=== PATIENT | female | born 1935 | race Caucasian/White ===

== ENCOUNTER → 2018-08-01 09:31 | Outpatient (CLI) | payer OTHER, SELFPAY ==
[2018-08-01 09:57] LABS: Hemoglobin 13.6 g/dL (12.0-16.0); Mean Corpuscular Hemoglobin 29.1 PG (26-34); Mean Corpuscular Volume 85.4 fL (80-100); Platelet Count 274 X10^3/uL (150-400); Red Blood Cell Count 4.68 X10^6/uL (4.0-5.2); Red Cell Distribution Width 14.4 % (11.6-14.8); White Blood Cell Count 7.5 X10^3/uL (4.5-11.0)
[2018-08-01 10:10] LABS: Hemoglobin A1C% w Est Avg Glu 5.9 % (4.0-6.0)
[2018-08-01 10:15] LABS: Alanine Aminotransferase 33 IU/L (9-52); Albumin 4.6 g/dL (3.5-5.0); Albumin Globulin Ratio 1.5 (1.0-2.8); Alkaline Phosphatase 71 U/L (38-126); Aspartate Aminotransferase 28 IU/L (14-36); BUN Creatinine Ratio 12.9 (6-22); Bilirubin Total 0.3 mg/dL (0.2-1.3); Blood Urea Nitrogen 9 mg/dL (7-17); Calcium 9.4 mg/dL (8.4-10.2); Carbon Dioxide 27 mmol/L (22-32); Chloride 101 mmol/L (98-107); Cholesterol 171 mg/dL (140-199); Estimated Glomerular Filt Rate > 60.0 mL/min (>60); Globulin 3.1 g/dL (1.7-4.1); Glucose 97 mg/dL (80-110); HDL Cholesterol 56 mg/dL (40-60); HEMOLYSIS < 15 (0-50); LDL Cholesterol Calculated 80 mg/dL (<100); Potassium 3.8 mmol/L (3.4-5.1); Sodium 140 mmol/L (137-145); Total Protein 7.7 g/dL (6.3-8.2); Triglycerides 173 mg/dL (35-150)
[2018-08-01 10:33] LABS: Neutrophils Absolute Manual 3975 /uL (3000-5900); Total Cells Counted 100
[2018-08-01 10:43] LABS: Thyroid Stimulating Hormone 1.62 uIU/mL (0.47-4.68)
== END ==
PROVIDERS: Family Provider Family Medicine; PCP Family Medicine; Visit Provider Family Medicine
DX: E78.5 Hyperlipidemia, unspecified (principal); I10 Essential (primary) hypertension; Z13.0 Encounter for screening for diseases of the blood and blood-forming organs and certain disorders involving the immune mechanism; Z13.29 Encounter for screening for other suspected endocrine disorder
CPT/HCPCS: 36415; 80053; 80061; 83036; 84443; 85025

== ENCOUNTER → 2018-08-14 12:39 | Outpatient (CLI) | payer OTHER, SELFPAY ==
[2018-08-17 16:01] LABS: Fecal Immunochemical Test NOT DETECTED
== END ==
PROVIDERS: PCP Family Medicine; Visit Provider Family Medicine
DX: Z12.11 Encounter for screening for malignant neoplasm of colon (principal)
CPT/HCPCS: 82274

== ENCOUNTER → 2018-08-25 12:17 | Outpatient (CLI) | payer OTHER, SELFPAY ==
--- NOTE | 2018-08-25 | DI.MG.S_ITS ---
BILATERAL DIGITAL SCREENING MAMMOGRAM 3D/2D WITH CAD: 08/25/2018 CLINICAL: Routine screening. Family history of breast cancer. Comparison is made to exams dated: 04/29/2017 mammogram, 04/14/2016 mammogram, and 04/03/2015 mammogram - [facility]. The tissue of both breasts is heterogeneously dense. This may lower the sensitivity of mammography. Current study was also evaluated with a Computer Aided Detection (CAD) system. No significant masses, calcifications, or other findings are seen in either breast. There has been no significant interval change. IMPRESSION: NEGATIVE There is no mammographic evidence of malignancy. A 1 year screening mammogram is recommended. This exam was interpreted at Station ID: [id number]. NOTE: For mammograms, a report in lay terms will be sent to the patient. Approximately 15% of breast malignancies will not be visualized mammographically. In the management of a palpable breast mass, a negative mammogram must not discourage biopsy of a clinically suspicious lesion. Electronically Signed By: Jon mathias/chas:08/25/2018 14:22:28 letter sent: Normal Exam ACR BI-RADS Category 1: Negative [id number]
== END ==
PROVIDERS: Family Provider Family Medicine; PCP Family Medicine; Visit Provider Family Medicine
DX: Z12.31 Encounter for screening mammogram for malignant neoplasm of breast (principal); M81.0 Age-related osteoporosis without current pathological fracture; Z78.0 Asymptomatic menopausal state; E07.9 Disorder of thyroid, unspecified; Z80.3 Family history of malignant neoplasm of breast; Z82.62 Family history of osteoporosis; Z87.891 Personal history of nicotine dependence
CPT/HCPCS: 77063; 77067; 77080

== ENCOUNTER → 2018-08-29 14:02 | Outpatient (CLI) | payer OTHER, SELFPAY ==
--- NOTE | 2018-08-29 | DI.CT.S_ITS ---
PROCEDURE: CT ANGIO CHEST PE PROTOCOL INDICATIONS: PULMONARY NODULES TECHNIQUE: After the administration of intravenous contrast, 2 mm thick sections acquired from the pulmonary apices to the posterior costophrenic angles. 3-dimensional maximum intensity projection (MIP) coronal and sagittal reformats were then acquired through the thorax. For radiation dose reduction, the following was used: automated exposure control, adjustment of mA and/or kV according to patient size. COMPARISON: [facility], CT, THORAX WITHOUT CONTRAST, 07/18/2017, 16:13. FINDINGS: Image quality: Excellent. Pulmonary arteries: Pulmonary arteries are normal in size, and demonstrate no intraluminal filling defects to suggest central pulmonary embolism. Lungs and pleura: Bibasilar scarring. Previously seen small bilateral pulmonary nodules are unchanged. No new pulmonary nodules are present. There is moderate apical predominant emphysema. No pleural effusions or pneumothorax. Central and peripheral airways are patent. Mediastinum: Heart size is normal, without pericardial effusion. No mediastinal or hilar adenopathy. Thoracic aorta is normal in caliber and enhancement. Esophagus is normal in caliber. Small hiatal hernia. Bones and chest wall: No suspicious bony lesions. Left chest wall pacer. Ribs and thoracic spine appear intact throughout. Thyroid gland is within normal limits. No axillary or supraclavicular adenopathy. Abdomen: Visualized upper abdominal solid organs appear normal in the early arterial phase of enhancement. IMPRESSION: 1. No pulmonary embolus. 2. No change in small bilateral pulmonary nodules. No new pulmonary nodules. 3. Emphysema. 4. Small hiatal hernia. Dictated by: David Marrufo M.D. on 08/29/2018 at 15:36 Approved by: David Marrufo M.D. on 08/29/2018 at 15:41
[2018-08-29 14:31] LABS: BUN Creatinine Ratio 18.6 (6-22); Blood Urea Nitrogen 13 mg/dL (7-17); Estimated Glomerular Filt Rate > 60.0 mL/min (>60)
== END ==
PROVIDERS: Family Provider Family Medicine; PCP Family Medicine; Visit Provider Internal Medicine Critical Care Medicine
DX: J43.9 Emphysema, unspecified (principal); R91.8 Other nonspecific abnormal finding of lung field; K44.9 Diaphragmatic hernia without obstruction or gangrene
CPT/HCPCS: 36415; 71275; 82565; 84520; Q9967

== ENCOUNTER 2018-12-06 14:30 | Outpatient (RCR) | payer OTHER, SELFPAY ==
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
== END 2019-02-06 11:58 | disposition home or self-care (01) ==
LOC: PHYS 14:30
PROVIDERS: PCP Family Medicine; Visit Provider Family Medicine
DX: M54.5 Low back pain (principal)
CPT/HCPCS: 97010; 97014; 97110; 97112; 97140; 97162; G0283

== ENCOUNTER 2018-12-14 20:49 | Emergency (ER) | payer OTHER, SELFPAY ==
[2018-12-14 20:57] VITALS: BP 195/89; PULSE 89; RESP 15; TEMP 37; O2SAT 93
--- NOTE | 2018-12-14 21:45 | DI.CT.S_ITS ---
PROCEDURE: CT HEAD/BRAIN WO CON INDICATIONS: blurry vision now resolved TECHNIQUE: Noncontrast 4.5 mm thick angled axial sections acquired from the foramen magnum to the vertex, with coronal and sagittal reformats. For radiation dose reduction, the following was used: automated exposure control, adjustment of mA and/or kV according to patient size. COMPARISON: None. FINDINGS: Image quality: Excellent. CSF spaces: Basal cisterns are patent. No extra-axial fluid collections. The ventricles are symmetric in size and shape. Brain: No intracranial bleeds or masses. There is cerebral volume loss for age, with resultant ventricular and sulcal prominence. There are periventricular and deep white matter chronic small vessel ischemic changes. There is intracranial internal carotid artery atherosclerosis. Skull and face: Calvarium and visualized facial bones appear intact, without suspicious lesions. Sinuses: Visualized sinuses and mastoids are clear. IMPRESSION: No CT evidence of acute intracranial pathology. 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 Dictated by: Colin Brambila M.D. on 12/14/2018 at 21:59 Approved by: Colin Brambila M.D. on 12/14/2018 at 22:00
[2018-12-14 22:34] LABS: Add Manual Diff / Slide Review NO; Basophils Absolute Auto 100 /uL (0-100); Basophils Percent Auto 0.7 % (0-2); Eosinophils Absolute Auto 200 /uL (0-450); Eosinophils Percent Auto 2.2 % (2-4); Hemoglobin 13.3 g/dL (12.0-16.0); Lymphocytes Absolute Auto 3100 /uL (1100-4500); Lymphocytes Percent Auto 27.3 % (25-40); Mean Corpuscular HGB Conc 33.3 % (30-36); Mean Corpuscular Hemoglobin 28.9 PG (26-34); Mean Corpuscular Volume 86.8 fL (80-100); Monocytes Absolute Auto 1200 /uL (0-900); Monocytes Percent Auto 10.4 % (3-14); Neutrophils Absolute Auto 6600 /uL (1500-7000); Neutrophils Percent Auto 59.4 % (50-75); Platelet Count 273 X10^3/uL (150-400); Red Cell Distribution Width 13.9 % (11.6-14.8); White Blood Cell Count 11.2 X10^3/uL (4.5-11.0)
[2018-12-14 22:39] VITALS: BP 188/89; PULSE 75; RESP 18; O2SAT 95
[2018-12-14 22:39] LABS: Alanine Aminotransferase 27 IU/L (9-52); Albumin Globulin Ratio 1.5 (1.0-2.8); Alkaline Phosphatase 86 U/L (38-126); Aspartate Aminotransferase 30 IU/L (14-36); BUN Creatinine Ratio 21.4 (6-22); Bilirubin Total 0.3 mg/dL (0.2-1.3); Blood Urea Nitrogen 15 mg/dL (7-17); Calcium 9.7 mg/dL (8.4-10.2); Carbon Dioxide 27 mmol/L (22-32); Chloride 97 mmol/L (98-107); Creatine Kinase 118 U/L (30-135); Estimated Glomerular Filt Rate > 60.0 mL/min (>60); Globulin 3.4 g/dL (1.7-4.1); Glucose 111 mg/dL (80-110); Potassium 3.7 mmol/L (3.4-5.1); Sodium 135 mmol/L (137-145); Total Protein 8.4 g/dL (6.3-8.2)
[2018-12-14 22:49] LABS: Bacteria Urine Occasional (0-1); Culture Indicated Urine Specimen Cultured; RBC Urine 0-1/HPF (0-5/HPF); Squamous Epithelial Cell Urine 1-5 /HPF; WBC Urine 1-5/HPF (0-5/HPF)
[2018-12-14 22:50] LABS: Troponin I < 0.012 ng/mL (0.01-0.034)
[2018-12-14 22:55] LABS: CKMB % Relative Index 1.7 % (1.5-5.0); Creatine Kinase MB 1.97 ng/mL (<2.37); HEMOLYSIS 29 (0-50)
[2018-12-14 23:10] VITALS: O2SAT 91
[2018-12-14 23:25] VITALS: BP 166/76; PULSE 82; RESP 18; O2SAT 95
--- NOTE | 2018-12-14 23:39 | ED_ITS ---
HPI - Neuro Symptoms/Deficit General Chief Complaint: Eye Problems Stated Complaint: STATES BP IS TOO HIGH Time Seen by Provider: 12/14/18 21:45 Source: patient Mode of arrival: ambulatory Limitations: no limitations History of Present Illness HPI Narrative: Patient is an 83-year-old female who presents with eye vision changes. She states that her PCP has been changing in managing her blood pressure medication. She states her losartan was increased to 150 mg once a day. Tonight she was reading when she says her right eye got yellow vision it lasted for a few seconds and went away. She has noticed that her blood pressure has remained elevated. She had no slurring of speech no facial drooping no arm weakness or leg weakness and her symptoms have completely resolved. She states that she was taking her blood pressure every day once a day and noticed it was getting elevated at which point she talked her PCP but has not yet been seen to evaluate her. On Anticoagulants: No Related Data Home Medications Medication Instructions Recorded Confirmed [SUPER B COMPLEX] #0 06/24/17 12/15/18 [TURMERIC CURCUMIN] #0 06/24/17 12/15/18 [VISION FORMULA] #0 06/24/17 12/15/18 folic acid #0 06/24/17 12/15/18 multivitamin [Multiple Vitamins] 1 tab PO QDAY #0 06/24/17 12/15/18 potassium gluconate 99 mg PO #0 06/24/17 12/15/18 omega 7-ily-hhy-fish oil [Fish Oil] 1,000 mg PO #0 06/28/17 12/15/18 vitamin E 400 iu PO QDAY #0 06/28/17 12/15/18 tiotropium bromide 2.5 2 puff INHALATION DAILY 08/11/18 12/15/18 mcg/actuation mist for inhalation cholecalciferol (vitamin D3) 2,000 2,000 unit PO DAILY 12/15/18 12/15/18 unit capsule magnesium 250 mg tablet 250 mg PO DAILY 12/15/18 12/15/18 rosuvastatin 10 mg tablet 10 mg PO DAILY 12/15/18 12/15/18 Previous Rx's Medication Instructions Recorded Spacer: Inhaler Spacer Device ea PO BID #1 06/06/17 levalbuterol HFA 45 mcg/actuation 1 puff INHALATION Q6HP PRN #15 gm 02/16/18 aerosol inhaler levothyroxine 125 mcg tablet 125 mcg PO QDAY #90 tab 05/09/18 salmeterol 50 mcg/dose blister 1 inhalation INHALATION BID #60 08/18/18 powder for inhalation each phenobarbital 64.8 mg tablet 64.8 mg PO HS #90 tab 10/10/18 clonazepam 0.5 mg tablet 1.5 mg PO HS #270 tab 12/11/18 amlodipine 10 mg tablet 10 mg PO DAILY #30 tab 12/15/18 losartan 100 1 tab PO DAILY #30 tab 12/15/18 mg-hydrochlorothiazide 25 mg tablet Allergies Allergy/AdvReac Type Severity Reaction Status Date / Time atenolol [ATENOLOL] Allergy Mild COUGH Verified 12/15/18 09:47 phenindamine [PHENINDAMINE] Allergy Unknown Verified 12/15/18 09:47 pseudoephedrine Allergy Unknown Verified 12/15/18 09:47 [PSEUDOEPHEDRINE] caffeine AdvReac Intermediate panic Verified 12/15/18 09:47 attacks Review of Systems Review of Systems ROS Unobtainable: All systems reviewed & are unremarkable except as noted in HPI and below Constitutional Denies chills, Denies fever(s), Denies lethargy and Denies weakness Eyes Reports as per HPI, Reports blurry vision (right eye) and Denies diplopia ENT Ears, Nose, Mouth, and Throat: Denies change in voice, Denies neck pain and Denies sore throat Cardiovascular Denies chest pain, Denies irregular heart rhythm, Denies lightheadedness, Denies palpitations, Denies dyspnea, Denies dyspnea on exertion and Denies orthopnea Respiratory Denies cough, Denies dyspnea, Denies dyspnea on exertion and Denies wheezing Gastrointestinal Gastrointestinal: Denies abdominal pain, Denies change in bowel habits, Denies diarrhea, Denies nausea and Denies vomiting Genitourinary Denies hematuria, Denies flank pain, Denies urinary incontinence and Denies urinary urgency Musculoskeletal Denies neck pain Integumentary/Breasts Denies pruritus, Denies erythema, Denies rash and Denies wounds Neurologic Denies weakness Endocrine Denies palpitations Allergic/Immunologic Denies wheezing [facility] Medical History AAA (abdominal aortic aneurysm) (Chronic) Actinic keratosis (Chronic) COPD (chronic obstructive pulmonary disease) (Chronic) Chronic back pain (Chronic 1955) Hypertension (Chronic) Hypothyroidism (Chronic) Osteoarthritis (Chronic 2009) Osteoporosis (Chronic) RLS (restless legs syndrome) (Chronic 1959) Seizures (Chronic 1953) Tinnitus (Chronic) Chicken pox (Resolved 1945) DVT (deep venous thrombosis) (Resolved) Fracture of left patella (Resolved 2009) Fracture of right wrist (Resolved 2009) Retinal detachment (Resolved 2011) SCCA (squamous cell carcinoma) of skin (Resolved 2000) Skin cancer (Resolved 2000) Surgical History Anesthesia (Resolved) History of cataract removal with insertion of prosthetic lens (Resolved 2013) History of left knee surgery (Resolved 2009) History of squamous cell carcinoma excision (Resolved 2000) Status post cholecystectomy (Resolved 2004) Status post wrist surgery (Resolved 2009) Family History Brother Age: 76 Stroke Father Stroke Grandfather Heart disease Grandmother Stroke Mother Mental health problem Grandmother Stroke Grandfather No problems noted. Social History marital status: number of children: 2 household members: spouse lives independently: Yes caregiver/support person: No housing: house Smoking Status: Former smoker second hand exposure: No alcohol intake: current substance use type: does not use Family History Brother Age: 76 Stroke Father Stroke Grandfather Heart disease Grandmother Stroke Mother Mental health problem Grandmother Stroke Grandfather No problems noted. Social History marital status: number of children: 2 household members: spouse lives independently: Yes caregiver/support person: No housing: house Smoking Status: Former smoker second hand exposure: No alcohol intake: current substance use type: does not use Exam Initial Vital Signs Initial Vital Signs: Vital Signs Temperature 98.6 F 12/14/18 20:57 Pulse Rate 89 12/14/18 20:57 Respiratory Rate 15 12/14/18 20:57 Blood Pressure 195/89 H 12/14/18 20:57 Pulse Oximetry 93 04/04/19 20:57 GENERAL: Alert pleasant well-appearing elderly female and in no acute distress. HEENT: Head atraumatic,EOMI, pupils reactive, face symmetric, moist mucous membranes, neck is supple no JVD CARDIOVASCULAR: Regular rate and rhythm without murmurs, rubs or gallops. RESPIRATORY: Breath sounds equal bilaterally, no wheezes rales or rhonchi. ABDOMEN: Soft, nontender. Normoactive bowel sounds all 4 quadrants. No guarding or rebound. EXTREMITIES: Normal range of motion, no clubbing or edema. Neurovascularly intact NEUROLOGICAL: Alert and oriented x4.Normal gait and speech. Cranial nerves II through XII grossly intact. Good [id number], good [id number], strength equal bilaterally, no dysarthria or aphasia, sensation in tact to soft touch bilaterally, no visual changes, no facial droop SKIN: Warm, dry, no laceration, no petechiae, no rashes or lesions. Scores NIH Stroke Scale Level of Conciousness: Alert, keenly responsive Ask month/age: Answers both questions correctly. Open/close eyes, close hand: Performs both tasks correctly Best gaze horizontal: Normal Visual smith: No visual loss Facial palsy: Normal symetrical movement Left arm drift: No drift for full 10 sec Right arm drift: No drift for full 10 sec Left leg drift: No drift for full 10 sec Right leg drift: No drift for full 10 sec Limb ataxia: Absent Sensory on face/arms/legs: Normal, no sensory loss Best language: No aphasia, normal Dysarthria: Normal Extinction or inattention: No abnormality Total NIH Stroke scale score: 0 Course Orders Ordered: Discontinued Medications Aspirin (Aspirin Chew) 324 mg PO NOW ONE Stop: 12/14/18 23:54 Last Admin: 12/15/18 00:01 Dose: 324 mg Vital Signs - 8 hr 12/14/18 22:39 12/14/18 23:10 12/14/18 23:25 Pulse Rate 75 82 Respiratory Rate 18 18 Blood Pressure [Right Arm] 188/89 H 166/76 H Pulse Oximetry 95 91 95 MDM - Neuro Symptoms/Deficit Lab Data Attestation: I reviewed the patient's lab results. Result diagrams: 12/14/18 22:17 12/14/18 22:17 Lab Results 12/14/18 12/14/1812/14/19 Range/Units 22:07 22:17 22:17 WBC 11.2 H (4.5-11.0) X10^3/uL RBC 4.60 (4.0-5.2) X10^6/uL Hgb 13.3 (12.0-16.0) g/dL Hct 40.0 (36-46) % MCV 86.8 (80-100) fL MCH 28.9 (26-34) PG MCHC 33.3 (30-36) % RDW 13.9 (11.6-14.8) % Plt Count 273 (150-400) X10^3/uL Neut % (Auto) 59.4 (50-75) % Lymph % (Auto) 27.3 (25-40) % [place] % (Auto) 10.4 (3-14) % Eos % (Auto) 2.2 (2-4) % Baso % (Auto) 0.7 (0-2) % Neut # (Auto) 6600 (6172-7050) /uL Lymph # (Auto) 3100 (8949-8474) /uL [place] # (Auto) 1200 H (0-900) /uL Eos # (Auto) 200 (0-450) /uL Baso # (Auto) 100 (0-100) /uL Sodium 135 L (137-145) mmol/L Potassium 3.7 (3.4-5.1) mmol/L Chloride 97 L (98-107) mmol/L Carbon Dioxide 27 (22-32) mmol/L BUN 15 (7-17) mg/dL Creatinine 0.70 (0.52-1.04) mg/dL Estimated GFR > 60.0 (>60) mL/min BUN/Creatinine Ratio 21.4 (6-22) Glucose 111 H (80-110) mg/dL Calcium 9.7 (8.4-10.2) mg/dL Total Bilirubin 0.3 (0.2-1.3) mg/dL AST 30 (14-36) IU/L ALT 27 (9-52) IU/L Alkaline Phosphatase 86 (38-126) U/L Total Creatine Kinase 118 (30-135) U/L CK-MB (CK-2) 1.97 (<2.37) ng/mL CK-MB (CK-2) Rel Index 1.7 (1.5-5.0) % Troponin I < 0.012 (0.01-0.034) ng/mL Total Protein 8.4 H (6.3-8.2) g/dL Albumin 5.0 (3.5-5.0) g/dL Globulin 3.4 (1.7-4.1) g/dL Albumin/Globulin Ratio 1.5 (1.0-2.8) Urine RBC 0-1/hpf (0-5/HPF) Urine WBC 1-5/hpf (0-5/HPF) Ur Squamous Epith Cells 1-5 /hpf Urine Bacteria Occasional (0-1) (None) Ur Culture Indicated? Specimen cultured Urine Dip Bedside Urine Glucose Negative Bedside Urine Bilirubin - Negative Bedside Urine Ketone - Negative Urine Specific Kimberly 1.015 Bedside Urine Occult Blood +/- Bedside Urine pH 6.5 Bedside Urine Protein - Negative Bedside Urine Urobilinogen - Negative Bedside Urine Nitrite - Negative Bedside Urine Leukocytes +/- [address] scan - head: Radiologist's impression: PROCEDURE: CT HEAD/BRAIN WO CON INDICATIONS: blurry vision now resolved TECHNIQUE: Noncontrast 4.5 mm thick angled axial sections acquired from the foramen magnum to the vertex, with coronal and sagittal reformats. For radiation dose reduction, the following was used: automated exposure control, adjustment of mA and/or kV according to patient size. COMPARISON: None. FINDINGS: Image quality: Excellent. CSF spaces: Basal cisterns are patent. No extra-axial fluid collections. The ventricles are symmetric in size and shape. Brain: No intracranial bleeds or masses. There is cerebral volume loss for age, with resultant ventricular and sulcal prominence. There are periventricular and deep white matter chronic small vessel ischemic changes. There is intracranial internal carotid artery atherosclerosis. Skull and face: Calvarium and visualized facial bones appear intact, without suspicious lesions. Sinuses: Visualized sinuses and mastoids are clear. IMPRESSION: No CT evidence of acute intracranial pathology. 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 Dictated by: Colin Brambila M.D. on 12/14/2018 at 21:59 MDM Narrative Medical decision making narrative: The patient has been no true focal neurologic deficits. She says her vision was yellow and blurry lasting only few seconds in her right eye. Symptoms completely resolved now. Blood pressure has come down without any intervention. His I strongly recommended she see her PCP in regards to blood pressure control. We talked about documenting and monitoring home blood pressure. This time she asked if she should take losartan 150 twice daily I discussed with her it is important not to change medication especially because that is already the highest dose and she will likely need other medication. However this is to be decided with her PCP. At this time she feels ready and able to go home. Unfortunately EKG was ordered but not done for discharge. patient not having any chest pain. Discharge Plan Departure Patient Disposition: Home Clinical Impression: Hypertension Qualifiers: Hypertension type: essential hypertension Qualified Code(s): I10 - Essential (primary) hypertension Discharge Date/Time: 12/15/18 00:10 Interventions: ED Discharge Assessment Last Done: 12/15/18 00:32 Instructions: Essential Hypertension, DI for Transient Ischemic Attack Activity Restrictions/Additional Instructions: *You have been diagnosed with hypertension *What to do: At this time no sign of stroke or mini stroke. However persistently elevated blood pressure can lead to increased risk for stroke and heart attack. It is imperative that you talk to her PCP about her blood pressure medication and will likely need additional medications. Recommend taking her blood pressure once a day every day at the same time and recording it. Typically 1st thing in the morning or before bedtime are recommended. *Continue to take medications as directed Aspirin 81 mg once a day-help provide and stroke *Follow up with your primary care provider in 2-3 days *Return to ER if you should have facial drooping difficulty speaking arm wea kness leg weakness chest pain or heart palpitations shortness of breath please call 911 or any new, worsening or concerning symptoms Prescriptions: No Action Spacer: Inhaler Spacer Device PO BID Qty: 1 RF: 1 [VISION FORMULA] Qty: 0 RF: 0 potassium gluconate 99 MG tablet 99 mg PO Qty: 0 RF: 0 [SUPER B COMPLEX] Qty: 0 RF: 0 [TURMERIC CURCUMIN] Qty: 0 RF: 0 multivitamin [Multiple Vitamins] 1 EACH tablet 1 tab PO QDAY Qty: 0 RF: 0 folic acid 400 mcg Tablet Qty: 0 RF: 0 omega 4-edk-tfv-fish oil [Fish Oil] 1,000 MG capsule 1,000 mg PO Qty: 0 RF: 0 vitamin E 400 UNIT capsule 400 iu PO QDAY Qty: 0 RF: 0 levalbuterol tartrate [Xopenex HFA] 45 mcg/actuation HFA aerosol inhaler 1 puff INHALATION Q6HP PRN (Reason: shortness of breath) Qty: 15 RF: 11 levothyroxine [Synthroid] 125 mcg tablet 125 mcg PO QDAY Qty: 90 RF: 3 salmeterol [Serevent Diskus] 50 mcg/dose blister with device 1 inhalation INHALATION BID Qty: 60 RF: 11 phenobarbital 64.8 mg tablet 64.8 mg PO HS Qty: 90 RF: 0 clonazepam 0.5 mg tablet 1.5 mg PO HS Qty: 270 RF: 0 tiotropium bromide [Spiriva Respimat] 2.5 mcg/actuation mist 2 puff INHALATION DAILY RF: 0 rosuvastatin 10 mg tablet 10 mg PO DAILY RF: 0 losartan-hydrochlorothiazide 100-25 mg tablet 1 tab PO DAILY Qty: 30 RF: 0 amlodipine [Norvasc] 10 mg tablet 10 mg PO DAILY Qty: 30 RF: 0 cholecalciferol (vitamin D3) 2,000 unit capsule 2,000 unit PO DAILY RF: 0 magnesium 250 mg tablet 250 mg PO DAILY RF: 0 Referrals: Yris Zaman MD [Primary Care Provider] -
--- NOTE | 2018-12-14 23:46 | PC.NURSE ---
pt asking for oxygen. states she uses cpap when she lays down. pt's oxygen sats ranging between 90-93 on ra. oxygen placed on pt. sats now 95%
[2018-12-15] MEDS: ASPIRIN 81 MG TAB 324 MG PO (00:01)
== END 2018-12-15 00:10 | disposition home or self-care (01) ==
PROVIDERS: Emergency Provider Emergency Medicine; Family Provider Family Medicine; PCP Family Medicine
DX: I10 Essential (primary) hypertension (principal); H53.8 Other visual disturbances
CPT/HCPCS: 36591; 70450; 80053; 81003; 81015; 82550; 82553; 84484; 85025; 87086; 99283; 99284; 99291

== ENCOUNTER → 2019-01-11 11:55 | Outpatient (CLI) | payer OTHER, SELFPAY ==
[2019-01-11 12:25] LABS: Add Manual Diff / Slide Review NO; Basophils Absolute Auto 0 /uL (0-100); Basophils Percent Auto 0.3 % (0-2); Eosinophils Absolute Auto 100 /uL (0-450); Eosinophils Percent Auto 1.5 % (2-4); Hematocrit 38.5 % (36-46); Hemoglobin 13.2 g/dL (12.0-16.0); Lymphocytes Absolute Auto 2300 /uL (1100-4500); Mean Corpuscular HGB Conc 34.2 % (30-36); Mean Corpuscular Hemoglobin 29.2 PG (26-34); Mean Corpuscular Volume 85.3 fL (80-100); Monocytes Absolute Auto 900 /uL (0-900); Monocytes Percent Auto 10.5 % (3-14); Neutrophils Absolute Auto 5600 /uL (1500-7000); Neutrophils Percent Auto 61.7 % (50-75); Platelet Count 289 X10^3/uL (150-400); Red Blood Cell Count 4.52 X10^6/uL (4.0-5.2); Red Cell Distribution Width 13.7 % (11.6-14.8)
== END ==
PROVIDERS: Family Provider Family Medicine; PCP Family Medicine; Visit Provider Internal Medicine Cardiovascular Disease
DX: I10 Essential (primary) hypertension (principal)
CPT/HCPCS: 36415; 85025

== ENCOUNTER → 2019-01-26 09:04 | Outpatient (CLI) | payer OTHER, SELFPAY ==
[2019-01-26 10:06] LABS: Add Manual Diff / Slide Review NO; Basophils Absolute Auto 100 /uL (0-100); Basophils Percent Auto 0.7 % (0-2); Eosinophils Absolute Auto 200 /uL (0-450); Eosinophils Percent Auto 2.8 % (2-4); Hematocrit 38.8 % (36-46); Hemoglobin 13.4 g/dL (12.0-16.0); Lymphocytes Absolute Auto 2300 /uL (1100-4500); Lymphocytes Percent Auto 27.8 % (25-40); Mean Corpuscular HGB Conc 34.4 % (30-36); Mean Corpuscular Hemoglobin 29.3 PG (26-34); Mean Corpuscular Volume 85.1 fL (80-100); Monocytes Absolute Auto 700 /uL (0-900); Monocytes Percent Auto 8.9 % (3-14); Neutrophils Absolute Auto 4900 /uL (1500-7000); Neutrophils Percent Auto 59.8 % (50-75); Platelet Count 283 X10^3/uL (150-400); Red Blood Cell Count 4.56 X10^6/uL (4.0-5.2); Red Cell Distribution Width 13.8 % (11.6-14.8); White Blood Cell Count 8.2 X10^3/uL (4.5-11.0)
[2019-01-26 11:00] LABS: BUN Creatinine Ratio 15.7 (6-22); Blood Urea Nitrogen 11 mg/dL (7-17); Calcium 9.8 mg/dL (8.4-10.2); Carbon Dioxide 27 mmol/L (22-32); Chloride 98 mmol/L (98-107); Cholesterol 157 mg/dL (140-199); Estimated Glomerular Filt Rate > 60.0 mL/min (>60); Glucose 97 mg/dL (80-110); HDL Cholesterol 62 mg/dL (40-60); HEMOLYSIS < 15 (0-50); LDL Cholesterol Calculated 69 mg/dL (<100); Potassium 4.8 mmol/L (3.4-5.1); Sodium 137 mmol/L (137-145); Triglycerides 129 mg/dL (35-150)
== END ==
PROVIDERS: Family Provider Family Medicine; PCP Family Medicine; Visit Provider Internal Medicine Cardiovascular Disease
DX: I10 Essential (primary) hypertension (principal); E78.5 Hyperlipidemia, unspecified
CPT/HCPCS: 36415; 80048; 80061; 85025

== ENCOUNTER → 2019-01-30 12:13 | Outpatient (CLI) | payer OTHER, SELFPAY ==
--- NOTE | 2019-01-30 | DI.US.S_ITS ---
PROCEDURE: US CAROTID DOPPLER BI INDICATIONS: AMAUROSIS FUGAX TECHNIQUE: Color and pulse Doppler interrogation was performed of both carotid systems, with image documentation and velocity measurements. COMPARISON: None. FINDINGS: Stenosis calculations are based on SRU (Society of Radiologists in Ultrasound) criteria. Right side: Brachial blood pressure: 141/72 mm Hg. Common carotid artery peak systolic velocity: 95 cm/sec. Internal carotid artery peak systolic velocity: 99 cm/sec. Internal carotid artery end diastolic velocity: 21 cm/sec. External carotid artery peak systolic velocity: 85 cm/sec. ICA/CCA peak systolic ratio: 1.1. Rolon scale imaging description: Mild calcific and soft plaque Percent internal carotid artery stenosis: Less than 50% stenosis. Vertebral artery: Flow direction is antegrade. Left side: Brachial blood pressure: 132/67 mm Hg. Common carotid artery peak systolic velocity: 82 cm/sec. Internal carotid artery peak systolic velocity: 83 cm/sec. Internal carotid artery end diastolic velocity: 21 cm/sec. External carotid artery peak systolic velocity: 66 cm/sec. ICA/CCA peak systolic ratio: 1.0. Rolon scale imaging description: Mild soft plaque Percent internal carotid artery stenosis: Less than 50% stenosis. Vertebral artery: Flow direction is antegrade. IMPRESSION: Less than 50% stenosis at the proximal internal carotid arteries bilaterally there is slightly greater on the right than the left, and without significant worsening over time. Dictated by: Blake Wick M.D. on 01/30/2019 at 15:46 Approved by: Blake Wick M.D. on 01/30/2019 at 16:25
== END ==
PROVIDERS: Family Provider Family Medicine; PCP Family Medicine; Visit Provider Ophthalmology
DX: I65.23 Occlusion and stenosis of bilateral carotid arteries (principal)
CPT/HCPCS: 93880

== ENCOUNTER → 2019-03-21 13:05 | Outpatient (CLI) | payer OTHER, SELFPAY | PROVIDERS: Family Provider Family Medicine; PCP Family Medicine; Visit Provider Hospitalist | DX: Z13.820 Encounter for screening for osteoporosis (principal); Z78.0 Asymptomatic menopausal state; M81.0 Age-related osteoporosis without current pathological fracture; E07.9 Disorder of thyroid, unspecified; Z87.891 Personal history of nicotine dependence | CPT/HCPCS: 77080 ==

== ENCOUNTER → 2019-04-13 14:06 | Outpatient (CLI) | payer OTHER, SELFPAY ==
--- NOTE | 2019-04-13 | DI.ECHO.S_ITS ---
[place] [facility]---------+ [facility] +---------+ : : [address] : : : : [id number] : : : : Phone: [phone]+ Echocardiogram Report + + :Name: JUAN MANUEL RIZO Study Date: 04/13/2019 Height: 64 in : :[facility] Exam Location: [facility] Weight: 187 lb : : Gender: Female BSA: 1.9 m2 : :: 1935 Age: 83 yrs BP: 155/78 mmHg: :Reason For Study: AFIB : : Performed By: Madhu Patel : :Referring: CESAR FERRER : + + Interpretation Summary 1) Normal left ventricular thickness, size, and systolic function (EF 60-65%). 2) Apical wall motion abnormality may reflect pacemaker activation. 3) Diastolic parameters suggest a pseudonormalization pattern, consistent with probable elevated filling pressures. 4) Normal right ventricular size and function. Pacemaker lead visualized in the right ventricle. 5) The right ventricular systolic pressure is estimated to be at least 35 mmHg based on an estimated right atrial pressure of 3 mm Hg. 6) Hypertension present during the study (BP 155/78mmHg). 7) Compared to the Echo done 06/24/2017, grade 2 diastolic dysfunction is present on this study. Procedure: A two-dimensional transthoracic echocardiogram with color flow and Doppler was performed. The study quality was technically good. The study quality was technically adequate. Images from the parasternal window were difficult to obtain and are suboptimal in quality. Comparison is made with the echocardiogram of 06/24/17. The patient has a paced rhythm. Left Ventricle: The left ventricle is normal in size. There is normal left ventricular wall thickness. The ejection fraction is estimated to be 60-65%. There are no focal wall motion abnormalities. Apical wall motion abnormality may reflect pacemaker activation. Diastolic parameters suggest a pseudonormalization pattern, consistent with probable elevated filling pressures. Right Ventricle: The right ventricle is normal in size and function. There is a pacemaker lead in the right ventricle. Atria: The left atrium is moderately dilated. Right atrial size is normal. The interatrial septum is intact with no evidence for an atrial septal defect. Mitral Valve: There is mild mitral annular calcification. There is trace mitral regurgitation. Aortic Valve: The aortic valve is trileaflet. The aortic valve opens well. There is no aortic valve stenosis. No aortic regurgitation is present. Tricuspid Valve: The tricuspid valve is normal in structure and function. There is mild tricuspid regurgitation. The right ventricular systolic pressure is estimated to be at least 35 mmHg based on an estimated right atrial pressure of 3 mm Hg. Pulmonic Valve: The pulmonic valve is normal in structure and function. There is trace pulmonic regurgitation. Great Vessels: The aortic root is normal size. The dimensions of the ascending aorta are normal. The pulmonary artery is normal size. The IVC is of normal diameter and collapses greater than 50% with a sniff. This suggests a low right atrial pressure of 3 mm Hg. Pericardium/ Pleura There is no pericardial effusion. There is no pleural effusion. MMode/2D Measurements & Calculations LVIDd: 4.6 cm LVOT diam: 2.0 cm LVIDs: 3.2 cm Ao root diam: 3.3 cm FS: 30.2 % Aortic Jxn: 2.7 cm EPSS: 0.74 cm asc Aorta Diam: 3.3 cm IVSd: 0.86 cm LVPWd: 0.88 cm LV pascual. diameter/BSA (cm/m^2): 2.4 LV sys. diameter/BSA (cm/m^2): 1.7 LA A2 area: 23.0 cm2 RA long axis: 5.3 cm LA A4 area: 20.9 cm2 RA area: 19.1 cm2 LA length (vol): 5.6 cm RA vol: 58.1 ml LA vol: 72.5 ml RA : 30.6 ml/m2 LA vol index: 38.1 ml/m2 IVC diam: 1.5 cm Doppler Measurements & Calculations Ao V2 max: 123.0 cm/sec LVOT Max Nam: 108.5 cm/sec Ao V2 mean: 93.7 cm/sec LV V1 max P.7 mmHg Ao max P.1 mmHg LV V1 VTI: 24.7 cm Ao mean P.7 mmHg BETTE(I,D): 2.7 cm2 Ao V2 VTI: 29.1 cm BETTE(V,D): 2.8 cm2 sev ratio: 0.85 BETTE indexed to BSA (cm^2/m^2): 1.4 MV E max nam: 74.9 cm/sec TR max nam: 282.3 cm/sec MV A max nam: 104.9 cm/sec TR max P.9 mmHg MV E/A: 0.71 PA V2 max: 96.2 cm/sec Med Peak E' Nam: 4.9 cm/sec PA V2 mean: 73.3 cm/sec E/E' med: 15.4 PA mean P.3 mmHg Lat Peak E' Nam: 5.3 cm/sec PA pr(Accel): 49.1 mmHg E/E' lat: 14.2 PA Accel Time: 0.07 sec E/e' average: 14.8 MV dec time: 0.14 sec SV(LVOT): 77.6 ml Reading Physician:04:30 PM
[2019-04-13 14:37] LABS: Add Manual Diff / Slide Review NO; Basophils Absolute Auto 100 /uL (0-100); Basophils Percent Auto 0.7 % (0-2); Eosinophils Absolute Auto 200 /uL (0-450); Eosinophils Percent Auto 2.5 % (2-4); Hematocrit 37.7 % (36-46); Hemoglobin 12.6 g/dL (12.0-16.0); Lymphocytes Absolute Auto 1900 /uL (1100-4500); Lymphocytes Percent Auto 21.4 % (25-40); Mean Corpuscular HGB Conc 33.4 % (30-36); Mean Corpuscular Hemoglobin 28.3 PG (26-34); Mean Corpuscular Volume 84.8 fL (80-100); Monocytes Absolute Auto 900 /uL (0-900); Monocytes Percent Auto 10.1 % (3-14); Neutrophils Absolute Auto 5800 /uL (1500-7000); Neutrophils Percent Auto 65.3 % (50-75); Platelet Count 321 X10^3/uL (150-400); Red Blood Cell Count 4.45 X10^6/uL (4.0-5.2); Red Cell Distribution Width 14.7 % (11.6-14.8); White Blood Cell Count 8.9 X10^3/uL (4.5-11.0)
[2019-04-13 14:55] LABS: Blood Urea Nitrogen 15 mg/dL (7-17); Calcium 9.4 mg/dL (8.4-10.2); Carbon Dioxide 26 mmol/L (22-32); Chloride 97 mmol/L (98-107); Estimated Glomerular Filt Rate > 60.0 mL/min (>60); Glucose 108 mg/dL (80-110); HEMOLYSIS < 15 (0-50); Sodium 135 mmol/L (137-145)
== END ==
PROVIDERS: Family Provider Family Medicine; PCP Family Medicine; Visit Provider Internal Medicine Cardiovascular Disease
DX: I07.1 Rheumatic tricuspid insufficiency (principal); I48.91 Unspecified atrial fibrillation; I10 Essential (primary) hypertension; Z95.0 Presence of cardiac pacemaker
CPT/HCPCS: 36415; 80048; 85025; 93306

== ENCOUNTER → 2019-06-14 12:00 | Outpatient (CLI) | payer OTHER, SELFPAY ==
[2019-06-14 13:12] LABS: Add Manual Diff / Slide Review NO; Basophils Absolute Auto 100 /uL (0-100); Basophils Percent Auto 0.6 % (0-2); Eosinophils Absolute Auto 300 /uL (0-450); Eosinophils Percent Auto 2.7 % (2-4); Hematocrit 39.1 % (36-46); Hemoglobin 13.3 g/dL (12.0-16.0); Lymphocytes Absolute Auto 1900 /uL (1100-4500); Lymphocytes Percent Auto 20.1 % (25-40); Mean Corpuscular Volume 85.2 fL (80-100); Monocytes Absolute Auto 900 /uL (0-900); Monocytes Percent Auto 9.5 % (3-14); Neutrophils Absolute Auto 6400 /uL (1500-7000); Neutrophils Percent Auto 67.1 % (50-75); Platelet Count 258 X10^3/uL (150-400); Red Blood Cell Count 4.59 X10^6/uL (4.0-5.2); Red Cell Distribution Width 15.1 % (11.6-14.8); White Blood Cell Count 9.5 X10^3/uL (4.5-11.0)
[2019-06-14 13:40] LABS: Alanine Aminotransferase 25 IU/L (9-52); Albumin 4.3 g/dL (3.5-5.0); Albumin Globulin Ratio 1.5 (1.0-2.8); Alkaline Phosphatase 67 U/L (38-126); Aspartate Aminotransferase 26 IU/L (14-36); BUN Creatinine Ratio 21.4 (6-22); Bilirubin Total 0.4 mg/dL (0.2-1.3); Blood Urea Nitrogen 15 mg/dL (7-17); Calcium 9.6 mg/dL (8.4-10.2); Carbon Dioxide 24 mmol/L (22-32); Chloride 104 mmol/L (98-107); Estimated Glomerular Filt Rate > 60.0 mL/min (>60); Globulin 2.8 g/dL (1.7-4.1); Glucose 107 mg/dL (80-110); HEMOLYSIS < 15 (0-50); Potassium 4.2 mmol/L (3.4-5.1); Sodium 140 mmol/L (137-145); Total Protein 7.1 g/dL (6.3-8.2)
[2019-06-14 14:10] LABS: Thyroid Stimulating Hormone 1.08 uIU/mL (0.47-4.68)
[2019-06-16 22:05] LABS: Alpha 1 Globulin 0.3 g/dL (0.2-0.3); Alpha 2 Globulin 0.7 g/dL (0.5-0.9); Beta 1 Globulin 0.4 g/dL (0.4-0.6); Protein, Total 6.8 g/dL (6.1-8.1)
[2019-06-18 15:54] LABS: Albumin 100 %; Protein/ Creatinine Ratio 185 mg/g creat (21-161); Total Urine Protein 4 mg/dL (5-24); Urine Creatinine, Random 22 mg/dL (20-275)
== END ==
PROVIDERS: PCP Family Medicine; Visit Provider Dermatology
DX: L50.8 Other urticaria (principal)
CPT/HCPCS: 36415; 80053; 84155; 84156; 84165; 84166; 84443; 85025

== ENCOUNTER → 2019-06-19 13:42 | Outpatient (CLI) | payer OTHER, SELFPAY ==
--- NOTE | 2019-06-19 | DI.RAD.S_ITS ---
PROCEDURE: XR CHEST 2V INDICATIONS: Idiopathic urticaria TECHNIQUE: 2 views of the chest were acquired. COMPARISON: [facility], CR, XR CHEST 2 VIEWS, 09/08/2017, 6:36. FINDINGS: Surgical changes and devices: None. Lungs and pleura: There are bibasilar scars/atelectasis. No pleural effusions or pneumothorax. Mediastinum: Mediastinal contours are normal. Heart size is normal. Bones and chest wall: No suspicious bony abnormalities. Soft tissues appear unremarkable. IMPRESSION: No acute cardiopulmonary disease. Dictated by: Eros Eaton M.D. on 06/19/2019 at 16:49 Approved by: Eros Eaton M.D. on 06/19/2019 at 16:51
== END ==
PROVIDERS: PCP Family Medicine; Visit Provider Dermatology
DX: L50.1 Idiopathic urticaria (principal)
CPT/HCPCS: 71046

== ENCOUNTER → 2019-09-08 12:24 | Outpatient (CLI) | payer OTHER, SELFPAY ==
--- NOTE | 2019-09-08 | DI.MG.S_ITS ---
BILATERAL DIGITAL SCREENING MAMMOGRAM 3D/2D WITH CAD: 09/08/2019 CLINICAL: Routine screening. Family history of breast cancer. Comparison is made to exams dated: 08/25/2018 mammogram, 04/29/2017 mammogram, and 04/14/2016 mammogram - [facility]. The tissue of both breasts is heterogeneously dense. This may lower the sensitivity of mammography. Current study was also evaluated with a Computer Aided Detection (CAD) system. No significant masses, calcifications, or other findings are seen in either breast. There has been no significant interval change. IMPRESSION: NEGATIVE There is no mammographic evidence of malignancy. A 1 year screening mammogram is recommended. This exam was interpreted at Station ID: [id number]. NOTE: For mammograms, a report in lay terms will be sent to the patient. Approximately 15% of breast malignancies will not be visualized mammographically. In the management of a palpable breast mass, a negative mammogram must not discourage biopsy of a clinically suspicious lesion. Electronically Signed By: Jon santillan/chas:09/10/2019 08:31:15 letter sent: Normal Exam ACR BI-RADS Category 1: Negative [id number]
== END ==
PROVIDERS: PCP Family Medicine; Visit Provider Family Medicine
DX: Z12.31 Encounter for screening mammogram for malignant neoplasm of breast (principal); Z80.3 Family history of malignant neoplasm of breast
CPT/HCPCS: 77063; 77067

== ENCOUNTER → 2020-02-18 07:16 | Outpatient (CLI) | payer OTHER, SELFPAY ==
[2020-02-18 08:04] LABS: BUN Creatinine Ratio 23.3 (6-22); Blood Urea Nitrogen 17 mg/dL (7-17); Calcium 9.5 mg/dL (8.4-10.2); Carbon Dioxide 29 mmol/L (22-32); Chloride 95 mmol/L (98-107); Estimated Glomerular Filt Rate > 60.0 mL/min (>60); Glucose 104 mg/dL (80-110); HEMOLYSIS < 15 (0-50); Potassium 3.3 mmol/L (3.4-5.1); Sodium 132 mmol/L (137-145)
== END ==
PROVIDERS: PCP Family Medicine; Referring Provider Family Medicine; Visit Provider Family Medicine
DX: I10 Essential (primary) hypertension (principal); R60.0 Localized edema
CPT/HCPCS: 36415; 80048

== ENCOUNTER → 2020-03-18 08:02 | Outpatient (CLI) | payer OTHER, SELFPAY ==
[2020-03-18 08:34] LABS: BUN Creatinine Ratio 18.1 (6-22); Blood Urea Nitrogen 13 mg/dL (7-17); Calcium 9.7 mg/dL (8.4-10.2); Carbon Dioxide 28 mmol/L (22-32); Chloride 97 mmol/L (98-107); Estimated Glomerular Filt Rate > 60.0 mL/min (>60); Glucose 105 mg/dL (80-110); HEMOLYSIS 20 (0-50); Potassium 3.5 mmol/L (3.4-5.1); Sodium 134 mmol/L (137-145)
== END ==
PROVIDERS: PCP Family Medicine; Referring Provider Family Medicine; Visit Provider Family Medicine
DX: E87.1 Hypo-osmolality and hyponatremia (principal); E87.6 Hypokalemia
CPT/HCPCS: 36415; 80048

== ENCOUNTER → 2020-03-27 13:25 | Outpatient (CLI) | payer OTHER, SELFPAY ==
--- NOTE | 2020-03-27 13:26 | DI.CT.S_ITS ---
PROCEDURE: CT LUMBAR SPINE WO CON INDICATIONS: Chronic progressive low back pain TECHNIQUE: Noncontrast 3 mm thick sections acquired from the T12 level to the sacrum. Sagittal and coronal reformats were constructed. For radiation dose reduction, the following was used: automated exposure control. COMPARISON: [facility], CR, XR LUMBAR SPINE MIN 4V, 03/27/2020, 13:25. [facility], CR, XR CHEST 2V, 06/19/2019, 15:06. FINDINGS: Image quality: Excellent. Bones: There is normal bony alignment. No acute vertebral body compression fractures. No suspicious lytic or blastic bony lesions. Central spinal caliber is of normal overall caliber. No pars defects. T12-L1: Mild degenerative disc disease, no spinal or foraminal stenosis. L1-L2: Mild degenerative disc height reduction, no significant spinal or foraminal stenosis L2-L3: Mild degenerative disc height reduction, no significant spinal or foraminal stenosis. L3-L4: Mild to moderate degenerative disc height reduction, slight posterior disc bulge. Mild to moderate facet osteoarthritis. Mild symmetric foraminal stenosis. L4-L5: Moderately severe degenerative disc height reduction, with near ibrg-[id number] articulation at L4-L5 between the adjacent endplates. Moderate facet osteoarthritis, mild spinal and moderate foraminal stenosis bilaterally.. L5-S1: Mild foraminal stenosis, no significant degenerative disc disease. No significant spinal stenosis. Soft tissues: No retroperitoneal masses or hematomas. Visualized aorta is normal in caliber. IMPRESSION: Relatively mild degenerative changes along the LS spine except at L3-4 and L4-5. There is mild to moderate spinal and foraminal stenosis as discussed best seen at L4-L5. No trauma found. No significant subluxation identified. Dictated by: Blake Wick M.D. on 03/27/2020 at 16:38 Approved by: Blake Wick M.D. on 03/27/2020 at 17:00
--- NOTE | 2020-03-27 13:27 | DI.RAD.S_ITS ---
PROCEDURE: XR LUMBAR SPINE MIN 4V INDICATIONS: Chronic progressive low back pain TECHNIQUE: 5 views of the lumbar spine were acquired. COMPARISON: [facility], , L-SPINE 2-3 VIEWS, 05/10/2017, 10:43. FINDINGS: Bones: 5 nonrib-bearing vertebrae are present. There is normal bony alignment. No vertebral body compression fractures. No suspicious bony lesions. There is a odyt-ky-zwkkrgqz degree of degenerative disc height reduction from L3 through L5, with facet osteoarthritis most pronounced at L4-L5 and only mild in severity more superiorly. Soft tissues: Overlying bowel gas pattern is normal. No suspicious soft tissue calcifications. Oblique images: No pars defects. IMPRESSION: The degenerative disc disease and facet osteoarthritis is moderately severe at L4-L5 and kcjz-[id number] at above and below this level. No trauma found, no subluxation present.. Dictated by: Blake Wick M.D. on 03/27/2020 at 14:30 Approved by: Blake Wick M.D. on 03/27/2020 at 14:33
== END ==
PROVIDERS: PCP Family Medicine; Referring Provider Family Medicine; Visit Provider Physical Medicine & Rehabilitation
DX: M54.5 Low back pain (principal); M47.816 Spondylosis without myelopathy or radiculopathy, lumbar region; M48.061 Spinal stenosis, lumbar region without neurogenic claudication; G89.29 Other chronic pain
CPT/HCPCS: 72110; 72131

== ENCOUNTER → 2020-04-29 07:07 | Outpatient (CLI) | payer OTHER, SELFPAY ==
[2020-04-29 08:42] LABS: Add Manual Diff / Slide Review NO; Basophils Absolute Auto 0 /uL (0-100); Basophils Percent Auto 0.5 % (0-2); Eosinophils Absolute Auto 400 /uL (0-450); Eosinophils Percent Auto 4.5 % (2-4); Hemoglobin 12.3 g/dL (12.0-16.0); Lymphocytes Absolute Auto 2300 /uL (1100-4500); Lymphocytes Percent Auto 25.8 % (25-40); Mean Corpuscular HGB Conc 34.2 % (30-36); Mean Corpuscular Hemoglobin 28.6 PG (26-34); Mean Corpuscular Volume 83.7 fL (80-100); Monocytes Absolute Auto 900 /uL (0-900); Monocytes Percent Auto 10.4 % (3-14); Neutrophils Absolute Auto 5200 /uL (1500-7000); Neutrophils Percent Auto 58.8 % (50-75); Platelet Count 293 X10^3/uL (150-400); Red Cell Distribution Width 14.7 % (11.6-14.8); White Blood Cell Count 8.9 X10^3/uL (4.5-11.0)
[2020-04-29 08:57] LABS: BUN Creatinine Ratio 15.1 (6-22); Blood Urea Nitrogen 11 mg/dL (7-17); Calcium 9.1 mg/dL (8.4-10.2); Carbon Dioxide 31 mmol/L (22-32); Chloride 97 mmol/L (98-107); Cholesterol 159 mg/dL (140-199); Estimated Glomerular Filt Rate > 60.0 mL/min (>60); Glucose 103 mg/dL (80-110); HDL Cholesterol 56 mg/dL (40-60); HEMOLYSIS < 15 (0-50); LDL Cholesterol Calculated 75 mg/dL (<100); Potassium 2.9 mmol/L (3.4-5.1); Sodium 136 mmol/L (137-145); Triglycerides 138 mg/dL (35-150)
--- NOTE | 2020-04-29 15:09 | DI.ECHO.S_ITS ---
Echocardiogram Report + + :Name: JUAN MANUEL RIZO Study Date: 04/29/2020 Height: 64 in : :[facility] Weight: 193 lb : : Gender: Female BSA: 1.9 m2 : :: 1935 Age: 84 yrs BP: 161/85 mmHg: :Reason For Study: DYSPNEA : :Ordering Physician: Brandy Reed : :Nabil Performed By: Arina Burks : :Referring: Brandy Ferrer : + + Interpretation Summary 1) Normal left ventricular thickness, size, and systolic function (EF 60-65%). 2) Apical wall motion abnormality may reflect pacemaker activation. 3) Normal right ventricular size and function. Pacemaker lead visualized in the right ventricle. 4) The right ventricular systolic pressure is estimated to be at least 30 mmHg based on an estimated right atrial pressure of 3 mm Hg. 5) Hypertension present during the study (BP 161/85mmHg). 7) Compared to the Echo done 04/13/2019, no significant change. Procedure: A two-dimensional transthoracic echocardiogram with color flow and Doppler was performed. The study quality was technically adequate. Comparison is made with the echocardiogram of 04/13/2019. Images from the parasternal window were difficult to obtain and are suboptimal in quality. The patient has a paced rhythm. Left Ventricle: The left ventricle is normal in size and wall thickness. The ejection fraction is estimated to be 60-65%. Left ventricular systolic function is normal. Apical wall motion abnormality may reflect pacemaker activation. Diastolic function could not be accurately assessed due to paced rhythm. Right Ventricle: The right ventricle is normal in size and function. There is a pacemaker lead in the right ventricle. Atria: Both atria are normal in size. There is no Doppler evidence for an interatrial shunt. Mitral Valve: There is mild to moderate mitral annular calcification. There is trace mitral regurgitation. Aortic Valve: The aortic valve is trileaflet. The aortic valve opens well. There is no aortic valve stenosis. No aortic regurgitation is present. Tricuspid Valve: The tricuspid valve is normal in structure and function. There is mild tricuspid regurgitation. The right ventricular systolic pressure is estimated to be at least 30 mmHg based on an estimated right atrial pressure of 3 mm Hg. Pulmonic Valve: The pulmonic valve is not well visualized. There is no pulmonic valvular regurgitation. Great Vessels: The aortic root is normal size. The ascending aorta could not be visualized. The IVC is of normal diameter and collapses greater than 50% with a sniff. This suggests a low right atrial pressure of 3 mm Hg. Pericardium/ Pleura There is no pericardial effusion. There is no pleural effusion. MMode/2D Measurements & Calculations LVIDd: 3.7 cm LVOT diam: 2.1 cm LVIDs: 2.5 cm Ao root diam: 3.4 cm FS: 33.1 % IVSd: 1.1 cm LVPWd: 0.73 cm LV pascual. diameter/BSA (cm/m^2): 1.9 LV sys. diameter/BSA (cm/m^2): 1.3 LA A2 area: 21.9 cm2 RA long axis: 4.5 cm LA A4 area: 16.2 cm2 RA area: 17.1 cm2 LA length (vol): 5.2 cm RA vol: 55.0 ml LA vol: 58.0 ml RA : 28.6 ml/m2 LA vol index: 30.1 ml/m2 IVC diam: 1.5 cm RVD1 (basal): 4.0 cm TAPSE: 2.9 cm Doppler Measurements & Calculations Ao V2 max: 147.8 cm/sec LVOT Max Nam: 124.6 cm/sec Ao V2 mean: 89.2 cm/sec LV V1 max P.2 mmHg Ao max P.7 mmHg LV V1 VTI: 24.2 cm Ao mean P.0 mmHg BETTE(I,D): 2.9 cm2 Ao V2 VTI: 28.8 cm BETTE(V,D): 2.9 cm2 sev ratio: 0.84 BETTE indexed to BSA (cm^2/m^2): 1.5 MV E max nam: 77.2 cm/sec TR max nam: 261.3 cm/sec MV A max nam: 101.4 cm/sec TR max P.3 mmHg MV E/A: 0.76 PA V2 max: 103.9 cm/sec Med Peak E' Nam: 5.6 cm/sec PA V2 mean: 64.2 cm/sec E/E' med: 13.8 PA mean P.0 mmHg Lat Peak E' Nam: 6.6 cm/sec PA pr(Accel): 55.0 mmHg E/E' lat: 11.7 E/e' average: 12.8 MV dec time: 0.24 sec SV(LVOT): 83.0 ml Reading Physician:06:07 PM
== END ==
PROVIDERS: PCP Family Medicine; Referring Provider Internal Medicine Cardiovascular Disease; Visit Provider Internal Medicine Cardiovascular Disease
DX: I07.1 Rheumatic tricuspid insufficiency (principal); R06.09 Other forms of dyspnea
CPT/HCPCS: 36415; 80048; 80061; 85025; 93306

== ENCOUNTER → 2020-05-10 08:09 | Outpatient (CLI) | payer OTHER, SELFPAY ==
[2020-05-10 09:44] LABS: BUN Creatinine Ratio 16.2 (6-22); Blood Urea Nitrogen 12 mg/dL (7-17); Calcium 9.4 mg/dL (8.4-10.2); Carbon Dioxide 25 mmol/L (22-32); Chloride 103 mmol/L (98-107); Estimated Glomerular Filt Rate > 60.0 mL/min (>60); Glucose 96 mg/dL (80-110); HEMOLYSIS < 15 (0-50); Potassium 4.5 mmol/L (3.4-5.1); Sodium 135 mmol/L (137-145)
== END ==
PROVIDERS: PCP Family Medicine; Referring Provider Internal Medicine Cardiovascular Disease; Visit Provider Internal Medicine Cardiovascular Disease
DX: I10 Essential (primary) hypertension (principal)
CPT/HCPCS: 36415; 80048; 82088; 84244

== ENCOUNTER 2020-06-02 20:57 | Inpatient (IN) | payer OTHER, SELFPAY ==
[2020-06-02] VITALS (11 sets, daily range): BP systolic 93–127; BP diastolic 45–58; PULSE 80–111; RESP 24; TEMP 37.1; O2SAT 91–95
--- NOTE | 2020-06-02 21:03 | DI.RAD.S_ITS ---
PROCEDURE: XR CHEST 1V INDICATIONS: SOB TECHNIQUE: One view of the chest was acquired. COMPARISON: [facility], CR, XR CHEST 2V, 06/19/2019, 15:06. FINDINGS: Surgical changes and devices: Left chest wall dual lead cardiac pacer is stable. Lungs and pleura: Lungs are clear. No pleural effusions or pneumothorax. Mediastinum: Mediastinal contours appear normal. Heart size is normal. Bones and chest wall: No suspicious bony lesions. Overlying soft tissues appear unremarkable. IMPRESSION: No acute cardiopulmonary disease process. Dictated by: Sepideh Vega MD, PhD on 06/03/2020 at 8:12 Approved by: Sepideh Vega MD, PhD on 06/03/2020 at 8:12
[2020-06-02 21:27] LABS: Add Manual Diff / Slide Review NO; Basophils Absolute Auto 100 /uL (0-100); Basophils Percent Auto 0.6 % (0-2); Eosinophils Absolute Auto 300 /uL (0-450); Eosinophils Percent Auto 2.1 % (2-4); Hematocrit 35.4 % (36-46); Hemoglobin 12.2 g/dL (12.0-16.0); Lymphocytes Absolute Auto 700 /uL (1100-4500); Lymphocytes Percent Auto 5.4 % (25-40); Mean Corpuscular HGB Conc 34.4 % (30-36); Mean Corpuscular Hemoglobin 28.6 PG (26-34); Mean Corpuscular Volume 83.2 fL (80-100); Monocytes Absolute Auto 1200 /uL (0-900); Monocytes Percent Auto 9.2 % (3-14); Neutrophils Absolute Auto 11200 /uL (1500-7000); Neutrophils Percent Auto 82.7 % (50-75); Platelet Count 224 X10^3/uL (150-400); Red Blood Cell Count 4.25 X10^6/uL (4.0-5.2); Red Cell Distribution Width 14.4 % (11.6-14.8); White Blood Cell Count 13.6 X10^3/uL (4.5-11.0)
[2020-06-02 21:40] LABS: Alanine Aminotransferase 182 IU/L (<35); Albumin Globulin Ratio 1.1 (1.0-2.8); Alkaline Phosphatase 280 U/L (38-126); Aspartate Aminotransferase 93 IU/L (14-36); BUN Creatinine Ratio 14.6 (6-22); Bilirubin Total 1.3 mg/dL (0.2-1.3); Blood Urea Nitrogen 14 mg/dL (7-17); Calcium 8.4 mg/dL (8.4-10.2); Carbon Dioxide 24 mmol/L (22-32); Chloride 87 mmol/L (98-107); Creatine Kinase 235 U/L (30-135); Estimated Glomerular Filt Rate 55.6 mL/min (>60); Globulin 3.5 g/dL (1.7-4.1); Glucose 130 mg/dL (80-110); HEMOLYSIS < 15 (0-50); Potassium 3.3 mmol/L (3.4-5.1); Sodium 120 mmol/L (137-145); Total Protein 7.5 g/dL (6.3-8.2)
[2020-06-02 21:51] LABS: NT-proBNP (BNP-Adult 18+) 2620 pg/mL (<450); Troponin I 0.119 ng/mL (0.01-0.034)
[2020-06-02 21:55] LABS: CKMB % Relative Index 1.3 % (1.5-5.0); Creatine Kinase MB 2.94 ng/mL (<2.37)
--- NOTE | 2020-06-02 21:57 | ED_ITS ---
HPI - SOB/Dyspnea General Chief Complaint: Shortness of Breath/Dyspnea Stated Complaint: WEAKNESS SOB Time Seen by Provider: 06/02/20 21:00 Source: patient and family Mode of arrival: Ambulatory Limitations: no limitations History of Present Illness HPI Narrative: 84-year-old female former smoker with history of COPD on home oxygen(2-4L), hypertension, hyperlipidemia and CHF presents with her and a chief complaint of 3 days of increasing shortness of breath and weakness. She denies any change in medication or diet. She states she has not left her house since November and has not been exposed any persons with known COVID. She becomes more short of breath with exertion and with laying flat. She denies any cough productive of sputum. She denies any runny nose, sneezing or sore throat. She has no headache or neck pain. She denies any nausea, vomiting or diarrhea. She denies any weight gain or swelling of her legs. She has bumped her oxygen up to 3L at home. MD Complaint: shortness of breath Onset (ago): day(s) Context: occurred during exertion Severity: moderate Consistency/Duration: constant Relieving factors: rest Exacerbating factors: lying flat and exertion Known history of: COPD and congestive heart failure Associated symptoms: denies other symptoms Treatment prior to arrival: oxygen Related Data Home oxygen amount: 2 liters Home Medications Medication Instructions Recorded Confirmed [SUPER B COMPLEX] #0 06/24/17 04/23/20 [VISION FORMULA] #0 06/24/17 04/23/20 folic acid 400 mcg #0 06/24/17 04/23/20 multivitamin [Multiple Vitamins] 1 tab PO QDAY #0 06/24/17 06/03/20 cholecalciferol (vitamin D3) 50 2,000 unit PO DAILY 12/15/18 06/03/20 mcg (2,000 unit) capsule magnesium 250 mg tablet 250 mg PO DAILY 12/15/18 06/03/20 rosuvastatin 10 mg tablet 10 mg PO DAILY 12/15/18 06/03/20 Resmed Airsense 10 CPAP #1 ea 02/13/19 06/03/20 loratadine 10 mg disintegrating 10 mg PO DAILY 06/01/19 06/03/20 tablet dabigatran etexilate 150 mg capsule 150 mg PO BID 09/20/19 06/03/20 felodipine 10 mg tablet,extended 10 mg PO DAILY 04/04/20 06/03/20 release 24 hr furosemide 20 mg tablet 20 mg PO DAILY 04/04/20 06/03/20 hydrochlorothiazide 50 mg tablet 50 mg PO DAILY 04/04/20 06/03/20 Previous Rx's Medication Instructions Recorded Spacer: Inhaler Spacer Device ea PO BID #1 06/06/17 inhalational spacing device #1 each 01/05/19 levothyroxine 125 mcg tablet 125 mcg PO QDAY #90 tab 06/27/19 losartan 100 mg tablet 100 mg PO DAILY #90 tab 09/19/19 levalbuterol tartrate 45 1 puff INHALATION Q6HP PRN #15 gm 12/10/19 mcg/actuation aerosol inhaler salmeterol 50 mcg/dose blister See Rx Instructions .ROUTE 02/11/20 powder for inhalation .COMPLEX #60 unspecified phenobarbital 64.8 mg tablet 64.8 mg PO HS #90 tab 03/31/20 clonazepam 2 mg tablet 2 mg PO BEDTIME #90 tab 04/21/20 tiotropium bromide 2.5 See Rx Instructions .ROUTE 05/01/20 mcg/actuation mist for inhalation .COMPLEX #4 gram Allergies Allergy/AdvReac Type Severity Reaction Status Date / Time atenolol [ATENOLOL] Allergy Mild COUGH Verified 04/23/20 15:25 phenindamine [PHENINDAMINE] Allergy Unknown Verified 04/23/20 15:25 pseudoephedrine Allergy Unknown Verified 04/23/20 15:25 [PSEUDOEPHEDRINE] caffeine AdvReac Intermediate panic Verified 04/23/20 15:25 attacks amlodipine AdvReac Mild dizzy Verified 04/23/20 15:25 lisinopril AdvReac Mild cough Verified 04/23/20 15:25 terazosin AdvReac Mild dizzy Verified 04/23/20 15:25 verapamil AdvReac Mild dizzy Verified 04/23/20 15:25 alendronate sodium AdvReac Verified 04/23/20 15:25 [From Fosamax] fexofenadine AdvReac Verified 04/23/20 15:25 cetirizine AdvReac Uncoded 02/25/20 16:05 terazosin AdvReac Uncoded 02/25/20 16:05 Review of Systems Constitutional Constitutional: Denies chills, Denies fatigue, Denies fever(s), Denies frequent falls, Denies lethargy and Denies weakness Eyes Eyes: Denies change in vision, Denies eye discharge, Denies irritation and Denies loss of vision ENT Ears, Nose, Mouth, and Throat: Denies change in voice, Denies dizziness, Denies neck pain, Denies sore throat and Denies throat swelling Cardiovascular Cardiovascular: Denies chest pain, Denies irregular heart rhythm, Denies lightheadedness, Denies palpitations, Reports dyspnea, Denies dyspnea on exertion and Denies orthopnea Respiratory Respiratory: Reports cough, Reports dyspnea, Denies dyspnea on exertion and Denies wheezing Gastrointestinal Gastrointestinal: Denies abdominal pain, Denies change in bowel habits, Denies diarrhea, Denies nausea and Denies vomiting Musculoskeletal Musculoskeletal: Denies neck pain and Denies numbness Integumentary/Breasts Skin/Breast: Denies pruritus, Denies erythema, Denies rash and Denies wounds Neurologic Neurologic: Denies behavioral changes, Denies confusion, Denies dizziness, Denies frequent falls, Denies loss of vision, Denies numbness and Denies weakness Psychiatric Psychiatric: Denies anxiety, Denies behavioral changes, Denies confusion, Denies depression, Denies homicidal ideation and Denies suicidal ideation Endocrine Endocrine: Denies fatigue, Denies flushing and Denies palpitations Hematologic/Lymphatic Hematologic/Lymphatic: Denies easy bruising Allergic/Immunologic Allergic/Immunologic: Denies urticaria, Denies throat swelling and Denies wheezing Patient History Medical History (Updated 06/02/20 @ 23:38 by Jaguar Glaser DO) AAA (abdominal aortic aneurysm) (Chronic) Actinic keratosis (Chronic) Chicken pox (Resolved 1946) Chronic back pain (Chronic 1955) COPD (chronic obstructive pulmonary disease) (Chronic) DVT (deep venous thrombosis) (Resolved) Facet arthropathy, lumbar (Acute) Fracture of left patella (Resolved 2009) Fracture of right wrist (Resolved 2009) Hypertension (Chronic) Hypothyroidism (Chronic) Lumbar stenosis (Acute) Osteoarthritis (Chronic 2009) Osteoporosis (Chronic) Retinal detachment (Resolved 2011) RLS (restless legs syndrome) (Chronic 1959) SCCA (squamous cell carcinoma) of skin (Resolved 2000) Seizures (Chronic 1953) Skin cancer (Resolved 2000) Tinnitus (Chronic) Surgical History Anesthesia (Resolved) History of cataract removal with insertion of prosthetic lens (Resolved 2013) History of left knee surgery (Resolved 2009) History of squamous cell carcinoma excision (Resolved 2000) Status post cholecystectomy (Resolved 2004) Status post wrist surgery (Resolved 2009) Family History Brother Age: 78 Stroke Father Stroke Grandfather Heart disease Grandmother Stroke Mother Mental health problem Grandmother Stroke Grandfather No problems noted. Social History marital status: number of children: 2 household members: spouse lives independently: Yes caregiver/support person: No housing: house Smoking Status: Former smoker second hand exposure: No alcohol intake: never substance use type: does not use Smoking Status: Former smoker alcohol intake frequency: holidays/special occasions only Substance Use Type: does not use Exam Narrative Exam Narrative: GENERAL: [84] year old patient appears stated age. Well- nourished, well-developed patient, in mild distress. HEAD: Atraumatic. Normocephalic. EYES: Pupils equal round and reactive. Extraocular motions intact. No scleral icterus. No injection or drainage. ENT: Nose without bleeding, purulent drainage. Throat without erythema, tonsillar hypertrophy or exudate. Airway patent. NECK: Trachea midline. Non tender CARDIOVASCULAR: Regular rate and rhythm without murmurs, gallops, or rubs. RESPIRATORY: Decreased breath sounds B/L with prolonged expiratory phase, mild bibasilar expiratory wheeze. GASTROINTESTINAL: Abdomen soft, non-tender, nondistended. EXTREMITIES: 1+ pitting edema in B/L LE BACK: Nontender without deformity or crepitance. No flank tenderness. NEURO: AOx3. SKIN: No rash or erythema of visible areas Initial Vital Signs Initial Vital Signs: Vital Signs Temperature 98.7 F 06/02/20 21:03 Pulse Rate 111 H 06/02/20 21:03 Respiratory Rate 24 06/02/20 21:03 Blood Pressure 127/58 L 06/02/20 21:03 Pulse Oximetry 91 06/02/20 21:03 Course Course Course Narrative: 2217 - fluids limited and not given in accordance with Sepsis guidelines given her presentation of fluid overload and CHF. Orders Ordered: ED Orders 06/02/20 21:03 XR chest 1V Stat EKG-12 Lead Stat 06/02/20 21:09 Complete Blood Count AUTO DIFF Stat Comprehensive Metabolic Panel Stat D Dimer Stat NT-proBNP (BNP-Adult 18+) Stat Procalcitonin Stat Prothrombin Time INR Stat Troponin & CK Cardiac Panel Stat 06/02/20 22:15 Troponin I Stat 06/02/20 22:28 CT angio chest PE protocol Stat 06/02/20 22:44 COVID19 -ED/INPAT/OR/L&D Stat Levalbuterol HCl (Xopenex Hfa) 1 puff INH Q6H PRN PRN Reason: shortness of breath Levothyroxine Sodium (Synthroid) 125 mcg PO QACBREAK [facility] Last Admin: 06/03/20 02:00 Dose: Not Given Documented by: YRN Methylprednisolone (Solu-Medrol) 80 mg IV Q8H [facility] Last Admin: 06/03/20 02:12 Dose: 80 mg Documented by: YRN Phenobarbital (Luminal) 64.8 mg PO BEDTIME [facility] Rosuvastatin Calcium (Crestor) 10 mg PO DAILY [facility] Sodium Chloride (Normal Saline 0.9% Flush) 10 ml IV BID [facility] Sodium Chloride (Normal Saline 0.9% Flush) 10 ml IV PRN PRN PRN Reason: Flush Last Admin: 06/03/20 02:13 Dose: 10 ml Documented by: YRN Discontinued Medications Furosemide (Lasix) 40 mg IV NOW ONE Stop: 06/02/20 22:11 Last Admin: 06/02/20 22:19 Dose: 40 mg Documented by: BREEZY Ceftriaxone Sodium/Dextrose (Rocephin) 1 gm in 50 mls @ 100 mls/hr IV NOW ONE Stop: 06/02/20 22:39 Last Infusion: 06/02/20 23:05 Dose: 0 mls/hr Documented by: Admin: 06/02/20 22:19 Dose: 100 mls/hr Documented by: BREEZY Methylprednisolone (Solu-Medrol 125 Mg Vial) 80 mg IV Q8H [facility] Last Admin: 06/03/20 02:20 Dose: Not Given Documented by: YRN Phenobarbital (Luminal) 64.8 mg PO BEDTIME [facility] Phenobarbital (Luminal) 64.8 mg PO BEDTIME [facility] Stop: 06/03/20 01:58 Last Admin: 06/03/20 02:09 Dose: 64.8 mg Documented by: YRN Potassium Chloride (Klor-Con M20) 40 meq PO NOW ONE Stop: 06/03/20 01:30 Last Admin: 06/03/20 02:10 Dose: 40 meq Documented by: YRN Vital Signs Vital signs: Vital Signs - 8 hr 06/02/20 21:03 06/02/20 21:20 06/02/20 21:30 Temperature 98.7 F Pulse Rate 111 H 96 H 95 H Respiratory Rate 24 Blood Pressure 127/58 L Pulse Oximetry 91 94 94 06/02/20 21:31 06/02/20 21:37 06/02/20 22:00 Temperature Pulse Rate 95 H 91 H 92 H Respiratory Rate Blood Pressure 95/45 L 100/50 L 98/52 L Pulse Oximetry 94 94 95 06/02/20 22:25 06/02/20 22:30 06/02/20 22:46 Temperature Pulse Rate 83 83 80 Respiratory Rate Blood Pressure 100/51 L 93/46 L 114/54 L Pulse Oximetry 94 94 95 06/02/20 23:01 06/02/20 23:06 Temperature Pulse Rate 84 85 Respiratory Rate Blood Pressure 112/54 L Pulse Oximetry 95 95 MDM - SOB/Dyspnea Lab Data Result diagrams: 06/02/20 21:09 06/02/20 21:09 Labs: Lab Results 06/02/20 06/02/20 06/02/20 Range/Units 21:09 21:09 21:09 WBC 13.6 H (4.5-11.0) X10^3/uL RBC 4.25 (4.0-5.2) X10^6/uL Hgb 12.2 (12.0-16.0) g/dL Hct 35.4 L (36-46) % MCV 83.2 (80-100) fL MCH 28.6 (26-34) PG MCHC 34.4 (30-36) % RDW 14.4 (11.6-14.8) % Plt Count 224 (150-400) X10^3/uL Neut % (Auto) 82.7 H (50-75) % Lymph % (Auto) 5.4 L (25-40) % [place] % (Auto) 9.2 (3-14) % Eos % (Auto) 2.1 (2-4) % Baso % (Auto) 0.6 (0-2) % Neut # (Auto) 93191 H (9778-4238) /uL Lymph # (Auto) 700 L (7874-6540) /uL [place] # (Auto) 1200 H (0-900) /uL Eos # (Auto) 300 (0-450) /uL Baso # (Auto) 100 (0-100) /uL PT (10.1-12.7) SECONDS INR (0.9-1.3) D-Dimer (<230) ng/mL Sodium 120 L (137-145) mmol/L Potassium 3.3 L (3.4-5.1) mmol/L Chloride 87 L (98-107) mmol/L Carbon Dioxide 24 (22-32) mmol/L BUN 14 (7-17) mg/dL Creatinine 0.96 (0.52-1.04) mg/dL Estimated GFR 55.6 L (>60) mL/min BUN/Creatinine Ratio 14.6 (6-22) Glucose 130 H (80-110) mg/dL Calcium 8.4 (8.4-10.2) mg/dL Total Bilirubin 1.3 (0.2-1.3) mg/dL AST 93 H (14-36) IU/L ALT 182 H (<35) IU/L Alkaline Phosphatase 280 H (38-126) U/L Total Creatine Kinase 235 H (30-135) U/L CK-MB (CK-2) 2.94 H (<2.37) ng/mL CK-MB (CK-2) Rel Index 1.3 L (1.5-5.0) % Troponin I 0.119 H (0.01-0.034) ng/mL NT-Pro-B Natriuret Pep 2620 H (<450) pg/mL Total Protein 7.5 (6.3-8.2) g/dL Albumin 4.0 (3.5-5.0) g/dL Globulin 3.5 (1.7-4.1) g/dL Albumin/Globulin Ratio 1.1 (1.0-2.8) Procalcitonin 0.73 H (<0.5) ng/mL COVID-19 PCR (Negative) 09/21/20 09/21/20 09/21/20 Range/Units 21:09 22:15 22:44 WBC (4.5-11.0) X10^3/uL RBC (4.0-5.2) X10^6/uL Hgb (12.0-16.0) g/dL Hct (36-46) % MCV (80-100) fL MCH (26-34) PG MCHC (30-36) % RDW (11.6-14.8) % Plt Count (150-400) X10^3/uL Neut % (Auto) (50-75) % Lymph % (Auto) (25-40) % [place] % (Auto) (3-14) % Eos % (Auto) (2-4) % Baso % (Auto) (0-2) % Neut # (Auto) (5446-7261) /uL Lymph # (Auto) (7412-8038) /uL [place] # (Auto) (0-900) /uL Eos # (Auto) (0-450) /uL Baso # (Auto) (0-100) /uL PT 18.3 H (10.1-12.7) SECONDS INR 1.6 H (0.9-1.3) D-Dimer 831 H (<230) ng/mL Sodium (137-145) mmol/L Potassium (3.4-5.1) mmol/L Chloride (98-107) mmol/L Carbon Dioxide (22-32) mmol/L BUN (7-17) mg/dL Creatinine (0.52-1.04) mg/dL Estimated GFR (>60) mL/min BUN/Creatinine Ratio (6-22) Glucose (80-110) mg/dL Calcium (8.4-10.2) mg/dL Total Bilirubin (0.2-1.3) mg/dL AST (14-36) IU/L ALT (<35) IU/L Alkaline Phosphatase (38-126) U/L Total Creatine Kinase (30-135) U/L CK-MB (CK-2) (<2.37) ng/mL CK-MB (CK-2) Rel Index (1.5-5.0) % Troponin I 0.124 H* (0.01-0.034) ng/mL NT-Pro-B Natriuret Pep (<450) pg/mL Total Protein (6.3-8.2) g/dL Albumin (3.5-5.0) g/dL Globulin (1.7-4.1) g/dL Albumin/Globulin Ratio (1.0-2.8) Procalcitonin (<0.5) ng/mL COVID-19 PCR Negative (Negative) Imaging Data Chest x-ray: Attestation: I personally reviewed and interpreted this imaging study as follows: My Impression: NAP CT scan - chest: Radiologist's Impression: 1. No PE 2. COPD 3. No pneumonia MDM Narrative Medical decision making narrative: Patient presents with a few days of worsening shortness of breath with minimal exertion. She denies any fever, chills or productive cough but does have elevated white blood cells and procalcitonin raising the suspicion of possible pneumonia. She does have exertional dyspnea, faint crackles in her bases and some pitting edema as well as an elevated BNP raising the suspicion of acute heart failure, recent echo in April suggests an EF of up to 65%. Additionally, she has no ischemic findings on her EKG but does have a slight bump in her troponin, awaiting secondary troponin to trend Discharge Plan Departure Patient Disposition: Admitted As Inpatient Clinical Impression: Acute hyponatremia, Acute hypokalemia, Elevated troponin Discharge Date/Time: 06/03/20 00:47 Referrals: Yris Zaman MD [Primary Care Provider] - Admit Date/Time: 06/03/20 00:24 Admit Provider: Matt Sawyer
[2020-06-02 22:06] LABS: Procalcitonin 0.73 ng/mL (<0.5)
[2020-06-02] MEDS: CEFTRIAXONE 1 GM/50 ML FROZ.PIGGY IV (22:19)
[2020-06-02] MEDS: FUROSEMIDE 40 MG/4 ML VIAL IV (22:19)
[2020-06-02 22:21] LABS: INR 1.6 (0.9-1.3); Prothrombin Time 18.3 SECONDS (10.1-12.7)
[2020-06-02 22:24] LABS: D Dimer 831 ng/mL (<230)
--- NOTE | 2020-06-02 22:28 | DI.CT.S_ITS ---
PROCEDURE: CT ANGIO CHEST PE PROTOCOL INDICATIONS: Shortness of breath, elevated troponin, BNP, DDImer, tachycardia, hypoxia TECHNIQUE: After the administration of intravenous contrast, 2 mm thick sections acquired from the pulmonary apices to the posterior costophrenic angles. 3-dimensional maximum intensity projection (MIP) coronal and sagittal reformats were then acquired through the thorax. For radiation dose reduction, the following was used: automated exposure control, adjustment of mA and/or kV according to patient size. COMPARISON: [facility], CT, PE STUDY (CTA CHEST), 11/25/2015, 11:31. [facility], CR, XR CHEST 1V, 06/02/2020, 21:21. [facility], CT, CT ANGIO CHEST PE PROTOCOL, 08/29/2018, 14:45. FINDINGS: Image quality: Excellent. Pulmonary arteries: Pulmonary arteries are normal in size, and demonstrate no intraluminal filling defects to suggest central pulmonary embolism. Lungs and pleura: There is severe centrilobular emphysema. Bilateral lung nodules are present in lower lobes. [employer] nodules are listed as follows: Nodule 1: 6 mm; RLL; series 5, image 209; new. Nodule 2: 4 mm; RLL series 5, image 178; stable. Nodule 3: 5 mm; RML; series 5, image 202; 6 mm nodule in the right lower lobe 3 mm on 08/29/2018. Nodule 4: 5 mm; LLL; series 5, image 199; stable. For example, there is a A. Both or present on the last exam dated 08/29/2018, and appear unchanged. There is a 5 mm nodule in the right middle lobe (). This nodule demonstrate mild spiculated appearance. No pleural effusions or pneumothorax. Central and peripheral airways are patent. Mediastinum: Heart size is normal. Trace pericardial effusion. There is a 1.4 cm paratracheal lymph and a 1.0 cm AP window lymph node. A 1.2 cm right hilar lymph node is identified. Mildly enlarged subcarinal lymph node measures 1.2 x 2.0 cm. Thoracic aorta is normal in caliber and enhancement. Esophagus is normal in caliber. There is a small hiatal hernia. Bones and chest wall: There is a cardiac pacemaker in the left anterior chest. No suspicious bony lesions. Ribs and thoracic spine appear intact throughout. Thyroid gland is normal . No axillary or supraclavicular adenopathy. Abdomen: Visualized upper abdominal solid organs appear normal in the early arterial phase of enhancement. Liver demonstrates subtle nodular contour. Please correlate with liver enzymes. Mild bilateral adrenal thickening. IMPRESSION: 1. No findings to suggest pulmonary embolism. 2. Moderate centrilobular emphysema. 3. Multiple pulmonary nodules bilaterally. Majority of the nodules are stable. There is a new nodule in the right lower lobe, which demonstrates subtle spiculated appearance. A short-term follow-up CT is recommended in 3 months. 4. Mild mediastinal and right hilar lymphadenopathy, most likely reactive. 5. Small hiatal hernia. Dictated by: Eros Eaton M.D. on 06/03/2020 at 8:05 Approved by: Eros Eaton M.D. on 06/03/2020 at 8:24
[2020-06-02 23:03] LABS: COVID19 -Nasal RAPID Negative (Negative)
[2020-06-03] VITALS (11 sets, daily range): BP systolic 102–142; BP diastolic 43–74; PULSE 47–90; RESP 16–20; TEMP 36.2–36.9; O2SAT 92–96; BMI 31.6
[2020-06-03 00:12] LABS: Troponin I 0.124 ng/mL (0.01-0.034)
[2020-06-03] MEDS: PHENobarbitaL 32.4 MG TABLET 64.8 MG PO ×2 (02:09→20:17)
[2020-06-03] MEDS: POTASSIUM CHLORIDE 20 MEQ TAB 40 MEQ PO (02:10)
[2020-06-03] MEDS: SODIUM CHLORIDE 0.9% FLUSH 10 ML IV ×3 (02:13→19:10)
--- NOTE | 2020-06-03 02:35 | PC.NURSE ---
Pt. admitted to room 217, for exacerbation of CHF & COPD. Oriented to her room & showed how to use her call lgiht & bed, TV controls. Denies any CP & dyspnea at rest upon admit. 2 liters 02 via her own CPAP & SPO2 95%. Lung sounds no wheezing or crackles noted @ this time. But diminish lung sounds throughout all smith. Instructed to call nursing staff if she needed to get OOB to the [facility] or BR. Call light within reach, will cont. POC & monitor.
[2020-06-03 05:59] LABS: BUN Creatinine Ratio 15.6 (6-22); Blood Urea Nitrogen 15 mg/dL (7-17); Calcium 8.1 mg/dL (8.4-10.2); Carbon Dioxide 29 mmol/L (22-32); Chloride 87 mmol/L (98-107); Estimated Glomerular Filt Rate 55.6 mL/min (>60); Glucose 132 mg/dL (80-110); HEMOLYSIS < 15 (0-50); Potassium 3.8 mmol/L (3.4-5.1); Sodium 122 mmol/L (137-145)
[2020-06-03 06:08] LABS: NT-proBNP (BNP-Adult 18+) 2980 pg/mL (<450)
--- NOTE | 2020-06-03 08:10 | P.HP_ITS ---
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 The pt reports that pro gressively throughout the entire summer she has been feeling more SOB. She has been using oxygen at home when sleeping with her CPAP machine for the past 3-4 months, previously never needing it. She is now up to 3L of oxygen at night. She has been unable to sleep due to feeling significant SOB when trying to lay down. She denies any significant cough, and states that she does wheeze occasionally but not all that often. She denies any recent chest pain or abdominal pain. She does feel that for the past several months the swelling in her legs has been worsening. The pts brought her to the ED yesterday due to her being significantly more weak than usual at home, and unable to walk well. The pt denies any sudden acute worsening of her SOB. Patient History Medical History (Updated 06/02/20 @ 23:38 by Jaguar Glaser DO) AAA (abdominal aortic aneurysm) (Chronic) Actinic keratosis (Chronic) Chicken pox (Resolved 194) Chronic back pain (Chronic 1955) COPD (chronic obstructive pulmonary disease) (Chronic) DVT (deep venous thrombosis) (Resolved) Facet arthropathy, lumbar (Acute) Fracture of left patella (Resolved 2009) Fracture of right wrist (Resolved 2009) Hypertension (Chronic) Hypothyroidism (Chronic) Lumbar stenosis (Acute) Osteoarthritis (Chronic 2009) Osteoporosis (Chronic) Retinal detachment (Resolved 2011) RLS (restless legs syndrome) (Chronic 1959) SCCA (squamous cell carcinoma) of skin (Resolved 2000) Seizures (Chronic 1953) Skin cancer (Resolved 2000) Tinnitus (Chronic) Surgical History Anesthesia (Resolved) History of cataract removal with insertion of prosthetic lens (Resolved 2013) History of left knee surgery (Resolved 2009) History of squamous cell carcinoma excision (Resolved 2000) Status post cholecystectomy (Resolved 2004) Status post wrist surgery (Resolved 2009) Family & Social History Family History Brother Age: 78 Stroke Father Stroke Grandfather Heart disease Grandmother Stroke Mother Mental health problem Grandmother Stroke Grandfather No problems noted. Social History: household members spouse Prior Living Arrangements House lives independently Yes caregiver/support person No Safety & Behavioral: Feels Safe in Current Yes Environment Been Physically Hurt or No Threatened By a Person Suicidal Ideation Description None Suicide Plan Description No Plan Tobacco & Substance use: Smoking Status Former smoker alcohol intake never alcohol intake frequency holiday/special occasion Substance Use Type does not use Meds Home Medications and Allergies Home Medications Medication Instructions Recorded Confirmed Type Spacer: Inhaler Spacer Device ea PO BID #1 06/06/17 04/23/20 Rx [SUPER B COMPLEX] #0 06/24/17 04/23/20 History [VISION FORMULA] #0 06/24/17 04/23/20 History folic acid 400 mcg #0 06/24/17 04/23/20 History multivitamin [Multiple Vitamins] 1 tab PO QDAY #0 06/24/17 06/03/20 History cholecalciferol (vitamin D3) 50 2,000 unit PO DAILY 12/15/18 06/03/20 History mcg (2,000 unit) capsule magnesium 250 mg tablet 250 mg PO DAILY 12/15/18 06/03/20 History rosuvastatin 10 mg tablet 10 mg PO DAILY 12/15/18 06/03/20 History inhalational spacing device #1 each 01/05/19 06/03/20 Rx Resmed Airsense 10 CPAP #1 ea 02/13/19 06/03/20 History loratadine 10 mg disintegrating 10 mg PO DAILY 06/01/19 06/03/20 History tablet dabigatran etexilate 150 mg capsule 150 mg PO BID 09/20/19 06/03/20 History levalbuterol tartrate 45 1 puff INHALATION Q6HP PRN #15 gm 12/10/19 06/03/20 Rx mcg/actuation aerosol inhaler salmeterol 50 mcg/dose blister See Rx Instructions .ROUTE 02/11/20 06/03/20 Rx powder for inhalation .COMPLEX #60 unspecified phenobarbital 64.8 mg tablet 64.8 mg PO HS #90 tab 03/31/20 06/03/20 Rx felodipine 10 mg tablet,extended 10 mg PO DAILY 04/04/20 06/03/20 History release 24 hr furosemide 20 mg tablet 20 mg PO DAILY 04/04/20 06/03/20 History hydrochlorothiazide 50 mg tablet 50 mg PO DAILY 04/04/20 06/03/20 History clonazepam 2 mg tablet 2 mg PO BEDTIME #90 tab 04/21/20 06/03/20 Rx tiotropium bromide 2.5 See Rx Instructions .ROUTE 05/01/20 06/03/20 Rx mcg/actuation mist for inhalation .COMPLEX #4 gram levothyroxine 125 mcg tablet 125 mcg PO QDAY #90 tab 06/03/20 Rx losartan 100 mg tablet 100 mg PO DAILY #90 tab 06/03/20 Rx Allergies Allergy/AdvReac Type Severity Reaction Status Date / Time atenolol [ATENOLOL] Allergy Mild COUGH Verified 04/23/20 15:25 phenindamine [PHENINDAMINE] Allergy Unknown Verified 04/23/20 15:25 pseudoephedrine Allergy Unknown Verified 04/23/20 15:25 [PSEUDOEPHEDRINE] caffeine AdvReac Intermediate panic Verified 04/23/20 15:25 attacks amlodipine AdvReac Mild dizzy Verified 04/23/20 15:25 lisinopril AdvReac Mild cough Verified 04/23/20 15:25 terazosin AdvReac Mild dizzy Verified 04/23/20 15:25 verapamil AdvReac Mild dizzy Verified 04/23/20 15:25 alendronate sodium AdvReac Verified 04/23/20 15:25 [From Fosamax] fexofenadine AdvReac Verified 04/23/20 15:25 cetirizine AdvReac Uncoded 02/25/20 16:05 terazosin AdvReac Uncoded 02/25/20 16:05 Exam Vital Signs (past 8 hours): - 06/03/20 01:16 06/03/20 06:37 Temperature 97.9 F Pulse Rate 76 47 L Respiratory Rate 20 20 Blood Pressure 102/60 Pulse Oximetry 95 95 Oxygen Delivery Method CPAP Oxygen Flow Rate 3 Narrative Exam Narrative: GEN - alert, cooperative and no distress HEENT - normocephalic and atraumatic, sclera white, moist mucus membranes NECK - no adenopathy, no JVD HEART - distant heart sounds, RRR, S1, S2 normal, no S3 or S4, no murmurs LUNGS - symmetric chest rise, no accessory muscles, mild crackles bilateral bases, faint expiratory wheezing all lung smith ABD - nondistended, normal bowel sounds, soft, nontender and no hepatomegaly, splenomegaly or masses EXT - no cyanosis, clubbing or edema SKIN - no rashes or suspicious lesions NEURO - no gross deficits Objective Labs Result Diagrams: 06/02/20 21:09 06/03/20 05:33 Labs: Laboratory Results - last 24 hr 06/02/20 06/02/20 06/02/20 21:09 21:09 21:09 WBC 13.6 H RBC 4.25 Hgb 12.2 Hct 35.4 L MCV 83.2 MCH 28.6 MCHC 34.4 RDW 14.4 Plt Count 224 Neut % (Auto) 82.7 H Lymph % (Auto) 5.4 L [place] % (Auto) 9.2 Eos % (Auto) 2.1 Baso % (Auto) 0.6 Neut # (Auto) 65606 H Lymph # (Auto) 700 L [place] # (Auto) 1200 H Eos # (Auto) 300 Baso # (Auto) 100 PT INR D-Dimer Sodium 120 L Potassium 3.3 L Chloride 87 L Carbon Dioxide 24 BUN 14 Creatinine 0.96 Estimated GFR 55.6 L BUN/Creatinine Ratio 14.6 Glucose 130 H Calcium 8.4 Total Bilirubin 1.3 AST 93 H ALT 182 H Alkaline Phosphatase 280 H Total Creatine Kinase 235 H CK-MB (CK-2) 2.94 H CK-MB (CK-2) Rel Index 1.3 L Troponin I 0.119 H NT-Pro-B Natriuret Pep 2620 H Total Protein 7.5 Albumin 4.0 Globulin 3.5 Albumin/Globulin Ratio 1.1 Procalcitonin 0.73 H COVID-19 PCR 06/02/20 06/02/20 06/02/20 21:09 22:15 22:44 WBC RBC Hgb Hct MCV MCH MCHC RDW Plt Count Neut % (Auto) Lymph % (Auto) [place] % (Auto) Eos % (Auto) Baso % (Auto) Neut # (Auto) Lymph # (Auto) [place] # (Auto) Eos # (Auto) Baso # (Auto) PT 18.3 H INR 1.6 H D-Dimer 831 H Sodium Potassium Chloride Carbon Dioxide BUN Creatinine Estimated GFR BUN/Creatinine Ratio Glucose Calcium Total Bilirubin AST ALT Alkaline Phosphatase Total Creatine Kinase CK-MB (CK-2) CK-MB (CK-2) Rel Index Troponin I 0.124 H* NT-Pro-B Natriuret Pep Total Protein Albumin Globulin Albumin/Globulin Ratio Procalcitonin COVID-19 PCR Negative 06/03/20 05:33 WBC RBC Hgb Hct MCV MCH MCHC RDW Plt Count Neut % (Auto) Lymph % (Auto) [place] % (Auto) Eos % (Auto) Baso % (Auto) Neut # (Auto) Lymph # (Auto) [place] # (Auto) Eos # (Auto) Baso # (Auto) PT INR D-Dimer Sodium 122 L Potassium 3.8 Chloride 87 L Carbon Dioxide 29 BUN 15 Creatinine 0.96 Estimated GFR 55.6 L BUN/Creatinine Ratio 15.6 Glucose 132 H Calcium 8.1 L Total Bilirubin AST ALT Alkaline Phosphatase Total Creatine Kinase CK-MB (CK-2) CK-MB (CK-2) Rel Index Troponin I NT-Pro-B Natriuret Pep 2980 H Total Protein Albumin Globulin Albumin/Globulin Ratio Procalcitonin COVID-19 PCR Assessment & Plan Assessment & Plan narrative: Pt is an 84yo woman with hypertension, COPD, hyperlipidemia, hx of seizures, paroxysmal atrial fibrillation and 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 1) Acute respiratory failure: Likely due to acute diastolic heart failure (EF from 04/29 65%) with preserved EF with significantly elevated BNP and crackles on exam. COPD likely contributing as well - pt without significant wheeze on exam today but has already received IV steroids and breathing treatments. Pt received antibiotics in the ED due to elevated procalcitonin and WBC count, however CXR and Chest CT show no evidence of pneumonia, do not plan to continue at this time. Chest CT shows no PE. - IV Lasix 40mg q8hr for now. Will likely decrease dosing tomorrow. - Daily weights - Continue home inhalers - Duonebs PRN - Continue IV steroids for now - Continue oxygen, titrate 2) Hyponatremia and hypokalemia: Hypokalemia resolved after potassium supplementation - Aggressive diuresis to correct hyponatremia with IV Lasix. Continue to trend. - 20mEq PO Potassium BID, monitoring closely 3) Weakness: Most likely due to respiratory decompensation in addition to hyponatremia - PT/OT evaluation 4) Elevated liver enzymes: Most likely due to hepatic congestion from fluid overload. - Continue to trend 5) Type II GA: Elevated troponin, now trending back down. No evidence of ischemia on EKG. Most likely due to CHF. - Repeat troponin if symptomatic 6) Hypothyroidism: - Continue home Levothyroxine 7) Hyperlipidemia: - Continue home Rosuvastatin 8) Hypertension: - Hold home HCTZ and Losartan for now due to relative hypotension 9) Atrial fibrillation: - Continue home Pradaxa FEN: Cardiac diet DVT: On anticoagulation Dispo: Pending improvement in respiratory status and adequate diuresis. Anticipate 2 midnights. Quality VTE Deep Vein Thrombosis/Pulmonary Embolism Present on Admission: No
[2020-06-03] MEDS: DABIGATRAN 75 MG CAPSULE 150 MG PO ×2 (08:52→20:17)
[2020-06-03] MEDS: LEVOTHYROXINE 125 MCG TABLET PO (08:53)
[2020-06-03] MEDS: FUROSEMIDE 20 MG TABLET PO (08:53)
[2020-06-03] MEDS: CHOLECALCIFEROL (VITAMIN D3) 1,000 UNIT TABLET 2000 UNIT PO (08:53)
[2020-06-03] MEDS: ROSUVASTATIN 10 MG TABLET PO (08:53)
[2020-06-03 08:57] LABS: Troponin I 0.075 ng/mL (0.01-0.034)
[2020-06-03] MEDS: MAGNESIUM CHLORIDE 64 MG TABLET 128 MG PO (10:15)
[2020-06-03] MEDS: FELODIPINE ER 5 MG TAB 10 MG PO (10:15)
[2020-06-03] MEDS: SALMETEROL 50 MCG DISKUS 1 PUFF INH ×2 (11:02→19:10)
[2020-06-03] MEDS: FUROSEMIDE 40 MG/4 ML VIAL IV ×2 (11:36→18:32)
[2020-06-03] MEDS: TIOTROPIUM BROMIDE 18 MCG INHALER INH (13:57)
[2020-06-03 14:55] LABS: Alanine Aminotransferase 155 IU/L (<35); Albumin 3.9 g/dL (3.5-5.0); Albumin Globulin Ratio 1.2 (1.0-2.8); Alkaline Phosphatase 249 U/L (38-126); Aspartate Aminotransferase 95 IU/L (14-36); BUN Creatinine Ratio 16.2 (6-22); Bilirubin Total 0.8 mg/dL (0.2-1.3); Blood Urea Nitrogen 16 mg/dL (7-17); Calcium 8.4 mg/dL (8.4-10.2); Carbon Dioxide 25 mmol/L (22-32); Chloride 87 mmol/L (98-107); Estimated Glomerular Filt Rate 53.7 mL/min (>60); Globulin 3.3 g/dL (1.7-4.1); Glucose 118 mg/dL (80-110); HEMOLYSIS < 15 (0-50); Sodium 123 mmol/L (137-145); Total Protein 7.2 g/dL (6.3-8.2)
--- NOTE | 2020-06-03 14:58 | PT.IIE ---
Surgical History (Last Reviewed 04/23/20 @ 16:12 by Kishor Lee DO) Anesthesia (Resolved) History of cataract removal with insertion of prosthetic lens (Resolved 2013) History of left knee surgery (Resolved 2009) History of squamous cell carcinoma excision (Resolved 2000) Status post cholecystectomy (Resolved 2004) Status post wrist surgery (Resolved 2009) Medical History (Last Reviewed 04/23/20 @ 16:12 by Kishor Lee DO) AAA (abdominal aortic aneurysm) (Chronic) Actinic keratosis (Chronic) Chicken pox (Resolved 194) Chronic back pain (Chronic 1955) COPD (chronic obstructive pulmonary disease) (Chronic) DVT (deep venous thrombosis) (Resolved) Facet arthropathy, lumbar (Acute) Fracture of left patella (Resolved 2009) Fracture of right wrist (Resolved 2009) Hypertension (Chronic) Hypothyroidism (Chronic) Lumbar stenosis (Acute) Osteoarthritis (Chronic 2009) Osteoporosis (Chronic) Retinal detachment (Resolved 2011) RLS (restless legs syndrome) (Chronic 1959) SCCA (squamous cell carcinoma) of skin (Resolved 2000) Seizures (Chronic 1953) Skin cancer (Resolved 2000) Tinnitus (Chronic) Physical Therapy Inpatient Evaluation/Re-Eval M1 PT/OT-IP Prior Functional Status Start: 06/03/20 13:36 Freq: NEEDED Status: Active Protocol: Document 06/03/20 14:24 AW (Rec: 06/03/20 14:58 AW [email or web address]) Medical Review Prior Functional Status Medical History Reviewed Yes Communication WNL. No known deficits. Mobility and Gait Pt's mobility is limited secondary to chronic low back pain. She does not typically use an AD in the house but tends to use a SPC for short trips to and from the car. She states she stays close to machado and furniture in the house for support. She denies any falls in the last year. Activities of Daily Living and IADL's Independent with all ADL's. Pt does not drive; her , Jace, drives her to appointments. They have left their home only for medical appointments since November 2019. Prior Functional Level (Other details) Pt is using 3L/min O2 at home and uses a CPAP at night Social History Household Members spouse Living Arrangements House Number of Floors (Floors) One Floor Number of Stairs To Enter/Railing? Home has level entrance Home Environment High Toilet,Tub/Shower Home Equipment Four Wheel Walker,Straight Cane,Grab Bars In Shower Additional Social History Comment Pt lives with her spouse, Jace, who is able to assist as much as needed. M2 PT-IP Current Condition Start: 06/03/20 13:36 Freq: NEEDED Status: Active Protocol: Document 06/03/20 14:24 AW (Rec: 06/03/20 14:58 AW [email or web address]) Physical Therapy Current Condition Current Condition Evaluation Date 06/03/20 Treatment Diagnosis acute resp failure, acute HF, difficulty in walking Onset Date 06/01/20 Precautions Other Precautions Pt uses 3L/min O2 at home. M3 PT-IP Subjective Start: 06/03/20 13:36 Freq: NEEDED Status: Active Protocol: Document 06/03/20 14:24 AW (Rec: 06/03/20 14:58 AW [email or web address]) Subjective Physical Therapy Visit Type Type Initial Evaluation Visit Start Time 13:56 Visit Stop Time 14:22 Total Visit Minutes 26 Notes Initial troponin was 0.124. Second was 0.075. Per H&P: No evidence of ischemia on EKG. Most likely due to CHF. Number of LOTTERY MANAGER Visits 0 Physical Therapy Visit Comments Patient Comments Pt is willing to participate with PT Therapy Pain Assessment Pain When Pain Assessed During Mobility Pain Present Pain Present Pain Reported Location headache Intensity 2 M4 PT-IP Mobility and Gait Start: 06/03/20 13:36 Freq: NEEDED Status: Active Protocol: Document 06/03/20 14:24 AW (Rec: 06/03/20 14:58 AW [email or web address]) PT-Transfer Assessment Sit to and From Stand Sit to and from Stand Contact Guard Assistance,Use of Upper Extremities Equipment Transfer Assistive Device Gait Belt Transfers Transfer Destination Chair Transfer Technique pt ambulated without AD Transfer Ability Level of Assist Contact Guard Assistance Comments Mobility Comments Pt was sitting up in the chair when PT arrived. SpO2 was 94% on 2L/min O2 via NC. Pt completed sit to stand CGA due to initial unsteadiness. She ambulated around the room without AD CGA for a total of 30 feet with (+) SOB and SpO2 of 89% upon return to the chair, recovered to 94% within 2 minutes. Pt then completed 5 Time Sit to motorcycle riding instructor 30 seconds with drop in SpO2 to 90%, recovering to 93% within 2 minutes with cues for pursed lip breathing. Pt agreed to ambulate to the sink and back with FWW SBA, SpO2 stable. Pt was repositioned on the chair with extra blankets, call light and all needs within reach. Gait Assessment Gait Gait Assistance Required: Standby Assistance,Contact Guard Assist Distance (Feet) 30 Assistive Devices Assistive Device None,Gait Belt,Front Wheeled Walker Gait Deviations General Gait Pattern Antalgic,Decreased Stride Length,Decreased Feet Clearance,Lateral Trunk Lean Factors Limiting Gait Function Factors Limiting Gait Function Decreased Activity Tolerance, Pain,Poor Balance,Poor Safety Awareness,Respiratory Distress Comments Gait Comments Pt ambulated in the room without AD CGA and reached for the sink, foot of bed, and machado to steady herself. Pt later agreed to trial FWW with improved steadiness, requiring only SBA. Stair Climbing Assessment Comments Stair Climbing Comments Not assessed. No stairs at home. PT-Balance Assessment Sitting Balance and Reactions Static Sitting Balance Ability Normal Dynamic Sitting Balance Ability Normal Standing Balance and Reactions Static Standing Balance Ability Good Dynamic Standing Balance Ability Fair Device Used no AD Functional Assessments Functional Tests 5 Times Sit to Stand 30 seconds with use of BUE on chair arms M5 PT-IP Objective Assessments Start: 06/03/20 13:36 Freq: NEEDED Status: Active Protocol: Document 06/03/20 14:24 AW (Rec: 06/03/20 14:58 AW [email or web address]) Orientation Orientation/Cognition Level of Alertness Alert Orientation Name,Month,Place,Situation Language Function Ability No Deficits Noted Safety Awareness Understands Safety Issues Memory Description No Deficits Noted Gross Range of Motion Lower Extremity ROM Assessment Within Functional Limits Strength Lower Extremity Strength Assessment Within Functional Limits Hip 4+/5 Knee 4+/5 Ankle 5/5 Comments Strength Comments Strength on MMT is WFL but pt is easily fatigable with mobility. Sensation Assessment Sensation Gross Sensation WNL Muscle Tone Muscle Tone WNL Yes M6 PT-IP Treatment Start: 06/03/20 13:36 Freq: NEEDED Status: Active Protocol: Document 06/03/20 14:24 AW (Rec: 06/03/20 14:58 AW [email or web address]) Physical Therapy Treatment Education Education Provided Safety Other Treatments Other Treatment Performed Provided education on role of PT, plan of care, and rationale for selection of an appropriate assistive device. M7 PT-IP Assessment and Plan Start: 06/03/20 13:36 Freq: NEEDED Status: Active Protocol: Document 06/03/20 14:24 AW (Rec: 06/03/20 14:58 AW [email or web address]) PT Summary Assessment and Plan Potential Rehabilitation Potential Good Status of Condition at Evaluation Evolving Summary Impairments Pain,Balance,Transfers,Gait, Activity Tolerance Assessment Summary Zoey is an 84 yo woman with history of chronic low back pain and COPD. She is admitted with acute respiratory and heart failure with complaints of orthopnea. She uses 3 L/min O2 at home. At baseline, she is independent for household mobility and uses a SPC for short distance ambulation outside of the house. She cruises furniture at home but denies any falls in the past year. On evaluation, she required CGA for ambulation without AD and SBA for ambulation with FWW. SpO2 drops with activity from 94% to 89% on 2L/min. Pt will benefit from continued acute PT to progress safe mobility. PT anticipates she will be safe to discharge home with spouse assist once medically cleared. Will continue to assess for potential need for HH PT. Goals Bed Mobility Goal Independent Transfer Goal Independent Gait Goal Independent,Front Wheel Walker Gait Distance 100 Other Goals - improve ambulation to IND with SPC or without AD Days to Meet Goals 2 Frequency of Treatment Frequency Of Treatment Once a Day Treatment Plan Physical Therapy Treatment Plan Bed Mobility Training,Transfer Training,Gait Training, Therapeutic Exercise,Balance Retraining,Discharge Planning, Hot or Cold Pack,Neuromuscular Re-ed Other Recommendations and Next Treatment gait with or without SPC or Focus FWW as tolerated, monitor SpO2 ; assess bed mobility Recommendations To Nursing Amount of Assist Needed 1 Person Assist Discharge Recommendations PT Discharge Recommendations Home with Assistance Other Discharge Recommendations Home with assist vs home with assist and HH Transportation Needs at Discharge Private Vehicle
--- NOTE | 2020-06-03 15:38 | OT.IP.EVAL ---
Past Medical History (Last Reviewed 04/23/20 @ 16:12 by Kishor Lee DO) AAA (abdominal aortic aneurysm) (Chronic) Actinic keratosis (Chronic) Chicken pox (Resolved 1946) Chronic back pain (Chronic 1955) COPD (chronic obstructive pulmonary disease) (Chronic) DVT (deep venous thrombosis) (Resolved) Facet arthropathy, lumbar (Acute) Fracture of left patella (Resolved 2009) Fracture of right wrist (Resolved 2009) Hypertension (Chronic) Hypothyroidism (Chronic) Lumbar stenosis (Acute) Osteoarthritis (Chronic 2009) Osteoporosis (Chronic) Retinal detachment (Resolved 2011) RLS (restless legs syndrome) (Chronic 1959) SCCA (squamous cell carcinoma) of skin (Resolved 2000) Seizures (Chronic 1953) Skin cancer (Resolved 2000) Tinnitus (Chronic) Surgical History (Last Reviewed 04/23/20 @ 16:12 by Kishor Lee DO) Anesthesia (Resolved) History of cataract removal with insertion of prosthetic lens (Resolved 2013) History of left knee surgery (Resolved 2009) History of squamous cell carcinoma excision (Resolved 2000) Status post cholecystectomy (Resolved 2004) Status post wrist surgery (Resolved 2009) Occupational Therapy Inpatient Evaluation/Re-Eval M1 PT/OT-IP Prior Functional Status Start: 06/03/20 16:12 Freq: NEEDED Status: Active Protocol: Document 06/03/20 16:12 [facility] (Rec: 06/03/20 16:29 [facility] [id number]) Medical Review Prior Functional Status Medical History Reviewed Yes Communication WNL. No known deficits. Mobility and Gait Pt's mobility is limited secondary to chronic low back pain. She does not typically use an AD in the house but tends to use a SPC for short trips to and from the car. She states she stays close to machado and furniture in the house for support. She denies any falls in the last year. Activities of Daily Living and IADL's Independent with all ADL's. Pt does not drive; her , Jace, drives her to appointments. They have left their home only for medical appointments since November 2019. Pt states does the bills and medication at home. Prior Functional Level (Other details) Pt is using 3L/min O2 at home and uses a CPAP at night Social History Household Members spouse Living Arrangements House Number of Floors (Floors) One Floor Number of Stairs To Enter/Railing? Home has level entrance Home Environment High Toilet,Tub/Shower Home Equipment Front Wheel Walker,Four Wheel Walker,Straight Cane,Grab Bars In Shower Additional Social History Comment Pt lives with her spouse, Jace, who is able to assist as much as needed. M2 OT-IP Current Condition Start: 06/03/20 16:12 Freq: Status: Active Protocol: Document 06/03/20 16:12 [facility] (Rec: 06/03/20 16:29 [facility] [id number]) Occupational Therapy Current Condition Current Condition Evaluation Date 06/03/20 Treatment Diagnosis Acute Respiratory Failure Diagnosis Onset Date 06/03/20 M3 OT- IP Subjective and Pain Start: 06/03/20 16:12 Freq: Status: Active Protocol: Document 06/03/20 16:12 [facility] (Rec: 06/03/20 16:29 [facility] [id number]) OT- Subjective Occupational Therapy Visit Type Type Initial Evaluation Visit Start Time 15:12 Visit Stop Time 15:38 Total Visit Minutes 26 Occupational Therapy Visit Comments Patient Comments Pt agreed to get up for OT eval and wanting to brush her teeth. Patient/Caregiver Goals TO go home. OT Pain Assessment Pain When Pain Assessed At Rest Pain Present Pain Present Denied Pain M4 OT- IP ADL's Start: 06/03/20 16:12 Freq: Status: Active Protocol: Document 06/03/20 16:12 [facility] (Rec: 06/03/20 16:29 [facility] [id number]) OT [id number] Comments OT Self-Feeding Comments NOt at meal time. OT ADL-Grooming General Evaluation Grooming Ability Independent OT ADL-Oral Care General Eval Oral Care Ability Independent OT ADL-Toileting Comments OT Toileting Comments Not having to go. OT ADL-Bathing Comments OT Bathing Comments Pt not wanting to shower at this time. M5 OT- IP IADL's Start: 06/03/20 16:12 Freq: Status: Active Protocol: Document 06/03/20 16:12 [facility] (Rec: 06/03/20 16:29 [facility] [id number]) OT-Instrumental Activities of Daily Living Home Safety Awareness Awareness of Need for Assistance at Home Good Awareness Ability to Problem Solve Emergency Able to Problem Solve Situations Medication Management Medication Management No Deficits Identified Money Management Money Management No Deficits Identified Meal Preparation Meal Preparation Caregiver Provides Assist Turf Manager Turf Manager Caregiver Provides Assist Driving Driving Caregiver Provides Assist M6 OT- IP Functional Cognition Start: 06/03/20 16:12 Freq: Status: Active Protocol: Document 06/03/20 16:12 [facility] (Rec: 06/03/20 16:29 [facility] [id number]) Cognitive Factors Limiting Selfcare Function Cognitive Ability Level of Alertness Alert Patient Orientation Name,Place,Situation Attention Span Ability Capable of Focused Attention, Capable of Sustained Attention Ability to Follow Commands Able to Follow Multi-Step Commands Memory Description No Deficits Noted Cognitive Comments Cognitive Assessment Comments Pt appears to be cognitively intact with no deficits. OT- Vision and Hearing OT- Hearing Assessment OT- Hearing Assessment WFL OT- Vision Assessment Visual Acuity Glasses All The Time M7 OT- IP Mobility and Balance Start: 06/03/20 16:12 Freq: Status: Active Protocol: Document 06/03/20 16:12 [facility] (Rec: 06/03/20 16:29 [facility] [id number]) OT-Transfer Assessment Sit to and From Stand Sit to and from Stand Standby Assistance Transfers Transfer Ability Standby Assistance Devices Transfer Assistive Devices Gait Belt,Front Wheeled Walker Comments Mobility Comments Pt is SBA with FWW. Pt on 2L O2 94% trial of O2 on RA to be able to get to the sink and dropped to 90-91%. Pt able to increase to 93% with deep breathing exercises but quickly drops back to 90-91%/ O2 on 2L replaced as pt states feels better with O2 on and reading 93%. OT- Balance Assessment Sitting Balance and Reactions Static Sitting Balance Ability Normal Dynamic Sitting Balance Ability Normal Standing Balance and Reactions Static Standing Balance Ability Good M8 OT- IP Objective Assessments Start: 06/03/20 16:12 Freq: Status: Active Protocol: Document 06/03/20 16:12 [facility] (Rec: 06/03/20 16:29 [facility] [id number]) OT Gross Range of Motion Upper Extremity Range of Motion Assessment Within Functional Limits OT Strength Comments Strength Comments Right hand decreased due to history of fractured wrist. OT-Muscle Tone Assessment Muscle Tone WNL Yes M9 OT- IP Assessment and Plan Start: 06/03/20 16:12 Freq: Status: Active Protocol: Document 06/03/20 16:12 [facility] (Rec: 06/03/20 16:29 [facility] [id number]) OT Summary Assessment and Plan Potential Rehabilitation Potential Good Analytic Complexity at Evaluation Low Summary OT Impairments Functional Mobility,Dressing, Toileting,Bathing,Toilet Transfers,Shower Transfers, Activity Tolerance Progress Towards Goals Progressing Toward Goals Assessment Summary Pt low complexity and doing well and mainly SBA with FWW with O2 on 2L. Pt able to do ADl needs however main barriers are decreased activity tolerance, dynamic standing balance, and now needing O2 during the day. Pt has a supportive to assist at home Able to go over energy conservation strategies with pt . Home with when medically stable. Goals Grooming Goal Independent Dressing Goal Independent Toileting Goal Independent Bathing Goal Independent Toilet Transfer Goal Independent Shower Transfer Goal Independent Patient/Caregiver Education Goal Demonstrate Energy Conservation and Pacing Days to Meet Goals 2 Frequency of Treatment Frequency Of Treatment Once a Day Treatment Plan OT Treatment Plan ADL Training,Functional Mobility,Patient/Family Education,Discharge Planning Other Treatment Recommendations and Next Shower standing Treatment Focus Discharge Recommendations OT Discharge Recommendations Home with Assistance Home Equipment Needs Shower chair? Transportation Needs at Discharge Private Vehicle
[2020-06-03] MEDS: ACETAMINOPHEN 325 MG TABLET 650 MG PO (15:59)
[2020-06-03] MEDS: POTASSIUM CHLORIDE 20 MEQ TAB PO (15:59)
--- NOTE | 2020-06-03 18:08 | CM.DANOTE ---
Delightful A&O X 4 patient who presented to ED with a few days of worsening shortness of breath with minimal exertion. She denies any fever, chills or productive cough but does have elevated white blood cells and procalcitonin raising the suspicion of possible pneumonia. She does have exertional dyspnea, faint crackles in her bases and some pitting edema as well as an elevated BNP raising the suspicion of acute heart failure, recent echo in April suggests an EF of up to 65%. Additionally, she has no ischemic findings on her EKG but does have a slight bump in her troponin, awaiting secondary troponin to trend. Pt. only request is to help find a weekly cleaning lady. I suggested she reached out to the senior center to see if they have any names they can provide. I also gave her a senior resource guide to assist with any future needs. Monitor for continued assessment of needs since she is boarderline inpt. with MH of COPD and CHF status so may develop needs.
[2020-06-03] MEDS: LEVALBUTEROL HFA 200 PUFF INH INH (18:57)
[2020-06-03] MEDS: clonazePAM 0.5 MG TABLET 2 MG PO (20:17)
[2020-06-04] VITALS (8 sets, daily range): BP systolic 113–145; BP diastolic 56–80; PULSE 62–83; RESP 15–18; TEMP 36.3–37.2; O2SAT 92–96
[2020-06-04] MEDS: FUROSEMIDE 40 MG/4 ML VIAL IV ×3 (02:40→17:15)
[2020-06-04 05:46] LABS: Add Manual Diff / Slide Review NO; Basophils Absolute Auto 100 /uL (0-100); Basophils Percent Auto 0.4 % (0-2); Eosinophils Absolute Auto 0 /uL (0-450); Eosinophils Percent Auto 0.3 % (2-4); Hematocrit 35.5 % (36-46); Hemoglobin 12.4 g/dL (12.0-16.0); Lymphocytes Absolute Auto 1800 /uL (1100-4500); Lymphocytes Percent Auto 14.3 % (25-40); Mean Corpuscular HGB Conc 34.8 % (30-36); Mean Corpuscular Hemoglobin 28.8 PG (26-34); Mean Corpuscular Volume 82.8 fL (80-100); Monocytes Absolute Auto 900 /uL (0-900); Monocytes Percent Auto 7.4 % (3-14); Neutrophils Absolute Auto 9900 /uL (1500-7000); Neutrophils Percent Auto 77.6 % (50-75); Platelet Count 255 X10^3/uL (150-400); Red Blood Cell Count 4.29 X10^6/uL (4.0-5.2); Red Cell Distribution Width 14.4 % (11.6-14.8); White Blood Cell Count 12.8 X10^3/uL (4.5-11.0)
[2020-06-04 05:55] LABS: Alanine Aminotransferase 164 IU/L (<35); Albumin 4.2 g/dL (3.5-5.0); Albumin Globulin Ratio 1.2 (1.0-2.8); Alkaline Phosphatase 287 U/L (38-126); Aspartate Aminotransferase 96 IU/L (14-36); BUN Creatinine Ratio 23.7 (6-22); Bilirubin Total 0.6 mg/dL (0.2-1.3); Blood Urea Nitrogen 23 mg/dL (7-17); Calcium 9.1 mg/dL (8.4-10.2); Carbon Dioxide 26 mmol/L (22-32); Chloride 88 mmol/L (98-107); Globulin 3.4 g/dL (1.7-4.1); Glucose 141 mg/dL (80-110); HEMOLYSIS < 15 (0-50); Potassium 3.9 mmol/L (3.4-5.1); Sodium 125 mmol/L (137-145); Total Protein 7.6 g/dL (6.3-8.2)
[2020-06-04 05:57] LABS: INR 1.3 (0.9-1.3); Prothrombin Time 14.8 SECONDS (10.1-12.7)
[2020-06-04 06:00] LABS: PTT Partial Thromboplastin Tim 43 SECONDS (26.4-36.2)
[2020-06-04 06:04] LABS: NT-proBNP (BNP-Adult 18+) 1780 pg/mL (<450)
[2020-06-04] MEDS: LEVOTHYROXINE 125 MCG TABLET PO (06:06)
[2020-06-04] MEDS: DABIGATRAN 75 MG CAPSULE 150 MG PO ×2 (09:29→21:19)
[2020-06-04] MEDS: ROSUVASTATIN 10 MG TABLET PO (09:29)
[2020-06-04] MEDS: CHOLECALCIFEROL (VITAMIN D3) 1,000 UNIT TABLET 2000 UNIT PO (09:29)
[2020-06-04] MEDS: POTASSIUM CHLORIDE 20 MEQ TAB PO ×2 (09:29→17:14)
[2020-06-04] MEDS: FELODIPINE ER 5 MG TAB 10 MG PO (09:30)
[2020-06-04] MEDS: MAGNESIUM CHLORIDE 64 MG TABLET 128 MG PO (09:31)
[2020-06-04] MEDS: SODIUM CHLORIDE 0.9% FLUSH 10 ML IV ×3 (09:32→21:20)
[2020-06-04] MEDS: LEVALBUTEROL HFA 200 PUFF INH INH ×3 (09:50→21:45)
[2020-06-04] MEDS: SALMETEROL 50 MCG DISKUS 1 PUFF INH ×2 (09:52→21:23)
--- NOTE | 2020-06-04 11:09 | PT.IPTN ---
Physical Therapy Treatment Note M2 PT-IP Current Condition Start: 06/03/20 13:36 Freq: NEEDED Status: Active Protocol: Document 06/03/20 14:24 [facility] (Rec: 06/03/20 14:58 [facility] [id number]) Physical Therapy Current Condition Current Condition Evaluation Date 06/03/20 Treatment Diagnosis acute resp failure, acute HF, difficulty in walking Onset Date 06/01/20 Precautions Other Precautions Pt uses 3L/min O2 at home. M3 PT-IP Subjective Start: 06/03/20 13:36 Freq: NEEDED Status: Active Protocol: Document 06/04/20 11:00 [facility] (Rec: 06/04/20 11:09 [facility] [id number]) Subjective Physical Therapy Visit Type Type Treatment Note Visit Start Time 10:30 Visit Stop Time 11:10 Total Visit Minutes 30 Number of BULLET SLUGS INSPECTOR Visits 0 Physical Therapy Visit Comments Patient Comments Patient is sitting up in bed and agrees to PT Therapy Pain Assessment Pain Present Pain Present Denied Pain M4 PT-IP Mobility and Gait Start: 06/03/20 13:36 Freq: NEEDED Status: Active Protocol: Document 06/03/20 14:24 [facility] (Rec: 06/03/20 14:58 [facility] [id number]) PT-Transfer Assessment Sit to and From Stand Sit to and from Stand Contact Guard Assistance,Use of Upper Extremities Equipment Transfer Assistive Device Gait Belt Transfers Transfer Destination Chair Transfer Technique pt ambulated without AD Transfer Ability Level of Assist Contact Guard Assistance Comments Mobility Comments Pt was sitting up in the chair when PT arrived. SpO2 was 94% on 2L/min O2 via NC. Pt completed sit to stand CGA due to initial unsteadiness. She ambulated around the room without AD CGA for a total of 30 feet with (+) SOB and SpO2 of 89% upon return to the chair, recovered to 94% within 2 minutes. Pt then completed 5 Time Sit to paint laboratory technician 30 seconds with drop in SpO2 to 90%, recovering to 93% within 2 minutes with cues for pursed lip breathing. Pt agreed to ambulate to the sink and back with FWW SBA, SpO2 stable. Pt was repositioned on the chair with extra blankets, call light and all needs within reach. Gait Assessment Gait Gait Assistance Required: Standby Assistance,Contact Guard Assist Distance (Feet) 30 Assistive Devices Assistive Device None,Gait Belt,Front Wheeled Walker Gait Deviations General Gait Pattern Antalgic,Decreased Stride Length,Decreased Feet Clearance,Lateral Trunk Lean Factors Limiting Gait Function Factors Limiting Gait Function Decreased Activity Tolerance, Pain,Poor Balance,Poor Safety Awareness,Respiratory Distress Comments Gait Comments Pt ambulated in the room without AD CGA and reached for the sink, foot of bed, and machado to steady herself. Pt later agreed to trial FWW with improved steadiness, requiring only SBA. Stair Climbing Assessment Comments Stair Climbing Comments Not assessed. No stairs at home. PT-Balance Assessment Sitting Balance and Reactions Static Sitting Balance Ability Normal Dynamic Sitting Balance Ability Normal Standing Balance and Reactions Static Standing Balance Ability Good Dynamic Standing Balance Ability Fair Device Used no AD Functional Assessments Functional Tests 5 Times Sit to Stand 30 seconds with use of BUE on chair arms M5 PT-IP Objective Assessments Start: 06/03/20 13:36 Freq: NEEDED Status: Active Protocol: Document 06/03/20 14:24 [facility] (Rec: 06/03/20 14:58 [facility] [id number]) Orientation Orientation/Cognition Level of Alertness Alert Orientation Name,Month,Place,Situation Language Function Ability No Deficits Noted Safety Awareness Understands Safety Issues Memory Description No Deficits Noted Gross Range of Motion Lower Extremity ROM Assessment Within Functional Limits Strength Lower Extremity Strength Assessment Within Functional Limits Hip 4+/5 Knee 4+/5 Ankle 5/5 Comments Strength Comments Strength on MMT is WFL but pt is easily fatigable with mobility. Sensation Assessment Sensation Gross Sensation WNL Muscle Tone Muscle Tone WNL Yes M6 PT-IP Treatment Start: 06/03/20 13:36 Freq: NEEDED Status: Active Protocol: Document 06/04/20 11:00 [facility] (Rec: 06/04/20 11:09 [facility] [id number]) Physical Therapy Treatment Exercises Exercises Ankle Pumps Education Education Provided Safety Other Treatments Other Treatment Performed Pt was supine in bed when PT started, she was able to transfer from supine to sit Ind. She sat at the edge of the bed x 5 min to get her O2 ready for ambulation. She balanced great at the edge of the bed. She transfered from sit-stand with SBA, gait belt , and FWW. She ambulated to the bathroom with SBA. After using the bathroom to void she ambulated with the fww and SBA to the sink to wash hands and do her hair. I used CGA with her and she was able to maintain good balance while standing at the sink. She ambulated with the fww back to the bedside chair with SBA. Pt was positioned comfortably in the chair with call light within reach M7 PT-IP Assessment and Plan Start: 06/03/20 13:36 Freq: NEEDED Status: Active Protocol: Document 06/04/20 11:00 [facility] (Rec: 06/04/20 11:09 [facility] [id number]) PT Summary Assessment and Plan Potential Rehabilitation Potential Good Status of Condition at Evaluation Evolving Summary Impairments Pain,Balance,Transfers,Gait, Activity Tolerance Assessment Summary Zoey demonstrated Ind for bed mobility today, She was SBA for ambulation ambulation with FWW. I did use CGA while she was standing at the counter. SpO2 at 96 after activity. Pt is on 2 liters O2 Pt will benefit from continued acute PT to progress safe mobility. PT anticipates she will be safe to discharge home with spouse assist once medically cleared. Will continue to assess for potential need for HH PT. Goals Bed Mobility Goal Independent Transfer Goal Independent Gait Goal Independent,Front Wheel Walker Gait Distance 100 Other Goals - improve ambulation to IND with SPC or without AD Days to Meet Goals 2 Frequency of Treatment Frequency Of Treatment Once a Day Treatment Plan Physical Therapy Treatment Plan Bed Mobility Training,Transfer Training,Gait Training, Therapeutic Exercise,Balance Retraining,Discharge Planning, Hot or Cold Pack,Neuromuscular Re-ed Other Recommendations and Next Treatment gait with or without SPC or Focus FWW as tolerated, monitor SpO2 ; assess bed mobility Recommendations To Nursing Amount of Assist Needed 1 Person Assist Discharge Recommendations PT Discharge Recommendations Home with Assistance Other Discharge Recommendations Home with assist vs home with assist and HH Transportation Needs at Discharge Private Vehicle
--- NOTE | 2020-06-04 12:35 | P.PN_ITS ---
Subjective Subjective Date Patient Seen: 06/04/20 Time Patient Seen: 06:50 Interval history: The pt reports that she was able to sleep better, laying more flat, last night. She feels that her overall SOB is improved. She denies any wheezing or significant cough. She is feeling significantly improved. Exam Vital Signs (past 8 hours): - 06/04/20 04:56 06/04/20 08:00 06/04/20 11:13 Temperature 98.9 F 97.3 F L 97.9 F Pulse Rate 65 62 75 Respiratory Rate 18 15 16 Blood Pressure 114/64 113/56 L 135/62 Pulse Oximetry 95 96 92 Oxygen Delivery Method Room Air Oxygen Flow Rate 0 Narrative Exam Narrative: GEN - alert, cooperative and no distress HEART - distant heart sounds, RRR, S1, S2 normal, no S3 or S4, no murmurs LUNGS - symmetric chest rise, no accessory muscles, no crackles or wheezes bilaterally, slightly decreased breath sounds throughout ABD - nondistended, normal bowel sounds, soft, nontender and no hepatomegaly, splenomegaly or masses EXT - no cyanosis, clubbing or edema Objective Labs Result Diagrams: 06/04/20 05:28 06/04/20 05:28 Labs: Laboratory Results - last 24 hr 06/03/20 06/04/20 06/04/20 08:25 05:28 05:28 WBC 12.8 H RBC 4.29 Hgb 12.4 Hct 35.5 L MCV 82.8 MCH 28.8 MCHC 34.8 RDW 14.4 Plt Count 255 Neut % (Auto) 77.6 H Lymph % (Auto) 14.3 L Menard % (Auto) 7.4 Eos % (Auto) 0.3 L Baso % (Auto) 0.4 Neut # (Auto) 9900 H Lymph # (Auto) 1800 [place]ard # (Auto) 900 Eos # (Auto) 0 Baso # (Auto) 100 PT 14.8 H INR 1.3 APTT 43 H Sodium 123 L Potassium 4.0 Chloride 87 L Carbon Dioxide 25 BUN 16 Creatinine 0.99 Estimated GFR 53.7 L BUN/Creatinine Ratio 16.2 Glucose 118 H Calcium 8.4 Total Bilirubin 0.8 AST 95 H ALT 155 H Alkaline Phosphatase 249 H NT-Pro-B Natriuret Pep Total Protein 7.2 Albumin 3.9 Globulin 3.3 Albumin/Globulin Ratio 1.2 06/04/20 05:28 WBC RBC Hgb Hct MCV MCH MCHC RDW Plt Count Neut % (Auto) Lymph % (Auto) Menard % (Auto) Eos % (Auto) Baso % (Auto) Neut # (Auto) Lymph # (Auto) Menard # (Auto) Eos # (Auto) Baso # (Auto) PT INR APTT Sodium 125 L Potassium 3.9 Chloride 88 L Carbon Dioxide 26 BUN 23 H Creatinine 0.97 Estimated GFR 55.0 L BUN/Creatinine Ratio 23.7 H Glucose 141 H Calcium 9.1 Total Bilirubin 0.6 AST 96 H ALT 164 H Alkaline Phosphatase 287 H NT-Pro-B Natriuret Pep 1780 H Total Protein 7.6 Albumin 4.2 Globulin 3.4 Albumin/Globulin Ratio 1.2 Assessment & Plan Assessment & Plan narrative: Pt is an 84yo woman with hypertension, COPD, hyperlipidemia, hx of seizures, paroxysmal atrial fibrillation and 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 1) Acute respiratory failure: Likely due to acute diastolic heart failure (EF from 04/29 65%) with preserved EF with significantly elevated BNP and crackles on exam. COPD likely contributing as well. Pt received antibiotics in the ED due to elevated procalcitonin and WBC count, however CXR and Chest CT show no luis eduardo dence of pneumonia, did not continue. Chest CT shows no PE. Respiratory status gradually improving, with decreased oxygen requirements. - Continue IV Lasix 40mg q8hr - Daily weights - Continue home inhalers - Duonebs PRN - Decrease IV steroids to BID dosing, plan to transition to PO tomorrow - Continue oxygen, titrate 2) Hyponatremia and hypokalemia: Hypokalemia resolved after potassium suppl ementation. Hyponatremia improving gradually. - Aggressive diuresis to correct hyponatremia with IV Lasix. Continue to trend. - 20mEq PO Potassium BID, monitoring closely - Fluid restriction to 1500mL/day 3) Weakness: Most likely due to respiratory decompensation in addition to hyponatremia - PT/OT evaluation, cleared for home 4) Elevated liver enzymes: Most likely due to hepatic congestion from fluid overload. - Continue to trend 5) Type II MA: Elevated troponin, now trending back down. No evidence of ischemia on EKG. Most likely due to CHF. - Repeat troponin if symptomatic 6) Hypothyroidism: - Continue home Levothyroxine 7) Hyperlipidemia: - Continue home Rosuvastatin 8) Hypertension: - Hold home HCTZ and Losartan for now 9) Atrial fibrillation: - Continue home Pradaxa FEN: Cardiac diet DVT: On anticoagulation Dispo: Pending improvement in respiratory status and adequate diuresis, in addition to improvement in hyponatremia. Pt should be able to d/c home. Quality VTE Deep Vein Thrombosis/Pulmonary Embolism Present on Admission: No
--- NOTE | 2020-06-04 13:47 | OT.IP.TRT ---
Current Diagnoses Hypo-osmolality and hyponatremia (06/03/20) Occupational Therapy Treatment Note M2 OT-IP Current Condition Start: 06/03/20 16:12 Freq: Status: Active Protocol: Document 06/03/20 16:12 [facility] (Rec: 06/03/20 16:29 [facility] [id number]) Occupational Therapy Current Condition Current Condition Evaluation Date 06/03/20 Treatment Diagnosis Acute Respiratory Failure Diagnosis Onset Date 06/03/20 M3 OT- IP Subjective and Pain Start: 06/03/20 16:12 Freq: Status: Active Protocol: Document 06/04/20 13:49 [facility] (Rec: 06/04/20 14:09 [facility] [id number]) OT- Subjective Occupational Therapy Visit Type Type Treatment Note Visit Start Time 13:38 Visit Stop Time 13:47 Total Visit Minutes 9 Notes Pt eating lunch when OT came to see pt. Occupational Therapy Visit Comments Patient Comments Pt agreed to talk to OT as not wanting to shower at this time due to being too cold. Therefore per request of pt, thermostat in pt's room turned up from 63 to 70 degrees F. OT Pain Assessment Pain When Pain Assessed At Rest Pain Present Pain Present Denied Pain M4 OT- IP ADL's Start: 06/03/20 16:12 Freq: Status: Active Protocol: Document 06/04/20 13:49 [facility] (Rec: 06/04/20 14:09 [facility] [id number]) OT CAD-Adac-Rthfvtg General Evaluation Self-Feeding Ability Independent OT ADL-Bathing Comments OT Bathing Comments Pt not wanting to shower, therefore able to talk to pt that due to her need for O2 and also weakness that pt would benefit form a tub bench at home for showering needs. M5 OT- IP IADL's Start: 06/03/20 16:12 Freq: Status: Active Protocol: Document 06/03/20 16:12 [facility] (Rec: 06/03/20 16:29 [facility] [id number]) OT-Instrumental Activities of Daily Living Home Safety Awareness Awareness of Need for Assistance at Home Good Awareness Ability to Problem Solve Emergency Able to Problem Solve Situations Medication Management Medication Management No Deficits Identified Money Management Money Management No Deficits Identified Meal Preparation Meal Preparation Caregiver Provides Assist Hop Worker Hop Worker Caregiver Provides Assist Driving Driving Caregiver Provides Assist M6 OT- IP Functional Cognition Start: 06/03/20 16:12 Freq: Status: Active Protocol: Document 06/04/20 13:49 [facility] (Rec: 06/04/20 14:09 [facility] [id number]) Cognitive Factors Limiting Selfcare Function Cognitive Ability Level of Alertness Alert Patient Orientation Name,Place,Situation Attention Span Ability Capable of Focused Attention, Capable of Sustained Attention Ability to Follow Commands Able to Follow Multi-Step Commands Cognitive Comments Cognitive Assessment Comments Noted pt a little more forgetful today and having trouble remembering the O2 company that she used at home and di dnot remember that the PT saw her today already. Consider doing SLUMs tomorrow with pt. M7 OT- IP Mobility and Balance Start: 06/03/20 16:12 Freq: Status: Active Protocol: Document 06/03/20 16:12 [facility] (Rec: 06/03/20 16:29 [facility] [id number]) OT-Transfer Assessment Sit to and From Stand Sit to and from Stand Standby Assistance Transfers Transfer Ability Standby Assistance Devices Transfer Assistive Devices Gait Belt,Front Wheeled Walker Comments Mobility Comments Pt is SBA with FWW. Pt on 2L O2 94% trial of O2 on RA to be able to get to the sink and dropped to 90-91%. Pt able to increase to 93% with deep breathing exercises but quickly drops back to 90-91%/ O2 on 2L replaced as pt states feels better with O2 on and reading 93%. OT- Balance Assessment Sitting Balance and Reactions Static Sitting Balance Ability Normal Dynamic Sitting Balance Ability Normal Standing Balance and Reactions Static Standing Balance Ability Good M8 OT- IP Objective Assessments Start: 06/03/20 16:12 Freq: Status: Active Protocol: Document 06/03/20 16:12 [facility] (Rec: 06/03/20 16:29 [facility] [id number]) OT Gross Range of Motion Upper Extremity Range of Motion Assessment Within Functional Limits OT Strength Comments Strength Comments Right hand decreased due to history of fractured wrist. OT-Muscle Tone Assessment Muscle Tone WNL Yes M9 OT- IP Assessment and Plan Start: 06/03/20 16:12 Freq: Status: Active Protocol: Document 06/04/20 13:49 [facility] (Rec: 06/04/20 14:09 [facility] [id number]) OT Summary Assessment and Plan Potential Rehabilitation Potential Good Analytic Complexity at Evaluation Low Summary OT Impairments Functional Cognition, Functional Mobility,Dressing, Toileting,Bathing,Toilet Transfers,Shower Transfers, Activity Tolerance Progress Towards Goals Slow Progress due to Medical Issues,Slow Progress due to Activity Tolerance Assessment Summary Pt still on O2 at this time during the day. Spoke at length with pt regarding energy conservation and would be best to have a tub bench for home use to improve safety and independence. Goals Grooming Goal Independent Dressing Goal Independent Toileting Goal Independent Bathing Goal Independent Toilet Transfer Goal Independent Shower Transfer Goal Independent Patient/Caregiver Education Goal Demonstrate Post-Op Precautions Days to Meet Goals 5 Frequency of Treatment Frequency Of Treatment Once a Day Treatment Plan OT Treatment Plan ADL Training,Functional Mobility,Patient/Family Education,Discharge Planning Other Treatment Recommendations and Next shower Treatment Focus Discharge Recommendations OT Discharge Recommendations Home with Assistance Home Equipment Needs tub bench Transportation Needs at Discharge Private Vehicle
--- NOTE | 2020-06-04 14:27 | PC.NURSE ---
Patient 90-91% on Room Air, 93-94% on 2 liters. Lung sounds Dim, but clear throughout, and she has some SOB on exertion. Patient has no complaints of pain. Dr. Zaman gave a verbal order for fluid restriction 1500. Patient to have re-check of sodium level this afternoon. Bilateral non pitting edema in feet 1+.
[2020-06-04] MEDS: ACETAMINOPHEN 325 MG TABLET 650 MG PO (14:44)
[2020-06-04 15:03] LABS: BUN Creatinine Ratio 28.2 (6-22); Blood Urea Nitrogen 24 mg/dL (7-17); Calcium 8.9 mg/dL (8.4-10.2); Carbon Dioxide 25 mmol/L (22-32); Chloride 89 mmol/L (98-107); Estimated Glomerular Filt Rate > 60.0 mL/min (>60); Glucose 171 mg/dL (80-110); HEMOLYSIS < 15 (0-50); Potassium 3.8 mmol/L (3.4-5.1); Sodium 126 mmol/L (137-145)
[2020-06-04] MEDS: TIOTROPIUM BROMIDE 18 MCG INHALER INH ×2 (17:54→17:55)
[2020-06-04] MEDS: PHENobarbitaL 32.4 MG TABLET 64.8 MG PO (21:19)
[2020-06-04] MEDS: clonazePAM 0.5 MG TABLET 2 MG PO (21:19)
[2020-06-05] VITALS (9 sets, daily range): BP systolic 105–131; BP diastolic 45–87; PULSE 64–76; RESP 14–18; TEMP 36.3–36.9; O2SAT 90–97
[2020-06-05] MEDS: FUROSEMIDE 40 MG/4 ML VIAL IV ×3 (01:34→17:35)
[2020-06-05] MEDS: SODIUM CHLORIDE 0.9% FLUSH 10 ML IV ×4 (01:35→20:40)
--- NOTE | 2020-06-05 03:48 | PC.NURSE ---
Seen and assessed at 0130. Patient arouses easily but not verbal related to having CPAP on. Did use head gestures to answer yes/no questions. Breath sounds diminished throughout but CTA with sat of 93% using CPAP with 1L/min oxygen bled in; is on continuous oximetry. HRR. Denied nausea. BT present and is passing flatus. Has not yet voided this shift but has been continent and denied dysuria, frequency or urgency. Is able to move self in bed. Reportedly gets up to [facility] with walker and 1 assist due to LE weakness. Denied pain. Fall risk score is high and bed alarm is activated. Refuses SCD's so reminded to ankle wave when awake. Currently on fluid restriction.
[2020-06-05 05:21] LABS: Alanine Aminotransferase 147 IU/L (<35); Albumin 3.7 g/dL (3.5-5.0); Albumin Globulin Ratio 1.2 (1.0-2.8); Alkaline Phosphatase 230 U/L (38-126); Aspartate Aminotransferase 75 IU/L (14-36); BUN Creatinine Ratio 28.1 (6-22); Bilirubin Total 0.4 mg/dL (0.2-1.3); Blood Urea Nitrogen 27 mg/dL (7-17); Calcium 8.6 mg/dL (8.4-10.2); Carbon Dioxide 27 mmol/L (22-32); Chloride 93 mmol/L (98-107); Estimated Glomerular Filt Rate 55.6 mL/min (>60); Globulin 3.1 g/dL (1.7-4.1); Glucose 125 mg/dL (80-110); HEMOLYSIS < 15 (0-50); Potassium 3.9 mmol/L (3.4-5.1); Sodium 130 mmol/L (137-145); Total Protein 6.8 g/dL (6.3-8.2)
[2020-06-05] MEDS: LEVOTHYROXINE 125 MCG TABLET PO (06:34)
[2020-06-05] MEDS: LEVALBUTEROL HFA 200 PUFF INH INH ×2 (08:57→21:23)
[2020-06-05] MEDS: SALMETEROL 50 MCG DISKUS 1 PUFF INH ×2 (08:58→21:23)
[2020-06-05] MEDS: TIOTROPIUM BROMIDE 18 MCG INHALER INH (09:06)
[2020-06-05] MEDS: DABIGATRAN 75 MG CAPSULE 150 MG PO ×2 (09:43→20:39)
[2020-06-05] MEDS: ACETAMINOPHEN 325 MG TABLET 650 MG PO (09:43)
[2020-06-05] MEDS: CHOLECALCIFEROL (VITAMIN D3) 1,000 UNIT TABLET 2000 UNIT PO (09:44)
[2020-06-05] MEDS: ROSUVASTATIN 10 MG TABLET PO (09:44)
[2020-06-05] MEDS: POTASSIUM CHLORIDE 20 MEQ TAB PO ×2 (09:44→17:35)
[2020-06-05] MEDS: MAGNESIUM CHLORIDE 64 MG TABLET 128 MG PO (09:45)
--- NOTE | 2020-06-05 09:59 | PM.PN.1 ---
Subjective Subjective Date Patient Seen: 06/05/20 Time Patient Seen: 09:00 Interval history: The patient reports that she is feeling minimally improved from yesterday. She continues to need oxygen support during the day and night. She denies any cough. Her shortness of breath is slightly improved. She is encouraged that the swelling in her legs is decreased. Exam Vital Signs (past 8 hours): - 06/05/20 05:25 06/05/20 07:50 06/05/20 09:10 Temperature 98.5 F 97.4 F L Pulse Rate 74 66 71 Respiratory Rate 16 15 16 Blood Pressure 131/87 105/45 L Pulse Oximetry 93 95 91 06/05/20 09:28 Temperature Pulse Rate Respiratory Rate Blood Pressure Pulse Oximetry 90 L Oxygen Delivery Method Room Air Oxygen Flow Rate 1 Narrative Exam Narrative: GEN - alert, cooperative and no distress HEART - distant heart sounds, RRR, S1, S2 normal, no S3 or S4, no murmurs LUNGS - symmetric chest rise, no accessory muscles, no crackles or wheezes bilaterally, slightly decreased breath sounds throughout improved from yesterday ABD - nondistended, normal bowel sounds, soft, nontender and no hepatomegaly, splenomegaly or masses EXT - no cyanosis, clubbing or edema Objective Labs Result Diagrams: 06/04/20 05:28 06/05/20 04:46 Labs: Laboratory Results - last 24 hr 06/04/20 06/05/20 14:40 04:46 Sodium 126 L 130 L Potassium 3.8 3.9 Chloride 89 L 93 L Carbon Dioxide 25 27 BUN 24 H 27 H Creatinine 0.85 0.96 Estimated GFR > 60.0 55.6 L BUN/Creatinine Ratio 28.2 H 28.1 H Glucose 171 H 125 H Calcium 8.9 8.6 Total Bilirubin 0.4 AST 75 H ALT 147 H Alkaline Phosphatase 230 H Total Protein 6.8 Albumin 3.7 Globulin 3.1 Albumin/Globulin Ratio 1.2 Assessment & Plan Assessment & Plan narrative: Pt is an 84yo woman with hypertension, COPD, hyperlipidemia, hx of seizures, paroxysmal atrial fibrillation and 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 1) Acute respiratory failure: Likely due to acute diastolic heart failure (EF from 04/29 65%) with preserved EF with significantly elevated BNP and crackles on exam. COPD likely contributing as well. Pt received antibiotics in the ED due to elevated procalcitonin and WBC count, however CXR and Chest CT show no evidence of pneumonia, did not continue. Chest CT shows no PE. Respiratory status gradually improving, with decreased oxygen requirements. Hopeful can wean from daytime oxygen today. - Continue IV Lasix 40mg q8hr - Daily weights - Continue home inhalers - Duonebs PRN - Decrease IV steroids to daily dosing, plan to transition to PO tomorrow - Continue oxygen, titrate 2) Hyponatremia and hypokalemia: Hypokalemia resolved after potassium supplementation. Hyponatremia improving gradually, now to 130. - Aggressive diuresis to correct hyponatremia with IV Lasix. Continue to trend. - 20mEq PO Potassium BID, monitoring closely - Fluid restriction to 1500mL/day 3) Weakness: Most likely due to respiratory decompensation in addition to hyponatremia - PT/OT evaluation, cleared for home 4) Elevated liver enzymes: Most likely due to hepatic congestion from fluid overload. Minimally improved. - Continue to trend 5) Type II ND: Elevated troponin, now trending back down. No evidence of ischemia on EKG. Most likely due to CHF. - Repeat troponin if symptomatic 6) Hypothyroidism: - Continue home Levothyroxine 7) Hyperlipidemia: - Continue home Rosuvastatin 8) Hypertension: - Hold home HCTZ and Losartan for now 9) Atrial fibrillation: - Continue home Pradaxa FEN: Cardiac diet DVT: On anticoagulation Dispo: Pending improvement in respiratory status and adequate diuresis, in addition to improvement in hyponatremia. Pt should be able to d/c home, hopefully tomorrow. Quality VTE Deep Vein Thrombosis/Pulmonary Embolism Present on Admission: No
--- NOTE | 2020-06-05 11:45 | PT.IPTN ---
Current Diagnoses Hypo-osmolality and hyponatremia (06/04/20) Physical Therapy Treatment Note M2 PT-IP Current Condition Start: 06/03/20 13:36 Freq: NEEDED Status: Active Protocol: Document 06/03/20 14:24 [facility] (Rec: 06/03/20 14:58 [facility] [email or web address]) Physical Therapy Current Condition Current Condition Evaluation Date 06/03/20 Treatment Diagnosis acute resp failure, acute HF, difficulty in walking Onset Date 06/01/20 Precautions Other Precautions Pt uses 3L/min O2 at home. M3 PT-IP Subjective Start: 06/03/20 13:36 Freq: NEEDED Status: Active Protocol: Document 06/05/20 11:29 [facility] (Rec: 06/05/20 13:21 [facility] [email or web address]) Subjective Physical Therapy Visit Type Type Treatment Note Visit Start Time 11:29 Visit Stop Time 11:45 Total Visit Minutes 16 Number of SEED SERVICE ADVISOR Visits 1 Physical Therapy Visit Comments Patient Comments Pt agreeable to participate w/ therapy. Therapy Pain Assessment Pain When Pain Assessed During Mobility Pain Present Pain Present Denied Pain M4 PT-IP Mobility and Gait Start: 06/03/20 13:36 Freq: NEEDED Status: Active Protocol: Document 06/05/20 11:29 [facility] (Rec: 06/05/20 13:21 [facility] [email or web address]) PT-Bed Mobility Assessment Scooting Scooting to Edge of Bed Contact Guard Assistance PT-Transfer Assessment Sit to and From Stand Sit to and from Stand Contact Guard Assistance,1 Person Assistance,Use of Upper Extremities Equipment Transfer Assistive Device Gait Belt,Front Wheeled Walker Orthotic/Prosthetic Devices or Brace: No Transfers Transfer Destination Chair Transfer Technique pt ambulated w/ FWW Transfer Ability Level of Assist Contact Guard Assistance Comments Mobility Comments Pt in chair upon arrival from therapy, O2 92% on RA. Pt reported slight SOB, 2L O2 applied. Pt CGA for sit<>stand w/ FWW. Pt then ambulated ~40 ft around room on 2L O2 and denied SOB. Pt then completed 5x sit<>stand CGA. Reveiwed and instructed pt in LE exercises including ankle pumps, quad sets, glute sets, and heel slides. Pts O2 >94% throughout treatment on 2L. Pt requested to keep 2L on after treatment. Left in room w/ LARRY CAR OPERATOR entering. Gait Assessment Gait Gait Assistance Required: Standby Assistance,Contact Guard Assist Distance (Feet) 40 Able to Maintain Weight Bearing Status Yes During Gait Assistive Devices Assistive Device Gait Belt,Front Wheeled Walker Orthotic/Prosthetic Devices or Brace: No Gait Deviations General Gait Pattern Antalgic,Decreased Stride Length,Decreased Feet Clearance,Lateral Trunk Lean Factors Limiting Gait Function Factors Limiting Gait Function Decreased Activity Tolerance, Poor Balance,Poor Safety Awareness,Respiratory Distress Comments Gait Comments Please refer to mobility section for details. Stair Climbing Assessment Comments Stair Climbing Comments Not assessed. No stairs at home. PT-Balance Assessment Sitting Balance and Reactions Static Sitting Balance Ability Normal Dynamic Sitting Balance Ability Normal Standing Balance and Reactions Static Standing Balance Ability Good Dynamic Standing Balance Ability Fair Device Used no AD M5 PT-IP Objective Assessments Start: 06/03/20 13:36 Freq: NEEDED Status: Active Protocol: Document 06/03/20 14:24 [facility] (Rec: 06/03/20 14:58 [facility] [email or web address]) Orientation Orientation/Cognition Level of Alertness Alert Orientation Name,Month,Place,Situation Language Function Ability No Deficits Noted Safety Awareness Understands Safety Issues Memory Description No Deficits Noted Gross Range of Motion Lower Extremity ROM Assessment Within Functional Limits Strength Lower Extremity Strength Assessment Within Functional Limits Hip 4+/5 Knee 4+/5 Ankle 5/5 Comments Strength Comments Strength on MMT is WFL but pt is easily fatigable with mobility. Sensation Assessment Sensation Gross Sensation WNL Muscle Tone Muscle Tone WNL Yes M6 PT-IP Treatment Start: 06/03/20 13:36 Freq: NEEDED Status: Active Protocol: Document 06/05/20 11:29 [facility] (Rec: 06/05/20 13:21 [facility] [email or web address]) Physical Therapy Treatment Exercises Exercises Ankle Pumps,Gluteal Sets,Quad Sets,Heel Slides Education Education Provided Safety M7 PT-IP Assessment and Plan Start: 06/03/20 13:36 Freq: NEEDED Status: Active Protocol: Document 06/05/20 11:29 [facility] (Rec: 06/05/20 13:21 [facility] [email or web address]) PT Summary Assessment and Plan Potential Rehabilitation Potential Good Status of Condition at Evaluation Evolving Summary Impairments Pain,Balance,Transfers,Gait, Activity Tolerance Assessment Summary Pt SBA to CGA for transfers and ambulation w/ FWW. Pt demonstrated good use od FWW during ~40 ft ambulation, performed 5x sit<>stand, and LE strengthening exericses including ankle pumps, quad sets, glute sets, and heel slides, O2 >94% on 2L throughout treatment. Pt is mobilizing well and has good safety awareness and should be safe to return home when medically stable. Goals Bed Mobility Goal Independent Transfer Goal Independent Gait Goal Independent,Front Wheel Walker Gait Distance 100 Other Goals - improve ambulation to IND with SPC or without AD Days to Meet Goals 2 Frequency of Treatment Frequency Of Treatment Once a Day Treatment Plan Physical Therapy Treatment Plan Bed Mobility Training,Transfer Training,Gait Training, Therapeutic Exercise,Balance Retraining,Discharge Planning, Hot or Cold Pack,Neuromuscular Re-ed Other Recommendations and Next Treatment gait with or without SPC or Focus FWW as tolerated, monitor SpO2 ; assess bed mobility Recommendations To Nursing Amount of Assist Needed 1 Person Assist Discharge Recommendations PT Discharge Recommendations Home with Assistance Other Discharge Recommendations Home with assist vs home with assist and Transportation Needs at Discharge Private Vehicle
--- NOTE | 2020-06-05 12:09 | OT.IP.TRT ---
Current Diagnoses Hypo-osmolality and hyponatremia (06/04/20) Occupational Therapy Treatment Note M2 OT-IP Current Condition Start: 06/03/20 16:12 Freq: Status: Active Protocol: Document 06/03/20 16:12 [facility] (Rec: 06/03/20 16:29 [facility] [id number]) Occupational Therapy Current Condition Current Condition Evaluation Date 06/03/20 Treatment Diagnosis Acute Respiratory Failure Diagnosis Onset Date 06/03/20 M3 OT- IP Subjective and Pain Start: 06/03/20 16:12 Freq: Status: Active Protocol: Document 06/05/20 11:47 [facility] (Rec: 06/05/20 14:22 [facility] [id number]) OT- Subjective Occupational Therapy Visit Type Type Treatment Note Visit Start Time 11:47 Visit Stop Time 12:11 Total Visit Minutes 24 Occupational Therapy Visit Comments Patient Comments Pt wanting to use the toilet. Pt's present in the room. Patient/Caregiver Goals To go home tomorrow. OT Pain Assessment Pain When Pain Assessed At Rest Pain Present Pain Present Denied Pain M4 OT- IP ADL's Start: 06/03/20 16:12 Freq: Status: Active Protocol: Document 06/05/20 11:47 [facility] (Rec: 06/05/20 14:22 [facility] [id number]) OT BXM-Csky-Jvwlthh General Evaluation Self-Feeding Ability Independent OT ADL-Grooming General Evaluation Grooming Ability Independent Comments OT Grooming Comments while standing with FWW in front of her OT ADL-Oral Care General Eval Oral Care Ability Independent OT ADL-Dressing General Eval Lower Body Dressing Ability Independent OT ADL-Toileting General Evaluation Toileting Ability Standby Assistance Comments OT Toileting Comments Pt just needing set-up of wipes and afterwards able to do her own brief and hygiene management needs. OT ADL-Bathing Comments OT Bathing Comments Pt not wanting to shower. Gave pt 's information of tub bench which would make it safer for showering needs at home as they had a tub/shower combo at home. M5 OT- IP IADL's Start: 06/03/20 16:12 Freq: Status: Active Protocol: Document 06/03/20 16:12 [facility] (Rec: 06/03/20 16:29 [facility] [id number]) OT-Instrumental Activities of Daily Living Home Safety Awareness Awareness of Need for Assistance at Home Good Awareness Ability to Problem Solve Emergency Able to Problem Solve Situations Medication Management Medication Management No Deficits Identified Money Management Money Management No Deficits Identified Meal Preparation Meal Preparation Caregiver Provides Assist Front Desk Host Front Desk Host Caregiver Provides Assist Driving Driving Caregiver Provides Assist M6 OT- IP Functional Cognition Start: 06/03/20 16:12 Freq: Status: Active Protocol: Document 06/05/20 11:47 [facility] (Rec: 06/05/20 14:22 [facility] [id number]) Cognitive Factors Limiting Selfcare Function Cognitive Ability Level of Alertness Alert Patient Orientation Name,Place,Situation Attention Span Ability Capable of Focused Attention, Capable of Sustained Attention Ability to Follow Commands Able to Follow Multi-Step Commands Cognitive Comments Cognitive Assessment Comments Pt improved from yesterday and no deficits noted today for cognition. Pt able to show good safety management for O2 tubing while walking into and out of the bathroom. M7 OT- IP Mobility and Balance Start: 06/03/20 16:12 Freq: Status: Active Protocol: Document 06/05/20 11:47 [facility] (Rec: 06/05/20 14:22 [facility] [id number]) OT-Transfer Assessment Sit to and From Stand Sit to and from Stand Standby Assistance Transfers Transfer Ability Standby Assistance Devices Transfer Assistive Devices Gait Belt,Front Wheeled Walker Comments Mobility Comments SBA with FWW on 2L OT- Balance Assessment Sitting Balance and Reactions Static Sitting Balance Ability Normal Dynamic Sitting Balance Ability Normal Standing Balance and Reactions Static Standing Balance Ability Good M8 OT- IP Objective Assessments Start: 06/03/20 16:12 Freq: Status: Active Protocol: Document 06/03/20 16:12 [facility] (Rec: 06/03/20 16:29 [facility] [id number]) OT Gross Range of Motion Upper Extremity Range of Motion Assessment Within Functional Limits OT Strength Comments Strength Comments Right hand decreased due to history of fractured wrist. OT-Muscle Tone Assessment Muscle Tone WNL Yes M9 OT- IP Assessment and Plan Start: 06/03/20 16:12 Freq: Status: Active Protocol: Document 06/05/20 11:47 [facility] (Rec: 06/05/20 14:22 [facility] [id number]) OT Summary Assessment and Plan Potential Rehabilitation Potential Good Analytic Complexity at Evaluation Low Summary OT Impairments Functional Mobility,Dressing, Bathing,Activity Tolerance Progress Towards Goals Progressing Toward Goals Assessment Summary Pt Goals Grooming Goal Independent Dressing Goal Independent Toileting Goal Independent Bathing Goal Independent Toilet Transfer Goal Independent Shower Transfer Goal Independent Patient/Caregiver Education Goal Demonstrate Post-Op Precautions Days to Meet Goals 2 Frequency of Treatment Frequency Of Treatment Once a Day Treatment Plan OT Treatment Plan ADL Training,Functional Mobility,Patient/Family Education,Discharge Planning Other Treatment Recommendations and Next shower Treatment Focus Discharge Recommendations OT Discharge Recommendations Home with Assistance Home Equipment Needs tub bench Transportation Needs at Discharge Private Vehicle
[2020-06-05] MEDS: clonazePAM 0.5 MG TABLET 2 MG PO (20:37)
[2020-06-05] MEDS: PHENobarbitaL 32.4 MG TABLET 64.8 MG PO (20:39)
[2020-06-06 01:55] VITALS: BP 132/73; PULSE 73; RESP 16; TEMP 36.4; O2SAT 95
[2020-06-06] MEDS: SODIUM CHLORIDE 0.9% FLUSH 10 ML IV ×2 (01:56→08:41)
[2020-06-06] MEDS: FUROSEMIDE 40 MG/4 ML VIAL IV ×2 (01:56→08:41)
--- NOTE | 2020-06-06 02:18 | PC.NURSE ---
Addendum entered by Jolly Harrison R.N. 06/06/20 06:24: Weight down 3.5kg which is expected related to meds to diurese. Original Note: Patient is alert and oriented. Breath sounds CTA with sat of 95% using CPAP with oxygen bled in at 1L/min; denies SOB. Is on continuous oximetry. HR irregular; has hx of afib. Denies nausea. BT present and abdomen is soft. Denies dysuria, frequency or urgency with urination. Able to move self in bed and gets up to bathroom with SBA + walker. Denies pain. Continues on 1500cc fluid restriction. Fall risk score is high and bed alarm is activated
[2020-06-06 05:36] VITALS: BP 135/72; PULSE 85; RESP 16; TEMP 36.6; O2SAT 91
[2020-06-06 06:03] LABS: Alanine Aminotransferase 149 IU/L (<35); Albumin 3.6 g/dL (3.5-5.0); Albumin Globulin Ratio 1.2 (1.0-2.8); Alkaline Phosphatase 192 U/L (38-126); Aspartate Aminotransferase 70 IU/L (14-36); BUN Creatinine Ratio 29.6 (6-22); Bilirubin Total 0.4 mg/dL (0.2-1.3); Blood Urea Nitrogen 29 mg/dL (7-17); Calcium 8.7 mg/dL (8.4-10.2); Carbon Dioxide 33 mmol/L (22-32); Chloride 92 mmol/L (98-107); Estimated Glomerular Filt Rate 54.3 mL/min (>60); Globulin 3.1 g/dL (1.7-4.1); Glucose 91 mg/dL (80-110); HEMOLYSIS < 15 (0-50); Potassium 3.5 mmol/L (3.4-5.1); Sodium 132 mmol/L (137-145); Total Protein 6.7 g/dL (6.3-8.2)
[2020-06-06] MEDS: LEVOTHYROXINE 125 MCG TABLET PO (06:07)
[2020-06-06 07:45] VITALS: BP 129/65; PULSE 72; RESP 16; TEMP 36.6; O2SAT 94
[2020-06-06] MEDS: MAGNESIUM CHLORIDE 64 MG TABLET 128 MG PO (08:35)
--- NOTE | 2020-06-06 08:35 | P.DS_ITS ---
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 The pt reports that prog ressively throughout the entire summer she has been feeling more SOB. She has been using oxygen at home when sleeping with her CPAP machine for the past 3-4 months, previously never needing it. She is now up to 3L of oxygen at night. She has been unable to sleep due to feeling significant SOB when trying to lay down. She denies any significant cough, and states that she does wheeze occasionally but not all that often. She denies any recent chest pain or abdominal pain. She does feel that for the past several months the swelling in her legs has been worsening. The pts brought her to the ED yesterday due to her being significantly more weak than usual at home, and unable to walk well. The pt denies any sudden acute worsening of her SOB. Discharge Providers Provider Date of admission: 06/04/20 16:38 Discharge Date: 06/06/20 Primary care physician: Yris Zaman MD Consults: 06/03/20 13:20 Consult to Occupational Therapy Evaluate & Treat Comment: Physician Instructions: Evaluate and treat Consult to Physical Therapy Evaluate & Treat Comment: Physician Instructions: Evaluate and Treat Discharge provider: Yris Zaman MD Summary Hospital Course Discharge Diagnosis: Acute respiratory failure COPD exacerbation CHF exacerbation Acute hyponatremia Acute hypokalemia Weakness Elevated liver enzymes Type II UT Hypothyroidism Hyperlipidemia Hypertension Atrial fibrillation Hospital Course: 1) Acute respiratory failure: Likely due to acute diastolic heart failure (EF from 04/29 65%) with preserved EF with significantly elevated BNP and crackles on exam. COPD likely contributing as well. Pt received antibiotics in the ED due to elevated procalcitonin and WBC count, however CXR and Chest CT show no evidence of pneumonia, did not continue. Chest CT showed no PE. Respiratory status gradually improved with aggressive diuresis with IV Lasix in addition to IV steroids, which were tapered down during her hospitalization. At the time of discharge she was stable on 0-1L NC oxygen, and was evaluated for home O2 prior to d/c. The pts SOB was significantly improved, and she denied any cough. The pt diuresed nearly 7.5L while in the hospital. 2) Hyponatremia and hypokalemia: The pts hypokalemia resolved with PO supplementation. Her hyponatremia was thought to be due to volume overload, in addition to possibly HCTZ. She was diuresed aggressively with IV Lasix, and her sodium increased to 132. She will be discharged on PO Lasix and Potassium, with plans to repeat her BMP next week. She was fluid restricted in the hospital, and we discussed continuing this at home. 3) Weakness: Most likely due to respiratory decompensation in addition to hyponatremia. PT cleared for home discharge. 4) Elevated liver enzymes: Most likely due to hepatic congestion from fluid overload. Minimally improved during her hospitalization. Will continue to monitor as an outpatient 5) Type II UT: Elevated troponin, trended back down. No evidence of ischemia on EKG. Most likely due to CHF. No chest pain or other concerning symptoms during her hospitalization. 6) Hypertension: The pts home HCTZ and Losartan were held during her hospitalization. She will continue Losartan at home, but continue to hold her HCTZ. The pt will f/u in clinic in one week. Also recommend she have f/u with Cardiology. Status at Discharge Cognitive/behavioral status at discharge: oriented Functional status at discharge: uses cane/walker Overall status at discharge: patient is progressing back to baseline Time Spent with Patient Time spent: Greater than 30 minutes Exam Vital Signs (past 8 hours): - 06/06/20 01:55 06/06/20 05:36 06/06/20 07:45 Temperature 97.6 F 98 F 97.9 F Pulse Rate 73 85 72 Respiratory Rate 16 16 16 Blood Pressure 132/73 135/72 129/65 Pulse Oximetry 95 91 94 Oxygen Delivery Method Nasal Cannula,CPAP Oxygen Flow Rate 1 Narrative Exam Narrative: GEN - alert, cooperative and no distress HEART - distant heart sounds, RRR, S1, S2 normal, no S3 or S4, no murmurs LUNGS - symmetric chest rise, no accessory muscles, no crackles or wheezes bilaterally ABD - nondistended, normal bowel sounds, soft, nontender and no hepatomegaly, splenomegaly or masses EXT - no cyanosis, clubbing or edema Objective Labs Result Diagrams: 06/04/20 05:28 06/06/20 05:19 Labs: Laboratory Results - last 24 hr 06/06/20 05:19 Sodium 132 L Potassium 3.5 Chloride 92 L Carbon Dioxide 33 H BUN 29 H Creatinine 0.98 Estimated GFR 54.3 L BUN/Creatinine Ratio 29.6 H Glucose 91 Calcium 8.7 Total Bilirubin 0.4 AST 70 H ALT 149 H Alkaline Phosphatase 192 H Total Protein 6.7 Albumin 3.6 Globulin 3.1 Albumin/Globulin Ratio 1.2 Discharge Plan Discharge Plan Patient Disposition: Home Discharge comment: Please get your lab drawn before your appointment next week. Discharge orders & Medications Prescriptions: New potassium chloride [Klor-Con M20] 20 mEq Tablet,Er Particles/Crystals 20 meq PO BIDWM Qty: 60 RF: 0 prednisone 20 mg tablet See Rx Instructions .ROUTE .COMPLEX Qty: 18 RF: 0 Continued loratadine 10 mg tablet,disintegrating 10 mg PO DAILY RF: 0 Spacer: Inhaler Spacer Device PO BID Qty: 1 RF: 1 [VISION FORMULA] Qty: 0 RF: 0 [SUPER B COMPLEX] Qty: 0 RF: 0 multivitamin [Multiple Vitamins] 1 EACH tablet 1 tab PO QDAY Qty: 0 RF: 0 folic acid 400 mcg Tablet 400 mcg Qty: 0 RF: 0 (DME) Aerochamber Plus Flow-Vu spacer See Dose Instructions .ROUTE .MEDSUPPLY Qty: 1 RF: 0 Pradaxa 150 mg capsule 150 mg PO BID RF: 0 levalbuterol tartrate [Xopenex HFA] 45 mcg/actuation HFA aerosol inhaler 1 puff INHALATION Q6HP PRN (Reason: shortness of breath) Qty: 15 RF: 11 Serevent Diskus 50 mcg/dose blister with device See Rx Instructions .ROUTE .COMPLEX Qty: 60 RF: 2 phenobarbital 64.8 mg tablet 64.8 mg PO HS Qty: 90 RF: 1 furosemide 20 mg tablet 20 mg PO DAILY RF: 0 clonazepam 2 mg tablet 2 mg PO BEDTIME Qty: 90 RF: 1 tiotropium bromide [Spiriva Respimat] 2.5 mcg/actuation mist See Rx Instructions .ROUTE .COMPLEX Qty: 4 RF: 1 losartan 100 mg tablet 100 mg PO DAILY Qty: 90 RF: 3 levothyroxine [Synthroid] 125 mcg tablet 125 mcg PO QDAY Qty: 90 RF: 3 rosuvastatin 10 mg tablet 10 mg PO DAILY RF: 0 cholecalciferol (vitamin D3) 2,000 unit capsule 2,000 unit PO DAILY RF: 0 magnesium 250 mg tablet 250 mg PO DAILY RF: 0 (DME) Resmed Airsense 10 CPAP Qty: 1 RF: 0 Discontinued hydrochlorothiazide 50 mg tablet 50 mg PO DAILY RF: 0 felodipine 10 mg tablet extended release 24 hr 10 mg PO DAILY RF: 0 Follow up/Referrals: Yris Zaman MD [Primary Care Provider] - 06/13/20 3:15 pm (appt:06/13 @ 3:[address] zaman please arrive 15 minutes prior to your scheduled appontment ) Brandy Ferrer MD [Physician] - 1 Month (dr ferrer's nurse will call you with a 1 month hospital follow up appointment) Diet/Activity/Treatments Diet: Regular Visit Report/Discharge Packet Instructions: Potassium, Heart Failure, DI for Heart Failure, DI for Chronic Obstructive Pulmonary Disease, How to Prevent Falls, Prednisone Visit Report Forms: Patient Portal/API, Stroke Signs & Symptoms Discharge Data Primary Care Provider: Yris Zaman Discharges patient from system. Discharge Date/Time: 06/06/20 12:43 Quality VTE Deep Vein Thrombosis/Pulmonary Embolism Present on Admission: No
[2020-06-06] MEDS: ROSUVASTATIN 10 MG TABLET PO (08:40)
[2020-06-06] MEDS: ACETAMINOPHEN 325 MG TABLET 650 MG PO (08:40)
[2020-06-06] MEDS: DABIGATRAN 75 MG CAPSULE 150 MG PO (08:40)
[2020-06-06] MEDS: CHOLECALCIFEROL (VITAMIN D3) 1,000 UNIT TABLET 2000 UNIT PO (08:40)
[2020-06-06] MEDS: methylPREDNISolone 125 MG/2 ML VIAL 80 MG IV (08:41)
[2020-06-06] MEDS: POTASSIUM CHLORIDE 20 MEQ TAB PO (08:41)
[2020-06-06 09:24] VITALS: PULSE 81; RESP 14; O2SAT 98
[2020-06-06] MEDS: TIOTROPIUM BROMIDE 18 MCG INHALER INH (09:24)
[2020-06-06] MEDS: SALMETEROL 50 MCG DISKUS 1 PUFF INH (09:24)
[2020-06-06] MEDS: LEVALBUTEROL HFA 200 PUFF INH INH (09:24)
[2020-06-06 09:35] VITALS: O2SAT 92
--- NOTE | 2020-06-06 10:57 | PT.IPTN ---
Current Diagnoses Hypo-osmolality and hyponatremia (06/04/20) Physical Therapy Treatment Note M2 PT-IP Current Condition Start: 06/03/20 13:36 Freq: NEEDED Status: Active Protocol: Document 06/03/20 14:24 AW (Rec: 06/03/20 14:58 AW [email or web address]) Physical Therapy Current Condition Current Condition Evaluation Date 06/03/20 Treatment Diagnosis acute resp failure, acute HF, difficulty in walking Onset Date 06/01/20 Precautions Other Precautions Pt uses 3L/min O2 at home. M3 PT-IP Subjective Start: 06/03/20 13:36 Freq: NEEDED Status: Active Protocol: Document 06/06/20 10:41 KS (Rec: 06/06/20 13:26 KS [id number]) Subjective Physical Therapy Visit Type Type Treatment Note Visit Start Time 10:41 Visit Stop Time 10:57 Total Visit Minutes 16 Number of STONER HAND Visits 2 Physical Therapy Visit Comments Patient Comments Pt agreeable to participate w/ therapy. Therapy Pain Assessment Pain When Pain Assessed During Mobility Pain Present Pain Present Denied Pain M4 PT-IP Mobility and Gait Start: 06/03/20 13:36 Freq: NEEDED Status: Active Protocol: Document 06/06/20 10:41 KS (Rec: 06/06/20 13:26 KS [id number]) PT-Bed Mobility Assessment Scooting Scooting to Edge of Bed Contact Guard Assistance PT-Transfer Assessment Sit to and From Stand Sit to and from Stand Contact Guard Assistance,1 Person Assistance,Use of Upper Extremities Equipment Transfer Assistive Device Gait Belt,Front Wheeled Walker Orthotic/Prosthetic Devices or Brace: No Transfers Transfer Destination Chair Transfer Technique pt ambulated w/ FWW Transfer Ability Level of Assist Contact Guard Assistance Comments Mobility Comments Pt in chair upon arrival from therapy. 1.5 L O2 applied for mobility. Pt CGA for scooting to EOC and sit<>stand. Pt then ambulated ~50 ft around room w/ FWW and SBA w/ 1x standing rest break to assess O2. Pts O2 >93% on 1/5 L throughout treatment, however pt reported slight fatigue and SOB after ambulation, cues for pursed lip breathing. Pt requested to sit back in chair, O2 lowered to 1L and spO2 95%. Pt left in chair w/ all needs in reach . Gait Assessment Gait Gait Assistance Required: Standby Assistance Distance (Feet) 50 Able to Maintain Weight Bearing Status Yes During Gait Assistive Devices Assistive Device Gait Belt,Front Wheeled Walker Orthotic/Prosthetic Devices or Brace: No Gait Deviations General Gait Pattern Antalgic,Decreased Stride Length,Decreased Feet Clearance,Lateral Trunk Lean Factors Limiting Gait Function Factors Limiting Gait Function Decreased Activity Tolerance, Poor Balance,Poor Safety Awareness,Respiratory Distress Comments Gait Comments Please refer to mobility section for details. Stair Climbing Assessment Comments Stair Climbing Comments Not assessed. No stairs at home. PT-Balance Assessment Sitting Balance and Reactions Static Sitting Balance Ability Normal Dynamic Sitting Balance Ability Normal Standing Balance and Reactions Static Standing Balance Ability Good Dynamic Standing Balance Ability Good Device Used FWW M5 PT-IP Objective Assessments Start: 06/03/20 13:36 Freq: NEEDED Status: Active Protocol: Document 06/03/20 14:24 AW (Rec: 06/03/20 14:58 AW [email or web address]) Orientation Orientation/Cognition Level of Alertness Alert Orientation Name,Month,Place,Situation Language Function Ability No Deficits Noted Safety Awareness Understands Safety Issues Memory Description No Deficits Noted Gross Range of Motion Lower Extremity ROM Assessment Within Functional Limits Strength Lower Extremity Strength Assessment Within Functional Limits Hip 4+/5 Knee 4+/5 Ankle 5/5 Comments Strength Comments Strength on MMT is WFL but pt is easily fatigable with mobility. Sensation Assessment Sensation Gross Sensation WNL Muscle Tone Muscle Tone WNL Yes M6 PT-IP Treatment Start: 06/03/20 13:36 Freq: NEEDED Status: Active Protocol: Document 06/06/20 10:41 KS (Rec: 06/06/20 13:26 KS [id number]) Physical Therapy Treatment Education Education Provided Safety Other Treatments Other Treatment Performed Pursed lip breating/energy conservation M7 PT-IP Assessment and Plan Start: 06/03/20 13:36 Freq: NEEDED Status: Active Protocol: Document 06/06/20 10:41 KS (Rec: 06/06/20 13:26 KS [id number]) PT Summary Assessment and Plan Potential Rehabilitation Potential Good Status of Condition at Evaluation Evolving Summary Impairments Pain,Balance,Transfers,Gait, Activity Tolerance Assessment Summary Pt CGA for transfers, SBA for ambulation w/ FWW. Pt ambulated ~50 ft w/ FWW on 1.5 L O2 and SBA. Pts O2 >93% throughout treatment on 1.5L. Pt requested to sit after ~50 ft d/t fatigue and slight SOB and is limited by low tolerance for activity, but demonstrated good use of FWW which she agrees to use while ambulating at home. Goals Bed Mobility Goal Independent Transfer Goal Independent Gait Goal Independent,Front Wheel Walker Gait Distance 100 Other Goals - improve ambulation to IND with SPC or without AD Days to Meet Goals 2 Frequency of Treatment Frequency Of Treatment Once a Day Treatment Plan Physical Therapy Treatment Plan Bed Mobility Training,Transfer Training,Gait Training, Therapeutic Exercise,Balance Retraining,Discharge Planning, Hot or Cold Pack,Neuromuscular Re-ed Other Recommendations and Next Treatment gait with or without SPC or Focus FWW as tolerated, monitor SpO2 ; assess bed mobility Recommendations To Nursing Amount of Assist Needed 1 Person Assist Discharge Recommendations PT Discharge Recommendations Home with Assistance Other Discharge Recommendations Home with assist vs home with assist and Transportation Needs at Discharge Private Vehicle
--- NOTE | 2020-06-06 12:42 | CM.DPNOTE ---
IV removed, DC teaching reviewed with patient, all questions answered. Rxs esent and will be picked up on the way home. Into w/c for private vehicle.
--- NOTE | 2020-06-07 09:13 | CM.DPC ---
DCP: continued: late entry note for 06/06: Case received yesterday and discussed in Team Rounds. PT was planning to work with pt. A check in now shows that pt's PCP: Dr. Zaman did see her yesterday and ok'd her for home and clinic followup. PT did see pt and noted she was doing well for a d/c to home setting.
== END 2020-06-06 12:43 | disposition home or self-care (01) | DRG 280 ==
LOC: ED 23:38 → AC 06-03 00:24
PROVIDERS: Admitting Provider Internal Medicine; Emergency Provider Emergency Medicine; PCP Family Medicine; Visit Provider Family Medicine
DX: I11.0 Hypertensive heart disease with heart failure (principal); I50.31 Acute diastolic (congestive) heart failure; I21.A1 Myocardial infarction type 2; J96.01 Acute respiratory failure with hypoxia; E87.1 Hypo-osmolality and hyponatremia; J44.1 Chronic obstructive pulmonary disease with (acute) exacerbation; E87.6 Hypokalemia; I48.0 Paroxysmal atrial fibrillation; E03.9 Hypothyroidism, unspecified; I44.1 Atrioventricular block, second degree; R94.5 Abnormal results of liver function studies; R53.1 Weakness; E78.5 Hyperlipidemia, unspecified; Z95.0 Presence of cardiac pacemaker
CPT/HCPCS: 36415; 71045; 71275; 80048; 80053; 82550; 82553; 83880; 84145; 84484; 85025; 85379; 85610; 85730; 87635; 93005; 93010; 94640; 94760; 94762; 96365; 96375; 97116; 97161; 97165; 97530; 97535; 99219; 99222; 99232; 99238; 99284; G0378; J1940; J2920; J2930; Q9967

== ENCOUNTER → 2020-06-09 10:18 | Outpatient (CLI) | payer OTHER, SELFPAY ==
[2020-06-03 00:47] VITALS: BMI 31.6
[2020-06-09 11:26] LABS: BUN Creatinine Ratio 20.2 (6-22); Blood Urea Nitrogen 17 mg/dL (7-17); Calcium 9.1 mg/dL (8.4-10.2); Carbon Dioxide 24 mmol/L (22-32); Chloride 100 mmol/L (98-107); Estimated Glomerular Filt Rate > 60.0 mL/min (>60); Glucose 114 mg/dL (80-110); HEMOLYSIS < 15 (0-50); Potassium 4.1 mmol/L (3.4-5.1); Sodium 133 mmol/L (137-145)
== END ==
PROVIDERS: PCP Family Medicine; Referring Provider Family Medicine; Visit Provider Family Medicine
DX: I10 Essential (primary) hypertension (principal); I44.1 Atrioventricular block, second degree
CPT/HCPCS: 36415; 80048

== ENCOUNTER 2020-06-16 03:00 | Emergency (ER) | payer OTHER, SELFPAY ==
[2020-06-03 00:47] VITALS: BMI 31.6
[2020-06-16] VITALS (9 sets, daily range): BP systolic 143–172; BP diastolic 66–76; PULSE 17–102; RESP 15–25; TEMP 37.5; O2SAT 96–97; BMI 30.9
--- NOTE | 2020-06-16 03:02 | ED_ITS ---
HPI - Abdominal Pain General Chief Complaint: Chest Pain Stated Complaint: Abd Pain Time Seen by Provider: 06/16/20 03:02 Source: patient, family and EMS Mode of arrival: EMS Limitations: no limitations History of Present Illness HPI narrative: Five 84-year-old female with history of hypertension, COPD, hyperlipidemia, seizures, AFib and pacemaker presents with exertional dyspnea and fatigue as well as a brief episode of mid abdominal pain. She uses 1 L of oxygen at night and has not required any additional oxygen. She denies fever, cough, N/V, swelling legs, or other. Her abdominal pain woke her up and was p eriumbilical in location. She denies any provocation, palliation, or radiation and states her symptoms had resolved in about 15 minutes and were gone by her arrival here. She is not dizzy or lightheaded. Related Data Home Medications Medication Instructions Recorded Confirmed [SUPER B COMPLEX] #0 06/24/17 06/11/20 [VISION FORMULA] #0 06/24/17 06/11/20 folic acid 400 mcg #0 06/24/17 06/11/20 multivitamin [Multiple Vitamins] 1 tab PO QDAY #0 06/24/17 06/11/20 cholecalciferol (vitamin D3) 50 2,000 unit PO DAILY 12/15/18 06/11/20 mcg (2,000 unit) capsule magnesium 250 mg tablet 250 mg PO DAILY 12/15/18 06/11/20 rosuvastatin 10 mg tablet 10 mg PO DAILY 12/15/18 06/11/20 Resmed Airsense 10 CPAP #1 ea 02/13/19 06/11/20 loratadine 10 mg disintegrating 10 mg PO DAILY 06/01/19 06/11/20 tablet dabigatran etexilate 150 mg capsule 150 mg PO BID 09/20/19 06/11/20 furosemide 20 mg tablet 20 mg PO DAILY 04/04/20 06/11/20 hydralazine 50 mg tablet 50 mg PO TID 06/11/20 06/11/20 Previous Rx's Medication Instructions Recorded Spacer: Inhaler Spacer Device ea PO BID #1 06/06/17 inhalational spacing device #1 each 01/05/19 levalbuterol tartrate 45 1 puff INHALATION Q6HP PRN #15 gm 12/10/19 mcg/actuation aerosol inhaler phenobarbital 64.8 mg tablet 64.8 mg PO HS #90 tab 03/31/20 clonazepam 2 mg tablet 2 mg PO BEDTIME #90 tab 04/21/20 levothyroxine 125 mcg tablet 125 mcg PO QDAY #90 tab 06/03/20 losartan 100 mg tablet 100 mg PO DAILY #90 tab 06/03/20 potassium chloride [Klor-Con M20] 20 meq PO BIDWM #60 tab 06/06/20 prednisone See Rx Instructions .ROUTE 06/06/20 .COMPLEX #18 tab salmeterol 50 mcg/dose blister See Rx Instructions .ROUTE 06/11/20 powder for inhalation .COMPLEX #60 unspecified tiotropium bromide 2.5 See Rx Instructions .ROUTE 06/11/20 mcg/actuation mist for inhalation .COMPLEX #4 gram Allergies Allergy/AdvReac Type Severity Reaction Status Date / Time atenolol [ATENOLOL] Allergy Mild COUGH Verified 06/11/20 13:53 phenindamine [PHENINDAMINE] Allergy Unknown Verified 06/11/20 13:53 pseudoephedrine Allergy Unknown Verified 06/11/20 13:53 [PSEUDOEPHEDRINE] caffeine AdvReac Intermediate panic Verified 06/11/20 13:53 attacks amlodipine AdvReac Mild dizzy Verified 06/11/20 13:53 lisinopril AdvReac Mild cough Verified 06/11/20 13:53 terazosin AdvReac Mild dizzy Verified 06/11/20 13:53 verapamil AdvReac Mild dizzy Verified 06/11/20 13:53 alendronate sodium AdvReac Verified 06/11/20 13:53 [From Fosamax] cetirizine AdvReac Verified 06/11/20 13:53 fexofenadine AdvReac Verified 06/11/20 13:53 Review of Systems Constitutional Constitutional: Denies chills, Denies fatigue, Denies fever(s), Denies frequent falls, Denies lethargy and Denies weakness Eyes Eyes: Denies change in vision, Denies eye discharge, Denies irritation and Denies loss of vision ENT Ears, Nose, Mouth, and Throat: Denies change in voice, Denies dizziness, Denies neck pain, Denies sore throat and Denies throat swelling Cardiovascular Cardiovascular: Denies chest pain, Denies irregular heart rhythm, Denies lightheadedness, Denies palpitations, Denies dyspnea, Denies dyspnea on exertion and Denies orthopnea Respiratory Respiratory: Denies cough, Denies dyspnea, Denies dyspnea on exertion and Denies wheezing Gastrointestinal Gastrointestinal: Reports abdominal pain, Denies change in bowel habits, Denies diarrhea, Denies nausea and Denies vomiting Musculoskeletal Musculoskeletal: Denies neck pain and Denies numbness Integumentary/Breasts Skin/Breast: Denies pruritus, Denies erythema, Denies rash and Denies wounds Neurologic Neurologic: Denies behavioral changes, Denies confusion, Denies dizziness, Denies frequent falls, Denies loss of vision, Denies numbness and Denies weakness Psychiatric Psychiatric: Denies anxiety, Denies behavioral changes, Denies confusion, Denies depression, Denies homicidal ideation and Denies suicidal ideation Endocrine Endocrine: Denies fatigue, Denies flushing and Denies palpitations Hematologic/Lymphatic Hematologic/Lymphatic: Denies easy bruising Allergic/Immunologic Allergic/Immunologic: Denies urticaria, Denies throat swelling and Denies wheezing Patient History Medical History AAA (abdominal aortic aneurysm) (Chronic) Actinic keratosis (Chronic) Chicken pox (Resolved 194) Chronic back pain (Chronic 1955) COPD (chronic obstructive pulmonary disease) (Chronic) DVT (deep venous thrombosis) (Resolved) Facet arthropathy, lumbar (Acute) Fracture of left patella (Resolved 2009) Fracture of right wrist (Resolved 2009) Hypertension (Chronic) Hypothyroidism (Chronic) Lumbar stenosis (Acute) Osteoarthritis (Chronic 2009) Osteoporosis (Chronic) Retinal detachment (Resolved 2011) RLS (restless legs syndrome) (Chronic 1959) SCCA (squamous cell carcinoma) of skin (Resolved 2000) Seizures (Chronic 1953) Skin cancer (Resolved 2000) Tinnitus (Chronic) Surgical History Anesthesia (Resolved) History of cataract removal with insertion of prosthetic lens (Resolved 2013) History of left knee surgery (Resolved 2009) History of squamous cell carcinoma excision (Resolved 2000) Status post cholecystectomy (Resolved 2004) Status post wrist surgery (Resolved 2009) Family History Brother Age: 78 Stroke Father Stroke Grandfather Heart disease Grandmother Stroke Mother Mental health problem Grandmother Stroke Grandfather No problems noted. Social History marital status: number of children: 2 household members: spouse lives independently: Yes caregiver/support person: No housing: house Smoking Status: Former smoker second hand exposure: No alcohol intake: never substance use type: does not use Smoking Status: Former smoker alcohol intake frequency: holidays/special occasions only Substance Use Type: does not use Exam Narrative Exam Narrative: GENERAL: [84] year old patient appears stated age. Well- nourished, well-developed patient, in mild distress. HEAD: Atraumatic. Normocephalic. EYES: Pupils equal round and reactive. Extraocular motions intact. No scleral icterus. No injection or drainage. ENT: Nose without bleeding, purulent drainage. Throat without erythema, tonsillar hypertrophy or exudate. Airway patent. NECK: Trachea midline. Non tender CARDIOVASCULAR: Regular rate and rhythm without murmurs, gallops, or rubs. RESPIRATORY: Clear to auscultation. Breath sounds equal bilaterally. No wheezes, rales, or rhonchi. GASTROINTESTINAL: Abdomen soft, non-tender, nondistended. EXTREMITIES: No edema or joint tenderness. BACK: Nontender without deformity or crepitance. No flank tenderness. NEURO: AOx3. SKIN: No rash or erythema of visible areas Initial Vital Signs Initial Vital Signs: Vital Signs Temperature 99.5 F 06/16/20 03:09 Pulse Rate 102 H 06/16/20 03:09 Respiratory Rate 20 06/16/20 03:09 Blood Pressure 160/73 H 06/16/20 03:09 Pulse Oximetry 96 06/16/20 03:09 Course Orders Ordered: ED Orders 06/16/20 03:00 Complete Blood Count AUTO DIFF Stat Comprehensive Metabolic Panel Stat Lipase Stat NT-proBNP (BNP-Adult 18+) Stat Procalcitonin Stat Troponin & CK Cardiac Panel Stat 06/16/20 03:13 XR chest 1V Stat EKG-12 Lead Stat 06/16/20 05:25 Troponin I Stat Discontinued Medications Aspirin (Aspirin Chew) 324 mg PO NOW ONE Stop: 06/16/20 03:14 Last Admin: 06/16/20 03:17 Dose: 324 mg Documented by: RENETTA Vital Signs Vital signs: Vital Signs - 8 hr 06/16/20 03:09 06/16/20 03:16 06/16/20 03:30 Temperature 99.5 F Pulse Rate 102 H 90 91 H Respiratory Rate 20 17 17 Blood Pressure 160/73 H 172/76 H Pulse Oximetry 96 96 96 06/16/20 04:00 06/16/20 04:01 06/16/20 04:30 Temperature Pulse Rate 87 88 84 Respiratory Rate 15 15 17 Blood Pressure 148/66 H 152/67 H Pulse Oximetry 97 96 96 06/16/20 05:00 06/16/20 05:30 Temperature Pulse Rate 83 79 Respiratory Rate 16 25 H Blood Pressure 148/68 H 143/68 H Pulse Oximetry 97 97 MDM - Abdominal Pain Lab Data Result diagrams: 06/16/20 03:00 06/16/20 03:00 Labs: Lab Results 06/16/20 06/16/20 06/16/20 Range/Units 03:00 03:00 03:00 WBC 15.0 H (4.5-11.0) X10^3/uL RBC 4.75 (4.0-5.2) X10^6/uL Hgb 13.5 (12.0-16.0) g/dL Hct 40.9 (36-46) % MCV 86.0 (80-100) fL MCH 28.4 (26-34) PG MCHC 33.1 (30-36) % RDW 15.3 H (11.6-14.8) % Plt Count 345 (150-400) X10^3/uL Neut % (Auto) 71.7 (50-75) % Lymph % (Auto) 10.5 L (25-40) % [place] % (Auto) 8.4 (3-14) % Eos % (Auto) 8.5 H (2-4) % Baso % (Auto) 0.9 (0-2) % Neut # (Auto) 17558 H (3227-3785) /uL Lymph # (Auto) 1600 (0695-3191) /uL [place] # (Auto) 1300 H (0-900) /uL Eos # (Auto) 1300 H (0-450) /uL Baso # (Auto) 100 (0-100) /uL Sodium 135 L (137-145) mmol/L Potassium 4.4 (3.4-5.1) mmol/L Chloride 102 (98-107) mmol/L Carbon Dioxide 26 (22-32) mmol/L BUN 17 (7-17) mg/dL Creatinine 0.86 (0.52-1.04) mg/dL Estimated GFR > 60.0 (>60) mL/min BUN/Creatinine Ratio 19.8 (6-22) Glucose 103 (80-110) mg/dL Calcium 9.5 (8.4-10.2) mg/dL Total Bilirubin 0.4 (0.2-1.3) mg/dL AST 30 (14-36) IU/L ALT 38 H (<35) IU/L Alkaline Phosphatase 129 H (38-126) U/L Total Creatine Kinase 37 (30-135) U/L CK-MB (CK-2) TNP CK-MB (CK-2) Rel Index TNP Troponin I 0.027 (0.01-0.034) ng/mL NT-Pro-B Natriuret Pep 393 (<450) pg/mL Total Protein 7.6 (6.3-8.2) g/dL Albumin 4.2 (3.5-5.0) g/dL Globulin 3.4 (1.7-4.1) g/dL Albumin/Globulin Ratio 1.2 (1.0-2.8) Lipase 248 (23-300) U/L Procalcitonin 0.21 (<0.5) ng/mL 06/16/20 Range/Units 05:25 WBC (4.5-11.0) X10^3/uL RBC (4.0-5.2) X10^6/uL Hgb (12.0-16.0) g/dL Hct (36-46) % MCV (80-100) fL MCH (26-34) PG MCHC (30-36) % RDW (11.6-14.8) % Plt Count (150-400) X10^3/uL Neut % (Auto) (50-75) % Lymph % (Auto) (25-40) % [place] % (Auto) (3-14) % Eos % (Auto) (2-4) % Baso % (Auto) (0-2) % Neut # (Auto) (1844-4926) /uL Lymph # (Auto) (9433-5696) /uL [place] # (Auto) (0-900) /uL Eos # (Auto) (0-450) /uL Baso # (Auto) (0-100) /uL Sodium (137-145) mmol/L Potassium (3.4-5.1) mmol/L Chloride (98-107) mmol/L Carbon Dioxide (22-32) mmol/L BUN (7-17) mg/dL Creatinine (0.52-1.04) mg/dL Estimated GFR (>60) mL/min BUN/Creatinine Ratio (6-22) Glucose (80-110) mg/dL Calcium (8.4-10.2) mg/dL Total Bilirubin (0.2-1.3) mg/dL AST (14-36) IU/L ALT (<35) IU/L Alkaline Phosphatase (38-126) U/L Total Creatine Kinase (30-135) U/L CK-MB (CK-2) CK-MB (CK-2) Rel Index Troponin I 0.030 (0.01-0.034) ng/mL NT-Pro-B Natriuret Pep (<450) pg/mL Total Protein (6.3-8.2) g/dL Albumin (3.5-5.0) g/dL Globulin (1.7-4.1) g/dL Albumin/Globulin Ratio (1.0-2.8) Lipase (23-300) U/L Procalcitonin (<0.5) ng/mL Discharge Plan Departure Patient Disposition: Home Clinical Impression: Abdominal pain Qualifiers: Abdominal location: periumbilical Qualified Code(s): R10.33 - Periumbilical pain Instructions: DI for Abdominal Pain-Adult Activity Restrictions/Additional Instructions: *You have been diagnosed with [periumbilical pain, resolved. Your labs, physical exam, and xray are very reassuring] *What to do: *Continue to take medications as directed *Follow up with your primary care provider in 2-3 days, call for an appointment. Let them know you were seen in the Emergency Department and that we ask that you be seen in follow up *Return to ER if you should have any new, worsening or concerning symptoms, such as recurrence of abdominal pain, fever over 101 F, vomiting, chest pain, increasing shortness of breath, or other bothersome symptoms Prescriptions: No Action loratadine 10 mg tablet,disintegrating 10 mg PO DAILY RF: 0 Spiriva Respimat 2.5 mcg/actuation mist See Rx Instructions .ROUTE .COMPLEX Qty: 4 RF: 6 Serevent Diskus 50 mcg/dose blister with device See Rx Instructions .ROUTE .COMPLEX Qty: 60 RF: 6 Spacer: Inhaler Spacer Device PO BID Qty: 1 RF: 1 [VISION FORMULA] Qty: 0 RF: 0 [SUPER B COMPLEX] Qty: 0 RF: 0 multivitamin [Multiple Vitamins] 1 EACH tablet 1 tab PO QDAY Qty: 0 RF: 0 folic acid 400 mcg Tablet 400 mcg Qty: 0 RF: 0 (DME) Aerochamber Plus Flow-Vu spacer See Dose Instructions .ROUTE .MEDSUPPLY Qty: 1 RF: 0 Pradaxa 150 mg capsule 150 mg PO BID RF: 0 levalbuterol tartrate [Xopenex HFA] 45 mcg/actuation HFA aerosol inhaler 1 puff INHALATION Q6HP PRN (Reason: shortness of breath) Qty: 15 RF: 11 phenobarbital 64.8 mg tablet 64.8 mg PO HS Qty: 90 RF: 1 furosemide 20 mg tablet 20 mg PO DAILY RF: 0 clonazepam 2 mg tablet 2 mg PO BEDTIME Qty: 90 RF: 1 losartan 100 mg tablet 100 mg PO DAILY Qty: 90 RF: 3 levothyroxine [Synthroid] 125 mcg tablet 125 mcg PO QDAY Qty: 90 RF: 3 hydralazine 50 mg tablet 50 mg PO TID RF: 0 rosuvastatin 10 mg tablet 10 mg PO DAILY RF: 0 cholecalciferol (vitamin D3) 2,000 unit capsule 2,000 unit PO DAILY RF: 0 magnesium 250 mg tablet 250 mg PO DAILY RF: 0 potassium chloride [Klor-Con M20] 20 mEq Tablet,Er Particles/Crystals 20 meq PO BIDWM Qty: 60 RF: 0 prednisone 20 mg tablet See Rx Instructions .ROUTE .COMPLEX Qty: 18 RF: 0 (DME) Resmed Airsense 10 CPAP Qty: 1 RF: 0 Referrals: Yris Zaman MD [Primary Care Provider] -
--- NOTE | 2020-06-16 03:13 | DI.RAD.S_ITS ---
PROCEDURE: XR CHEST 1V INDICATIONS: SOB, CP TECHNIQUE: One view of the chest was acquired. COMPARISON: [facility], CR, XR CHEST 1V, 06/02/2020, 21:21. FINDINGS: Surgical changes and devices: Dual lead left chest wall cardiac pacer is stable. Lungs and pleura: Lungs are clear. No pleural effusions or pneumothorax. Mediastinum: Mediastinal contours appear normal. Heart size is normal. Bones and chest wall: No suspicious bony lesions. Overlying soft tissues appear unremarkable. IMPRESSION: No acute cardiopulmonary disease process. Dictated by: Sepideh Vega MD, PhD on 06/16/2020 at 8:58 Approved by: Sepideh Vega MD, PhD on 06/16/2020 at 8:59
[2020-06-16] MEDS: ASPIRIN 81 MG CHEW TAB 324 MG PO (03:17)
[2020-06-16 03:29] LABS: Add Manual Diff / Slide Review NO; Basophils Absolute Auto 100 /uL (0-100); Basophils Percent Auto 0.9 % (0-2); Eosinophils Absolute Auto 1300 /uL (0-450); Eosinophils Percent Auto 8.5 % (2-4); Hematocrit 40.9 % (36-46); Hemoglobin 13.5 g/dL (12.0-16.0); Lymphocytes Absolute Auto 1600 /uL (1100-4500); Lymphocytes Percent Auto 10.5 % (25-40); Mean Corpuscular HGB Conc 33.1 % (30-36); Mean Corpuscular Hemoglobin 28.4 PG (26-34); Monocytes Absolute Auto 1300 /uL (0-900); Monocytes Percent Auto 8.4 % (3-14); Neutrophils Absolute Auto 10700 /uL (1500-7000); Neutrophils Percent Auto 71.7 % (50-75); Platelet Count 345 X10^3/uL (150-400); Red Blood Cell Count 4.75 X10^6/uL (4.0-5.2); Red Cell Distribution Width 15.3 % (11.6-14.8)
[2020-06-16 03:41] LABS: Alanine Aminotransferase 38 IU/L (<35); Albumin 4.2 g/dL (3.5-5.0); Albumin Globulin Ratio 1.2 (1.0-2.8); Alkaline Phosphatase 129 U/L (38-126); Aspartate Aminotransferase 30 IU/L (14-36); BUN Creatinine Ratio 19.8 (6-22); Bilirubin Total 0.4 mg/dL (0.2-1.3); Blood Urea Nitrogen 17 mg/dL (7-17); Calcium 9.5 mg/dL (8.4-10.2); Carbon Dioxide 26 mmol/L (22-32); Chloride 102 mmol/L (98-107); Creatine Kinase 37 U/L (30-135); Estimated Glomerular Filt Rate > 60.0 mL/min (>60); Globulin 3.4 g/dL (1.7-4.1); Glucose 103 mg/dL (80-110); HEMOLYSIS 15 (0-50); Lipase 248 U/L (23-300); Potassium 4.4 mmol/L (3.4-5.1); Procalcitonin 0.21 ng/mL (<0.5); Sodium 135 mmol/L (137-145); Total Protein 7.6 g/dL (6.3-8.2)
[2020-06-16 03:52] LABS: NT-proBNP (BNP-Adult 18+) 393 pg/mL (<450); Troponin I 0.027 ng/mL (0.01-0.034)
== END 2020-06-16 06:29 | disposition home or self-care (01) ==
PROVIDERS: Emergency Provider Emergency Medicine; PCP Family Medicine
DX: R10.33 Periumbilical pain (principal); R07.9 Chest pain, unspecified; I10 Essential (primary) hypertension; J44.9 Chronic obstructive pulmonary disease, unspecified; E78.5 Hyperlipidemia, unspecified; I48.91 Unspecified atrial fibrillation; Z95.0 Presence of cardiac pacemaker
CPT/HCPCS: 36415; 71045; 80053; 82550; 83690; 83880; 84145; 84484; 85025; 93005; 99284

== ENCOUNTER → 2020-06-27 09:27 | Outpatient (CLI) | payer OTHER, SELFPAY ==
[2020-06-03 00:47] VITALS: BMI 31.6
[2020-06-27 11:48] LABS: BUN Creatinine Ratio 12.1 (6-22); Blood Urea Nitrogen 8 mg/dL (7-17); Calcium 9.4 mg/dL (8.4-10.2); Carbon Dioxide 26 mmol/L (22-32); Chloride 102 mmol/L (98-107); Estimated Glomerular Filt Rate > 60.0 mL/min (>60); Glucose 135 mg/dL (80-110); HEMOLYSIS < 15 (0-50); Potassium 4.4 mmol/L (3.4-5.1); Sodium 137 mmol/L (137-145)
[2020-06-27 12:29] LABS: Vitamin B12 633 pg/mL (239-931)
== END ==
PROVIDERS: PCP Family Medicine; Referring Provider Internal Medicine Cardiovascular Disease; Visit Provider Internal Medicine Cardiovascular Disease
DX: I10 Essential (primary) hypertension (principal); E87.1 Hypo-osmolality and hyponatremia; G62.9 Polyneuropathy, unspecified
CPT/HCPCS: 36415; 80048; 82607

== ENCOUNTER → 2020-06-27 09:45 | Outpatient (CLI) | payer OTHER, SELFPAY ==
[2020-06-03 00:47] VITALS: BMI 31.6
--- NOTE | 2020-06-27 09:46 | DI.RAD.S_ITS ---
PROCEDURE: XR HIP W PEL IF DONE LT MIN 4V INDICATIONS: bilateral hip pain TECHNIQUE: AP pelvis with lateral view(s) of the right and left hip(s). COMPARISON: [facility], CT, CT LUMBAR SPINE WO CON, 03/27/2020, 13:24. [facility], CR, HIP 2V LEFT, 04/06/2012, 15:05. FINDINGS: Bones: No fractures or dislocations. Bilateral symmetric joint space narrowing. Acetabular roof sclerosis. Small osteophytes. 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 No avascular necrosis of the femoral heads. Pelvic ring appears intact. No suspicious bony lesions. Soft tissues: The visualized bowel gas pattern is normal. No suspicious soft tissue calcifications. IMPRESSION: [id number] bilateral hip DJD. Dictated by: Roger Osborne M.D. on 06/27/2020 at 10:24 Approved by: Roger Osborne M.D. on 06/27/2020 at 10:28
== END ==
PROVIDERS: PCP Family Medicine; Referring Provider Family Medicine; Visit Provider Family Medicine
DX: M25.551 Pain in right hip (principal); M25.552 Pain in left hip; M16.0 Bilateral primary osteoarthritis of hip
CPT/HCPCS: 73522

== ENCOUNTER → 2020-07-07 10:24 | Outpatient (CLI) | payer OTHER, SELFPAY ==
[2020-06-03 00:47] VITALS: BMI 31.6
[2020-07-07 12:57] LABS: BUN Creatinine Ratio 17.8 (6-22); Blood Urea Nitrogen 13 mg/dL (7-17); Calcium 9.6 mg/dL (8.4-10.2); Carbon Dioxide 26 mmol/L (22-32); Chloride 103 mmol/L (98-107); Estimated Glomerular Filt Rate > 60.0 mL/min (>60); Glucose 161 mg/dL (80-110); HEMOLYSIS < 15 (0-50); Sodium 137 mmol/L (137-145)
== END ==
PROVIDERS: PCP Family Medicine; Referring Provider Internal Medicine Cardiovascular Disease; Visit Provider Internal Medicine Cardiovascular Disease
DX: I50.32 Chronic diastolic (congestive) heart failure (principal)
CPT/HCPCS: 36415; 80048

== ENCOUNTER → 2020-08-14 08:02 | Outpatient (CLI) | payer OTHER, SELFPAY ==
[2020-06-03 00:47] VITALS: BMI 31.6
[2020-08-14 08:58] LABS: Hemoglobin A1C% w Est Avg Glu 5.9 % (4.0-6.0)
[2020-08-14 09:06] LABS: Blood Urea Nitrogen 17 mg/dL (7-17); Calcium 9.5 mg/dL (8.4-10.2); Carbon Dioxide 28 mmol/L (22-32); Chloride 105 mmol/L (98-107); Estimated Glomerular Filt Rate > 60.0 mL/min (>60); Glucose 106 mg/dL (80-110); HEMOLYSIS < 15 (0-50); Potassium 3.9 mmol/L (3.4-5.1); Sodium 139 mmol/L (137-145)
== END ==
PROVIDERS: PCP Family Medicine; Referring Provider Internal Medicine Cardiovascular Disease; Visit Provider Internal Medicine Cardiovascular Disease
DX: I48.0 Paroxysmal atrial fibrillation (principal); R73.9 Hyperglycemia, unspecified
CPT/HCPCS: 36415; 80048; 83036

== ENCOUNTER → 2020-08-20 14:02 | Outpatient (CLI) | payer OTHER, SELFPAY ==
[2020-06-03 00:47] VITALS: BMI 31.6
--- NOTE | 2020-08-20 | DI.RAD.S_ITS ---
PROCEDURE: XR CHEST 2V INDICATIONS: Chronic heart failure w/preserved ejection fractio TECHNIQUE: 2 views of the chest were acquired. COMPARISON: [facility], CR, XR CHEST 1V, 06/16/2020, 3:26. FINDINGS: Surgical changes and devices: Cardiac pacer is unchanged. Lungs and pleura: Lungs are clear. No pleural effusions or pneumothorax. Mediastinum: Mediastinal contours are normal. Heart size is normal. Bones and chest wall: No suspicious bony abnormalities. Soft tissues appear unremarkable. IMPRESSION: No acute cardiopulmonary findings. Specifically, no findings to suggest congestive failure. Dictated by: Tonya Lucas M.D. on 08/20/2020 at 15:57 Approved by: Tonya Lucas M.D. on 08/20/2020 at 15:57
[2020-08-20 15:24] LABS: NT-proBNP (BNP-Adult 18+) 103 pg/mL (<450)
== END ==
PROVIDERS: PCP Family Medicine; Referring Provider Internal Medicine Cardiovascular Disease; Visit Provider Internal Medicine Cardiovascular Disease
DX: I50.32 Chronic diastolic (congestive) heart failure (principal); R06.01 Orthopnea
CPT/HCPCS: 36415; 71046; 83880

== ENCOUNTER → 2020-09-16 12:43 | Outpatient (CLI) | payer OTHER, SELFPAY ==
[2020-06-03 00:47] VITALS: BMI 31.6
== END ==
PROVIDERS: PCP Family Medicine; Referring Provider Family Medicine; Visit Provider Family Medicine
DX: E03.9 Hypothyroidism, unspecified (principal)
CPT/HCPCS: 36415; 84443

== ENCOUNTER → 2020-10-16 17:06 | Outpatient (CLI) | payer MEDICARE, SELFPAY ==
[2020-06-03 00:47] VITALS: BMI 31.6
[2020-10-16] MEDS: COVID-19 VACC #1, MRNA(MOD) 100 MCG/0.5 ML VIAL IM (17:13)
== END ==
PROVIDERS: PCP Family Medicine; Visit Provider Internal Medicine
DX: Z23 Encounter for immunization (principal)
CPT/HCPCS: 0011A; 91301

== ENCOUNTER → 2020-10-17 13:56 | Outpatient (CLI) | payer OTHER, SELFPAY ==
[2020-06-03 00:47] VITALS: BMI 31.6
--- NOTE | 2020-10-17 13:59 | DI.MG.S_ITS ---
BILATERAL DIGITAL SCREENING MAMMOGRAM 3D/2D WITH CAD: 10/17/2020 CLINICAL: Routine screening. Family history of breast cancer. Comparison is made to exams dated: 09/08/2019 mammogram, 08/25/2018 mammogram, and 04/29/2017 mammogram - [facility]. The tissue of both breasts is heterogeneously dense. This may lower the sensitivity of mammography. Current study was also evaluated with a Computer Aided Detection (CAD) system. No significant masses, calcifications, or other findings are seen in either breast. There has been no significant interval change. IMPRESSION: NEGATIVE There is no mammographic evidence of malignancy. A 1 year screening mammogram is recommended. This exam was interpreted at Station ID: [id number]. NOTE: For mammograms, a report in lay terms will be sent to the patient. Approximately 15% of breast malignancies will not be visualized mammographically. In the management of a palpable breast mass, a negative mammogram must not discourage biopsy of a clinically suspicious lesion. Electronically Signed By: Rajat figueroa/chas:10/17/2020 14:48:14 letter sent: Normal Exam ACR BI-RADS Category 1: Negative [id number]
== END ==
PROVIDERS: PCP Family Medicine; Referring Provider Family Medicine; Visit Provider Family Medicine
DX: Z12.31 Encounter for screening mammogram for malignant neoplasm of breast (principal); Z80.3 Family history of malignant neoplasm of breast
CPT/HCPCS: 77063; 77067

== ENCOUNTER → 2020-11-06 14:08 | Outpatient (CLI) | payer OTHER, SELFPAY ==
[2020-06-03 00:47] VITALS: BMI 31.6
--- NOTE | 2020-11-06 14:10 | DI.CT.S_ITS ---
PROCEDURE: CT CHEST WO CON INDICATIONS: Other nonspecific abnormal finding of lung field TECHNIQUE: Noncontrast 5 mm thick sections acquired from the pulmonary apices to the posterior costophrenic angles. 1 mm lung window, 5 mm thick coronal and sagittal and 7 mm axial MIP reformats were then acquired. For radiation dose reduction, the following was used: automated exposure control, adjustment of mA and/or kV according to patient size. COMPARISON: [facility], CT, CT ANGIO CHEST PE PROTOCOL, 08/29/2018, 14:45. CTA chest dated 06/02/20. FINDINGS: Image quality: Excellent. Scattered subsegmental atelectasis and/or scarring. No focal consolidation. 3 mm unchanged right middle lobe pulmonary nodule. Similar left lower lobe sub 5 mm pulmonary nodules also unchanged dating back to 2018. However, 9 mm pulmonary nodule in the posterior left lower lobe on image 162/3 warrants follow-up, this was present on the most recent prior study only. Upper lobe predominant centrilobular emphysema. No pleural effusions or pneumothorax. Airway thickening in keeping with nonspecific bronchitis and/or reactive airways disease. Mediastinum: Heart size is normal. No pericardial effusion. No mediastinal adenopathy by size criteria. Thoracic aorta and central pulmonary arteries are normal in size. Scattered vascular calcifications seen in the aorta. Esophagus is normal in caliber. No hiatal hernia. Bones and chest wall: No suspicious bony lesions. No vertebral body compression fractures. No axillary or supraclavicular adenopathy by size criteria. Abdomen: Visualized upper abdominal solid organs and bowel loops appear normal in the absence of contrast. IMPRESSION: Scattered unchanged pulmonary nodules presumably from chronic granulomatous disease. 9 mm nodule involving the posterior left lower lobe grossly unchanged since 06/02/20 however warrants continued follow-up in [address] chest. Airway thickening in keeping with nonspecific bronchitis and/or reactive airways disease. Emphysema. Dictated by: Esteban Randall M.D. on 11/06/2020 at 15:15 Approved by: Esteban Randall M.D. on 11/06/2020 at 15:23
--- NOTE | 2020-11-06 14:30 | DI.RAD.S_ITS ---
PROCEDURE: XR CHEST 2V INDICATIONS: DYSPNEA TECHNIQUE: 2 views of the chest were acquired. COMPARISON: [facility], CT, CT CHEST WO CON, 11/06/2020, 14:12. [facility], CR, XR CHEST 2V, 08/20/2020, 14:24. [facility], CR, XR CHEST 1V, 06/16/2020, 3:26. FINDINGS: Surgical changes and devices: Left pacemaker with right atrial and right ventricular leads. Lungs and pleura: Diffuse increased interstitial markings similar to the prior exam. This is likely due to emphysematous change. No significant pleural effusions or pneumothorax. Mediastinum: Mediastinal contours are unchanged. Heart size is normal. Bones and chest wall: No suspicious bony abnormalities. Soft tissues appear unremarkable. IMPRESSION: No acute cardiopulmonary abnormality. Emphysematous change. Dictated by: Roger Osborne M.D. on 11/06/2020 at 15:27 Approved by: Roger Osborne M.D. on 11/06/2020 at 15:31
[2020-11-06 15:21] LABS: Add Manual Diff / Slide Review NO; Basophils Absolute Auto 0 /uL (0-100); Basophils Percent Auto 0.5 % (0-2); Eosinophils Absolute Auto 300 /uL (0-450); Hematocrit 36.6 % (36-46); Hemoglobin 12.3 g/dL (12.0-16.0); Lymphocytes Absolute Auto 2100 /uL (1100-4500); Lymphocytes Percent Auto 22.5 % (25-40); Mean Corpuscular HGB Conc 33.6 % (30-36); Mean Corpuscular Hemoglobin 28.6 PG (26-34); Mean Corpuscular Volume 85.1 fL (80-100); Monocytes Absolute Auto 900 /uL (0-900); Monocytes Percent Auto 9.5 % (3-14); Neutrophils Absolute Auto 6100 /uL (1500-7000); Neutrophils Percent Auto 64.5 % (50-75); Platelet Count 250 X10^3/uL (150-400); Red Cell Distribution Width 14.7 % (11.6-14.8); White Blood Cell Count 9.4 X10^3/uL (4.5-11.0)
[2020-11-06 15:56] LABS: BUN Creatinine Ratio 24.1 (6-22); Blood Urea Nitrogen 21 mg/dL (7-17); Calcium 9.6 mg/dL (8.4-10.2); Carbon Dioxide 26 mmol/L (22-32); Chloride 105 mmol/L (98-107); Estimated Glomerular Filt Rate > 60.0 mL/min (>60); Glucose 107 mg/dL (80-110); HEMOLYSIS < 15 (0-50); Potassium 3.9 mmol/L (3.4-5.1); Sodium 138 mmol/L (137-145)
[2020-11-06 16:05] LABS: NT-proBNP (BNP-Adult 18+) 66 pg/mL (<450)
== END ==
PROVIDERS: PCP Family Medicine; Referring Provider Internal Medicine Cardiovascular Disease; Visit Provider Specialist
DX: R91.1 Solitary pulmonary nodule (principal); R06.01 Orthopnea; J43.9 Emphysema, unspecified
CPT/HCPCS: 36415; 71046; 71250; 80048; 83880; 85025

== ENCOUNTER → 2020-11-13 13:47 | Outpatient (CLI) | payer MEDICARE, SELFPAY ==
[2020-06-03 00:47] VITALS: BMI 31.6
[2020-11-13] MEDS: COVID-19 VACC #2, MRNA(MOD) 100 MCG/0.5 ML VIAL IM (13:55)
== END ==
PROVIDERS: PCP Family Medicine; Visit Provider Internal Medicine
DX: Z23 Encounter for immunization (principal)
CPT/HCPCS: 0012A; 91301

== ENCOUNTER → 2021-04-14 09:45 | Outpatient (CLI) | payer OTHER, SELFPAY ==
[2020-06-03 00:47] VITALS: BMI 31.6
[2021-04-14 10:26] LABS: Add Manual Diff / Slide Review NO; Basophils Absolute Auto 0 /uL (0-100); Basophils Percent Auto 0.4 % (0-2); Eosinophils Absolute Auto 200 /uL (0-450); Eosinophils Percent Auto 2.3 % (2-4); Hematocrit 35.5 % (36-46); Hemoglobin 11.8 g/dL (12.0-16.0); Lymphocytes Absolute Auto 2200 /uL (1100-4500); Lymphocytes Percent Auto 28.1 % (25-40); Mean Corpuscular HGB Conc 33.3 % (30-36); Mean Corpuscular Hemoglobin 29.1 PG (26-34); Mean Corpuscular Volume 87.2 fL (80-100); Monocytes Absolute Auto 800 /uL (0-900); Monocytes Percent Auto 9.8 % (3-14); Neutrophils Absolute Auto 4600 /uL (1500-7000); Neutrophils Percent Auto 59.4 % (50-75); Platelet Count 242 X10^3/uL (150-400); Red Blood Cell Count 4.08 X10^6/uL (4.0-5.2); Red Cell Distribution Width 14.3 % (11.6-14.8); White Blood Cell Count 7.7 X10^3/uL (4.5-11.0)
[2021-04-14 10:44] LABS: BUN Creatinine Ratio 25.3 (6-22); Blood Urea Nitrogen 19 mg/dL (7-17); Calcium 9.5 mg/dL (8.4-10.2); Carbon Dioxide 25 mmol/L (22-32); Chloride 105 mmol/L (98-107); Estimated Glomerular Filt Rate > 60.0 mL/min (>60); Glucose 108 mg/dL (80-110); HEMOLYSIS < 15 (0-50); Potassium 4.1 mmol/L (3.4-5.1); Sodium 138 mmol/L (137-145)
== END ==
PROVIDERS: PCP Family Medicine; Referring Provider Internal Medicine Cardiovascular Disease; Visit Provider Internal Medicine Cardiovascular Disease
DX: I10 Essential (primary) hypertension (principal); Z79.01 Long term (current) use of anticoagulants
CPT/HCPCS: 36415; 80048; 85025

== ENCOUNTER → 2021-06-11 14:46 | Outpatient (CLI) | payer OTHER, SELFPAY ==
[2020-06-03 00:47] VITALS: BMI 31.6
--- NOTE | 2021-06-11 | DI.CT.S_ITS ---
PROCEDURE: CT CHEST WO CON INDICATIONS: Other nonspecific abnormal finding of lung field TECHNIQUE: Noncontrast 5 mm thick sections acquired from the pulmonary apices to the posterior costophrenic angles. 1 mm lung window, 5 mm thick coronal and sagittal and 7 mm axial MIP reformats were then acquired. For radiation dose reduction, the following was used: automated exposure control, adjustment of mA and/or kV according to patient size. COMPARISON: [facility], CT, CT CHEST WO CON, 11/06/2020, 14:12. FINDINGS: Image quality: Excellent. Lungs and pleura: Emphysematous changes noted involving the pulmonary parenchyma. There is a pleural based nodule left lower lobe measuring 9 mm on image 3/148, unchanged from the prior. 3 mm right middle lobe and 5 mm left lower lobe also remains unchanged. Additional smaller nodules bilateral peripheral lungs are also stable. Mediastinum: Heart size is normal. Dual-chamber left-sided pacemaker noted unchanged. Atherosclerotic calcification in the abdominal aorta noted without evidence of aneurysm. No pericardial effusion. No mediastinal adenopathy by size criteria. Thoracic aorta and central pulmonary arteries are normal in size. Esophagus is normal in caliber. No hiatal hernia. Bones and chest wall: No suspicious bony lesions. No vertebral body compression fractures. No axillary or supraclavicular adenopathy by size criteria. Thyroid gland unremarkable . Abdomen: Surgical clips noted in the gallbladder fossa. IMPRESSION: 1. Stable scattered pulmonary nodules in a background of pulmonary emphysema all remains stable from the prior exam. Consider 1 year follow-up to assure stability. Approved by: Jonathan Raimrez M.D. on 06/11/2021 at 17:23
== END ==
PROVIDERS: PCP Family Medicine; Referring Provider Specialist; Visit Provider Specialist
DX: R91.8 Other nonspecific abnormal finding of lung field (principal); I70.0 Atherosclerosis of aorta; J43.9 Emphysema, unspecified; Z95.0 Presence of cardiac pacemaker
CPT/HCPCS: 71250

== ENCOUNTER → 2021-10-13 08:42 | Outpatient (CLI) | payer OTHER, SELFPAY ==
[2020-06-03 00:47] VITALS: BMI 31.6
[2021-10-13 11:01] LABS: Add Manual Diff / Slide Review NO; Basophils Absolute Auto 0 /uL (0-100); Basophils Percent Auto 0.5 % (0-2); Eosinophils Absolute Auto 200 /uL (0-450); Eosinophils Percent Auto 2.9 % (2-4); Hematocrit 35.8 % (36-46); Hemoglobin 12.3 g/dL (12.0-16.0); Lymphocytes Absolute Auto 1900 /uL (1100-4500); Lymphocytes Percent Auto 25.2 % (25-40); Mean Corpuscular HGB Conc 34.3 % (30-36); Mean Corpuscular Hemoglobin 29.1 PG (26-34); Mean Corpuscular Volume 84.7 fL (80-100); Monocytes Absolute Auto 700 /uL (0-900); Monocytes Percent Auto 9.7 % (3-14); Neutrophils Absolute Auto 4500 /uL (1500-7000); Neutrophils Percent Auto 61.7 % (50-75); Platelet Count 253 X10^3/uL (150-400); Red Blood Cell Count 4.23 X10^6/uL (4.0-5.2); Red Cell Distribution Width 14.5 % (11.6-14.8); White Blood Cell Count 7.4 X10^3/uL (4.5-11.0)
[2021-10-13 11:22] LABS: Blood Urea Nitrogen 21 mg/dL (7-17); Calcium 9.5 mg/dL (8.4-10.2); Carbon Dioxide 28 mmol/L (22-32); Chloride 104 mmol/L (98-107); Cholesterol 162 mg/dL (140-199); Estimated Glomerular Filt Rate > 60.0 mL/min (>60); Glucose 105 mg/dL (80-110); HDL Cholesterol 54 mg/dL (40-60); HEMOLYSIS < 15 (0-50); LDL Cholesterol Calculated 86 mg/dL (<100); Potassium 4.2 mmol/L (3.4-5.1); Sodium 138 mmol/L (137-145); Triglycerides 111 mg/dL (35-150)
== END ==
PROVIDERS: PCP Family Medicine; Referring Provider Internal Medicine Cardiovascular Disease; Visit Provider Internal Medicine Cardiovascular Disease
DX: I10 Essential (primary) hypertension (principal); E78.5 Hyperlipidemia, unspecified
CPT/HCPCS: 36415; 80048; 80061; 85025

== ENCOUNTER → 2021-11-25 10:10 | Outpatient (CLI) | payer OTHER, SELFPAY ==
[2020-06-03 00:47] VITALS: BMI 31.6
--- NOTE | 2021-11-25 | DI.MG.S_ITS ---
BILATERAL DIGITAL SCREENING MAMMOGRAM 3D/2D WITH CAD: 11/25/2021 CLINICAL: Routine screening. Family history of breast cancer. Comparison is made to exams dated: 10/17/2020 mammogram, 09/08/2019 mammogram, and 08/25/2018 mammogram - [facility]. The tissue of both breasts is heterogeneously dense. This may lower the sensitivity of mammography. Current study was also evaluated with a Computer Aided Detection (CAD) system. No significant masses, calcifications, or other findings are seen in either breast. There has been no significant interval change. IMPRESSION: NEGATIVE There is no mammographic evidence of malignancy. A 1 year screening mammogram is recommended. This exam was interpreted at Station ID: [id number]. NOTE: For mammograms, a report in lay terms will be sent to the patient. Approximately 15% of breast malignancies will not be visualized mammographically. In the management of a palpable breast mass, a negative mammogram must not discourage biopsy of a clinically suspicious lesion. Electronically Signed By: Rajat figueroa/chas:11/25/2021 12:36:18 letter sent: Normal Exam ACR BI-RADS Category 1: Negative [id number]
== END ==
PROVIDERS: PCP Family Medicine; Referring Provider Family Medicine; Visit Provider Family Medicine
DX: Z12.31 Encounter for screening mammogram for malignant neoplasm of breast (principal)
CPT/HCPCS: 77063; 77067

== ENCOUNTER → 2021-12-25 15:47 | Outpatient (CLI) | payer OTHER, SELFPAY ==
[2020-06-03 00:47] VITALS: BMI 31.6
--- NOTE | 2021-12-25 15:48 | DI.RAD.S_ITS ---
PROCEDURE: XR HIP W PEL IF DONE LESTER MIN 4V INDICATIONS: Pain in hips TECHNIQUE: AP pelvis with lateral view(s) of the bilateral hip(s). COMPARISON: [facility], CR, XR HIP W PEL IF DONE LESTER 3TO4V, 06/27/2020, 9:38. FINDINGS: Bones: No fractures or dislocations. Pelvic ring appears intact. No suspicious bony lesions. Mild symmetric axial joint space narrowing with periarticular osteophyte formation of the hip joints bilaterally. Degenerative disc and facet disease involves the inferior lumbar spine. Soft tissues: The visualized bowel gas pattern is normal. No suspicious soft tissue calcifications. IMPRESSION: Mild symmetric hip joint degeneration similar prior examination. Dictated by: Eugene Wilhelm [facility] Interpreted: Shabbir Carney MD on 12/25/2021 at 16:34 Transcribed by: JENNIFER on 12/25/2021 at 16:35 Approved by: Shabbir Carney M.D. on 12/25/2021 at 17:25
== END ==
PROVIDERS: PCP Family Medicine; Referring Provider Family Medicine; Visit Provider Family Medicine
DX: M25.551 Pain in right hip (principal); M25.552 Pain in left hip; M16.0 Bilateral primary osteoarthritis of hip
CPT/HCPCS: 73522

== ENCOUNTER 2022-05-07 15:15 | Outpatient (RCR) | payer OTHER, SELFPAY ==
[2020-06-03 00:47] VITALS: BMI 31.6
--- NOTE | 2022-02-11 15:54 | PT.OIE ---
Current Diagnoses Pain in right hip (02/11/22) Pain in left hip (02/11/22) Trochanteric bursitis, right hip (02/11/22) Trochanteric bursitis, left hip (02/11/22) Past Medical History (Last Reviewed 07/29/21 @ 13:54 by Kishor Mason MD) AAA (abdominal aortic aneurysm) Actinic keratosis Centrilobular emphysema Chicken pox (1946) Chronic back pain (1955) COPD (chronic obstructive pulmonary disease) DVT (deep venous thrombosis) Facet arthropathy, lumbar Fracture of left patella (2009) Fracture of right wrist (2009) History of left knee surgery (2009) History of squamous cell carcinoma excision (2000) Hypertension Hypothyroidism Hypoxemia requiring supplemental oxygen Lumbar stenosis Obesity (BMI 30-39.9) Obstructive sleep apnea, adult Osteoarthritis (2009) Osteoporosis Retinal detachment (2011) RLS (restless legs syndrome) (1959) SCCA (squamous cell carcinoma) of skin (2000) Seizures (1953) Skin cancer (2000) Status post wrist surgery (2009) Tinnitus Past Surgical History (Last Reviewed 07/29/21 @ 13:54 by Kishor Mason MD) Anesthesia History of cataract removal with insertion of prosthetic lens (2013) History of left knee surgery (2009) History of squamous cell carcinoma excision (2000) Status post cholecystectomy (2004) Status post wrist surgery (2009) Visit Care Team Role Provider Type Yris Zaman MD Attending Provider Physician Family Provider Primary Care Provider Referring Provider Specialty: Family Practice Address: [address] [place] [address], [facility] Email: [email or web address] Physical Therapy Initial Evaluation PT-OP-A Visit Information Start: 02/11/22 15:21 Freq: Status: Active Protocol: Document 02/11/22 13:45 DCW (Rec: 02/11/22 15:40 DCW [id number]) Out-Patient Physical Therapy Visit Information Visit Information Visit Type Initial Evaluation Visit Start Time 13:45 Visit Stop Time 14:25 Total Visit Minutes 40 Visit Number 1 Number of ALARM INSTALLATION TECHNICIAN Visits 0 Evaluation Information Evaluation Date 02/11/22 PT-OP-B Current Condition Start: 02/11/22 15:21 Freq: Status: Active Protocol: Document 02/11/22 13:45 DCW (Rec: 02/11/22 15:40 DCW [id number]) Current Condition History of Current Condition Onset Date A couple years Current Complaints Lateral hip pain History of Current Condition Pt is an 86 year old female presenting with a multi-year history of bilateral lateral hip pain. Pt notes pain is very point specific directly inferior to her GT bilaterally . Notes increased pain with any walking, pain occurs immediately upon starting to walk. Reports she typically uses a 4WW for community ambulation, which does not prevent hip pain. Pt has not yet found anything that helps pain. Additionally, pt uses supplemental O2, but only at night, or when coming into her Dr appointments when she knows she'll need to be wearing a mask. Pt has difficulty breathing when supine, needs to either lie on her side or propped up. Pt also notes right anterior thigh numbness when standing longer than five minutes. Prior Treatments and Tests Pt previously treated at this facility in 2019 for low back and posterior hip pain. Treatment Goals Patient/Caregiver Goals Eliminate hip pain with walking PT-OP-C Subjective Start: 02/11/22 15:21 Freq: Status: Active Protocol: Document 02/11/22 13:45 DCW (Rec: 02/11/22 15:40 DCW [id number]) OP-PT Subjective Patient Comments Patient Comments I'm still doing all the exercises I got last time I was in here. Patient Reported Progress Same PT-OP-F Manual Assessment Start: 02/11/22 15:21 Freq: Status: Active Protocol: Document 02/11/22 13:45 DCW (Rec: 02/11/22 15:40 DCW [id number]) Manual Assessments Soft Tissue Assessment Soft Tissue Mobility Assessment Bilateral point-specific pain with palpation immediately next to greater trochanter bilaterally, no tenderness at any other points at this time. PT-OP-K Range of Motion Start: 02/11/22 15:21 Freq: Status: Active Protocol: Document 02/11/22 13:45 DCW (Rec: 02/11/22 15:40 DCW [id number]) Hip Goniometric Range of Motion Hip Right Active Hip ROM WFL Yes Testing Position Sitting Comments WNL, no notable pain Left Active Hip ROM WFL Yes Testing Position Sitting Comments WNL, no notable pain PT-OP-L Special Tests Start: 02/11/22 15:21 Freq: Status: Active Protocol: Document 02/11/22 13:45 DCW (Rec: 02/11/22 15:40 DCW [id number]) Special Tests Hip Special Tests Maria Esther's Test Test Results Negative Straight Leg Raise Test Results Negative PHIL Test Results Negative PT-OP-M Strength Start: 02/11/22 15:21 Freq: Status: Active Protocol: Document 02/11/22 13:45 DCW (Rec: 02/11/22 15:40 DCW [id number]) Hip Strength Hip Manual Muscle Testing Right Flexion (L2) 4+ Good+ Abduction 4 Good Adduction 4+ Good+ External Rotation 4+ Good+ Internal Rotation 4+ Good+ Left Flexion (L2) 4+ Good+ Abduction 4 Good Adduction 4+ Good+ External Rotation 4+ Good+ Internal Rotation 4+ Good+ PT-OP-Q Treatments Start: 02/11/22 15:21 Freq: Status: Active Protocol: Document 02/11/22 13:45 DCW (Rec: 02/11/22 15:41 DCW [id number]) Therapeutic Exercises Supine Exercises 1 Supine Exercise Name ITB stretch /c strap Side bilateral Comments Semi-recumbent Standing Exercises 1 Standing Exercise Name Hip abduction Side bilateral PT-OP-T Assessment and Plan Start: 02/11/22 15:21 Freq: Status: Active Protocol: Document 02/11/22 13:45 DCW (Rec: 02/11/22 15:53 DCW [id number]) Physical Therapy Assessment Rehab Potential Rehabilitation Potential Good Evaluation Complexity Number of Personal Factors/Comorbidities 1-2 Number of Body Systems Impaired 3 Clinical Presentation at Evaluation Stable Impairments Impairments Activity Tolerance,Pain, Strength Goals Two Impairment Pt experiences increased pain immediately upon starting gait Window Shade Installer Goal (LTG) Pt to report ability to ambulate for 15 minutes without increased pain in order to allow her to increase activity tolerance LTG Duration 04/13/22 One Impairment Pt does not have an appropriate home exercise program Short Term Goal (STG) Pt to be independent and compliant with an appropriate HEP STG Duration 03/13/22 Assessment Summary Assessment Pt presents with signs and symptoms consistent with hip bursitis. Pt has point- specific pain directly on bursa bilaterally, with increased pain associated with walking and having her ITB strum across her bursa. Pt should benefit from skilled therapy focusing on improving bilateral hip strength and mobility, as well as modalities working to decrease pain and inflammation. Physical Therapy Plan Frequency and Duration Frequency of Treatment 2x/Week Duration of Treatment Two months Plan of Care Start Date 02/11/22 Plan of Care End Date 04/13/22 Therapeutic Interventions Therapeutic Interventions Home Exercise Program,Manual Therapy,Neuromuscular Re- education,Patient/Caregiver Education,Self-Care/Home Management,Soft Tissue Mobilization,Taping, Therapeutic Activities, Therapeutic Exercises Modalities Cold Pack/Ice Massage,Electric Stimulation,Hot Packs, Iontophoresis,Ultrasound Other Therapeutic Interventions Iontophoresis with Dexamethasone: 4 mg/mL Next Visit Focus/Plan Next Note Type Treatment Note Next Visit Plan Stretching/flexibility, STM, hip strengthening
--- NOTE | 2022-02-11 15:55 | PT.OPPOC ---
Physical, Occupational & Speech Therapy At Current Diagnoses Pain in right hip (02/11/22) Pain in left hip (02/11/22) Trochanteric bursitis, right hip (02/11/22) Trochanteric bursitis, left hip (02/11/22) Visit Care Team Role Provider Type Yris Zaman MD Attending Provider Physician Family Provider Primary Care Provider Referring Provider Specialty: Family Practice Address: [address] [place] [address], [facility] Email: [email or web address] Plan Of Care PT-OP-T Assessment and Plan Start: 02/11/22 15:21 Freq: Status: Active Protocol: Document 02/11/22 13:45 DCW (Rec: 02/11/22 15:53 DCW [id number]) Physical Therapy Assessment Rehab Potential Rehabilitation Potential Good Evaluation Complexity Number of Personal Factors/Comorbidities 1-2 Number of Body Systems Impaired 3 Clinical Presentation at Evaluation Stable Impairments Impairments Activity Tolerance,Pain, Strength Goals Two Impairment Pt experiences increased pain immediately upon starting gait Custodial Goal (LTG) Pt to report ability to ambulate for 15 minutes without increased pain in order to allow her to increase activity tolerance LTG Duration 04/13/22 One Impairment Pt does not have an appropriate home exercise program Short Term Goal (STG) Pt to be independent and compliant with an appropriate HEP STG Duration 03/13/22 Assessment Summary Assessment Pt presents with signs and symptoms consistent with hip bursitis. Pt has point- specific pain directly on bursa bilaterally, with increased pain associated with walking and having her ITB strum across her bursa. Pt should benefit from skilled therapy focusing on improving bilateral hip strength and mobility, as well as modalities working to decrease pain and inflammation. Physical Therapy Plan Frequency and Duration Frequency of Treatment 2x/Week Duration of Treatment Two months Plan of Care Start Date 02/11/22 Plan of Care End Date 04/13/22 Therapeutic Interventions Therapeutic Interventions Home Exercise Program,Manual Therapy,Neuromuscular Re- education,Patient/Caregiver Education,Self-Care/Home Management,Soft Tissue Mobilization,Taping, Therapeutic Activities, Therapeutic Exercises Modalities Cold Pack/Ice Massage,Electric Stimulation,Hot Packs, Iontophoresis,Ultrasound Other Therapeutic Interventions Iontophoresis with Dexamethasone: 4 mg/mL Next Visit Focus/Plan Next Note Type Treatment Note Next Visit Plan Stretching/flexibility, STM, hip strengthening Plan of Care Dates Plan of Care Start Date 02/11/22 Plan of Care End Date 04/13/22 Electronically Signed by: Walter Polanco, PT 02/11/22 6211 If you are in agreement with this Plan of Care, please return a signed and dated copy. I have reviewed this Plan of Care and certify that the skilled therapy services above are required to meet the patient?s needs. Physician Signature Date Printed Name and Credentials Clinical Instructor Signature Printed Name and Credentials
--- NOTE | 2022-02-17 14:31 | PT.OTN ---
Current Diagnoses Pain in right hip (02/17/22) Pain in left hip (02/17/22) Trochanteric bursitis, right hip (02/17/22) Trochanteric bursitis, left hip (02/17/22) Physical Therapy Treatment Note PT-OP-A Visit Information Start: 02/11/22 15:21 Freq: Status: Active Protocol: Document 02/17/22 13:47 DCW (Rec: 02/17/22 14:31 DCW [id number]) Out-Patient Physical Therapy Visit Information Visit Information Visit Type Treatment Note Visit Start Time 13:47 Visit Stop Time 14:30 Total Visit Minutes 43 Visit Number 2 Number of CHEESE WEIGHER Visits 0 Evaluation Information Evaluation Date 02/11/22 PT-OP-B Current Condition Start: 02/11/22 15:21 Freq: Status: Active Protocol: Document 02/11/22 13:45 DCW (Rec: 02/11/22 15:40 DCW [id number]) Current Condition History of Current Condition Onset Date A couple years Current Complaints Lateral hip pain History of Current Condition Pt is an 86 year old female presenting with a multi-year history of bilateral lateral hip pain. Pt notes pain is very point specific directly inferior to her GT bilaterally . Notes increased pain with any walking, pain occurs immediately upon starting to walk. Reports she typically uses a 4WW for community ambulation, which does not prevent hip pain. Pt has not yet found anything that helps pain. Additionally, pt uses supplemental O2, but only at night, or when coming into her Dr appointments when she knows she'll need to be wearing a mask. Pt has difficulty breathing when supine, needs to either lie on her side or propped up. Pt also notes right anterior thigh numbness when standing longer than five minutes. Prior Treatments and Tests Pt previously treated at this facility in 2019 for low back and posterior hip pain. Treatment Goals Patient/Caregiver Goals Eliminate hip pain with walking PT-OP-C Subjective Start: 02/11/22 15:21 Freq: Status: Active Protocol: Document 02/17/22 13:47 DCW (Rec: 02/17/22 14:31 DCW [id number]) OP-PT Subjective Patient Comments Patient Comments Pt reports her hips are still the same. Comes in today with her supplemental O2. PT-OP-F Manual Assessment Start: 02/11/22 15:21 Freq: Status: Active Protocol: Document 02/11/22 13:45 DCW (Rec: 02/11/22 15:40 DCW [id number]) Manual Assessments Soft Tissue Assessment Soft Tissue Mobility Assessment Bilateral point-specific pain with palpation immediately next to greater trochanter bilaterally, no tenderness at any other points at this time. PT-OP-K Range of Motion Start: 02/11/22 15:21 Freq: Status: Active Protocol: Document 02/11/22 13:45 DCW (Rec: 02/11/22 15:40 DCW [id number]) Hip Goniometric Range of Motion Hip Right Active Hip ROM WFL Yes Testing Position Sitting Comments WNL, no notable pain Left Active Hip ROM WFL Yes Testing Position Sitting Comments WNL, no notable pain PT-OP-L Special Tests Start: 02/11/22 15:21 Freq: Status: Active Protocol: Document 02/11/22 13:45 DCW (Rec: 02/11/22 15:40 DCW [id number]) Special Tests Hip Special Tests Maria Esther's Test Test Results Negative Straight Leg Raise Test Results Negative PHIL Test Results Negative PT-OP-M Strength Start: 02/11/22 15:21 Freq: Status: Active Protocol: Document 02/11/22 13:45 DCW (Rec: 02/11/22 15:40 DCW [id number]) Hip Strength Hip Manual Muscle Testing Right Flexion (L2) 4+ Good+ Abduction 4 Good Adduction 4+ Good+ External Rotation 4+ Good+ Internal Rotation 4+ Good+ Left Flexion (L2) 4+ Good+ Abduction 4 Good Adduction 4+ Good+ External Rotation 4+ Good+ Internal Rotation 4+ Good+ PT-OP-Q Treatments Start: 02/11/22 15:21 Freq: Status: Active Protocol: Document 02/17/22 13:47 DCW (Rec: 02/17/22 14:31 DCW [id number]) Cardio Equipment Recumbent Elliptical (TheSquareFoot) Duration (Minutes) 5 Resistance 1 Seat Position 8 Therapeutic Exercises Supine Exercises 1 Supine Exercise Name ITB stretch Side bilateral Comments Semi-recumbent Standing Exercises 2 Standing Exercise Name Hip extension Side bilateral Resistance Yellow Other Exercises 1 Other Exercise Name Resisted side-stepping Resistance Yellow Manual Therapy Treatment Soft Tissue Mobilization ITB Body Location B ITB Mobilization Type Sustained Pressure,Trigger Point Release Body Position Sitting PT-OP-T Assessment and Plan Start: 02/11/22 15:21 Freq: Status: Active Protocol: Document 02/17/22 13:47 DCW (Rec: 02/17/22 14:31 DCW [id number]) Physical Therapy Assessment Impairments Impairments Activity Tolerance,Pain, Strength Goals Two Impairment Pt experiences increased pain immediately upon starting gait Half-Way Goal (LTG) Pt to report ability to ambulate for 15 minutes without increased pain in order to allow her to increase activity tolerance LTG Duration 04/13/22 One Impairment Pt does not have an appropriate home exercise program Short Term Goal (STG) Pt to be independent and compliant with an appropriate HEP STG Duration 03/13/22 Assessment Summary Assessment Pt tolerated treatment well today, was having some increased difficulty with SOB today, but then noticed she had not opened the valve for her O2, was then feeling better. Physical Therapy Plan Frequency and Duration Frequency of Treatment 2x/Week Duration of Treatment Two months Plan of Care Start Date 02/11/22 Plan of Care End Date 04/13/22 Therapeutic Interventions Therapeutic Interventions Home Exercise Program,Manual Therapy,Neuromuscular Re- education,Patient/Caregiver Education,Self-Care/Home Management,Soft Tissue Mobilization,Taping, Therapeutic Activities, Therapeutic Exercises Modalities Cold Pack/Ice Massage,Electric Stimulation,Hot Packs, Iontophoresis,Ultrasound Other Therapeutic Interventions Iontophoresis with Dexamethasone: 4 mg/mL Next Visit Focus/Plan Next Note Type Treatment Note Next Visit Plan Stretching/flexibility, STM, hip strengthening
--- NOTE | 2022-02-19 14:31 | PT.OTN ---
Current Diagnoses Pain in right hip (02/19/22) Pain in left hip (02/19/22) Trochanteric bursitis, right hip (02/19/22) Trochanteric bursitis, left hip (02/19/22) Physical Therapy Treatment Note PT-OP-A Visit Information Start: 02/11/22 15:21 Freq: Status: Active Protocol: Document 02/19/22 13:45 DCW (Rec: 02/19/22 14:31 DCW [id number]) Out-Patient Physical Therapy Visit Information Visit Information Visit Type Treatment Note Visit Start Time 13:45 Visit Stop Time 14:30 Total Visit Minutes 45 Visit Number 3 Number of QUARTER SUPERVISOR Visits 0 Evaluation Information Evaluation Date 02/11/22 PT-OP-B Current Condition Start: 02/11/22 15:21 Freq: Status: Active Protocol: Document 02/11/22 13:45 DCW (Rec: 02/11/22 15:40 DCW [id number]) Current Condition History of Current Condition Onset Date A couple years Current Complaints Lateral hip pain History of Current Condition Pt is an 86 year old female presenting with a multi-year history of bilateral lateral hip pain. Pt notes pain is very point specific directly inferior to her GT bilaterally . Notes increased pain with any walking, pain occurs immediately upon starting to walk. Reports she typically uses a 4WW for community ambulation, which does not prevent hip pain. Pt has not yet found anything that helps pain. Additionally, pt uses supplemental O2, but only at night, or when coming into her Dr appointments when she knows she'll need to be wearing a mask. Pt has difficulty breathing when supine, needs to either lie on her side or propped up. Pt also notes right anterior thigh numbness when standing longer than five minutes. Prior Treatments and Tests Pt previously treated at this facility in 2019 for low back and posterior hip pain. Treatment Goals Patient/Caregiver Goals Eliminate hip pain with walking PT-OP-C Subjective Start: 02/11/22 15:21 Freq: Status: Active Protocol: Document 02/19/22 13:45 DCW (Rec: 02/19/22 14:31 DCW [id number]) OP-PT Subjective Patient Comments Patient Comments You did a good job kneading my legs last time, you got them nice and sore. PT-OP-F Manual Assessment Start: 02/11/22 15:21 Freq: Status: Active Protocol: Document 02/11/22 13:45 DCW (Rec: 02/11/22 15:40 DCW [id number]) Manual Assessments Soft Tissue Assessment Soft Tissue Mobility Assessment Bilateral point-specific pain with palpation immediately next to greater trochanter bilaterally, no tenderness at any other points at this time. PT-OP-K Range of Motion Start: 02/11/22 15:21 Freq: Status: Active Protocol: Document 02/11/22 13:45 DCW (Rec: 02/11/22 15:40 DCW [id number]) Hip Goniometric Range of Motion Hip Right Active Hip ROM WFL Yes Testing Position Sitting Comments WNL, no notable pain Left Active Hip ROM WFL Yes Testing Position Sitting Comments WNL, no notable pain PT-OP-L Special Tests Start: 02/11/22 15:21 Freq: Status: Active Protocol: Document 02/11/22 13:45 DCW (Rec: 02/11/22 15:40 DCW [id number]) Special Tests Hip Special Tests Maria Esther's Test Test Results Negative Straight Leg Raise Test Results Negative PHIL Test Results Negative PT-OP-M Strength Start: 02/11/22 15:21 Freq: Status: Active Protocol: Document 02/11/22 13:45 DCW (Rec: 02/11/22 15:40 DCW [id number]) Hip Strength Hip Manual Muscle Testing Right Flexion (L2) 4+ Good+ Abduction 4 Good Adduction 4+ Good+ External Rotation 4+ Good+ Internal Rotation 4+ Good+ Left Flexion (L2) 4+ Good+ Abduction 4 Good Adduction 4+ Good+ External Rotation 4+ Good+ Internal Rotation 4+ Good+ PT-OP-Q Treatments Start: 02/11/22 15:21 Freq: Status: Active Protocol: Document 02/19/22 13:45 DCW (Rec: 02/19/22 14:31 DCW [id number]) Cardio Equipment Recumbent Elliptical (TheRouteBox) Duration (Minutes) 5 Resistance 1 Seat Position 8 Therapeutic Exercises Supine Exercises 2 Supine Exercise Name HS stretch Side bilateral Comments Semi-recumbent 1 Supine Exercise Name ITB stretch Side bilateral Comments Semi-recumbent Standing Exercises 2 Standing Exercise Name Hip extension Side bilateral Resistance Yellow Other Exercises 1 Other Exercise Name Resisted side-stepping Resistance Yellow Manual Therapy Treatment Soft Tissue Mobilization ITB Body Location B ITB Mobilization Type Sustained Pressure,Trigger Point Release Body Position Sitting PT-OP-T Assessment and Plan Start: 02/11/22 15:21 Freq: Status: Active Protocol: Document 02/19/22 13:45 DCW (Rec: 02/19/22 14:31 DCW [id number]) Physical Therapy Assessment Impairments Impairments Activity Tolerance,Pain, Strength Goals Two Impairment Pt experiences increased pain immediately upon starting gait Jail Goal (LTG) Pt to report ability to ambulate for 15 minutes without increased pain in order to allow her to increase activity tolerance LTG Duration 04/13/22 One Impairment Pt does not have an appropriate home exercise program Short Term Goal (STG) Pt to be independent and compliant with an appropriate HEP STG Duration 03/13/22 Assessment Summary Assessment Pt better tolerance to activity today with proper air -flow from supplemental O2. Decreased tenderness with STM to ITB. Physical Therapy Plan Frequency and Duration Frequency of Treatment 2x/Week Duration of Treatment Two months Plan of Care Start Date 02/11/22 Plan of Care End Date 04/13/22 Therapeutic Interventions Therapeutic Interventions Home Exercise Program,Manual Therapy,Neuromuscular Re- education,Patient/Caregiver Education,Self-Care/Home Management,Soft Tissue Mobilization,Taping, Therapeutic Activities, Therapeutic Exercises Modalities Cold Pack/Ice Massage,Electric Stimulation,Hot Packs, Iontophoresis,Ultrasound Other Therapeutic Interventions Iontophoresis with Dexamethasone: 4 mg/mL Next Visit Focus/Plan Next Note Type Treatment Note Next Visit Plan Stretching/flexibility, STM, hip strengthening
--- NOTE | 2022-02-23 14:34 | PT.OTN ---
Current Diagnoses Pain in right hip (02/23/22) Pain in left hip (02/23/22) Trochanteric bursitis, right hip (02/23/22) Trochanteric bursitis, left hip (02/23/22) Physical Therapy Treatment Note PT-OP-A Visit Information Start: 02/11/22 15:21 Freq: Status: Active Protocol: Document 02/23/22 13:45 DCW (Rec: 02/23/22 14:32 DCW [id number]) Out-Patient Physical Therapy Visit Information Visit Information Visit Type Treatment Note Visit Start Time 13:45 Visit Stop Time 14:30 Total Visit Minutes 45 Visit Number 4 Number of DIRECTOR MARK[employer]EARCH Visits 0 Evaluation Information Evaluation Date 02/11/22 PT-OP-B Current Condition Start: 02/11/22 15:21 Freq: Status: Active Protocol: Document 02/11/22 13:45 DCW (Rec: 02/11/22 15:40 DCW [id number]) Current Condition History of Current Condition Onset Date A couple years Current Complaints Lateral hip pain History of Current Condition Pt is an 86 year old female presenting with a multi-year history of bilateral lateral hip pain. Pt notes pain is very point specific directly inferior to her GT bilaterally . Notes increased pain with any walking, pain occurs immediately upon starting to walk. Reports she typically uses a 4WW for community ambulation, which does not prevent hip pain. Pt has not yet found anything that helps pain. Additionally, pt uses supplemental O2, but only at night, or when coming into her Dr appointments when she knows she'll need to be wearing a mask. Pt has difficulty breathing when supine, needs to either lie on her side or propped up. Pt also notes right anterior thigh numbness when standing longer than five minutes. Prior Treatments and Tests Pt previously treated at this facility in 2019 for low back and posterior hip pain. Treatment Goals Patient/Caregiver Goals Eliminate hip pain with walking PT-OP-C Subjective Start: 02/11/22 15:21 Freq: Status: Active Protocol: Document 02/23/22 13:45 DCW (Rec: 02/23/22 14:32 DCW [id number]) OP-PT Subjective Patient Comments Patient Comments I didn't use the strap to stretch my left leg, because that knee that I broke a while ago has been more sore. PT-OP-F Manual Assessment Start: 02/11/22 15:21 Freq: Status: Active Protocol: Document 02/11/22 13:45 DCW (Rec: 02/11/22 15:40 DCW [id number]) Manual Assessments Soft Tissue Assessment Soft Tissue Mobility Assessment Bilateral point-specific pain with palpation immediately next to greater trochanter bilaterally, no tenderness at any other points at this time. PT-OP-K Range of Motion Start: 02/11/22 15:21 Freq: Status: Active Protocol: Document 02/11/22 13:45 DCW (Rec: 02/11/22 15:40 DCW [id number]) Hip Goniometric Range of Motion Hip Right Active Hip ROM WFL Yes Testing Position Sitting Comments WNL, no notable pain Left Active Hip ROM WFL Yes Testing Position Sitting Comments WNL, no notable pain PT-OP-L Special Tests Start: 02/11/22 15:21 Freq: Status: Active Protocol: Document 02/11/22 13:45 DCW (Rec: 02/11/22 15:40 DCW [id number]) Special Tests Hip Special Tests Maria Esther's Test Test Results Negative Straight Leg Raise Test Results Negative PHIL Test Results Negative PT-OP-M Strength Start: 02/11/22 15:21 Freq: Status: Active Protocol: Document 02/11/22 13:45 DCW (Rec: 02/11/22 15:40 DCW [id number]) Hip Strength Hip Manual Muscle Testing Right Flexion (L2) 4+ Good+ Abduction 4 Good Adduction 4+ Good+ External Rotation 4+ Good+ Internal Rotation 4+ Good+ Left Flexion (L2) 4+ Good+ Abduction 4 Good Adduction 4+ Good+ External Rotation 4+ Good+ Internal Rotation 4+ Good+ PT-OP-Q Treatments Start: 02/11/22 15:21 Freq: Status: Active Protocol: Document 02/23/22 13:45 DCW (Rec: 02/23/22 14:32 DCW [id number]) Cardio Equipment Recumbent Elliptical ([employer]) Duration (Minutes) 5 Resistance 2 Seat Position 8 Therapeutic Exercises Supine Exercises 2 Supine Exercise Name HS stretch Side bilateral Comments Semi-recumbent 1 Supine Exercise Name ITB stretch Side bilateral Comments Semi-recumbent Standing Exercises 2 Standing Exercise Name Hip extension Side bilateral Resistance Yellow Other Exercises 1 Other Exercise Name Resisted side-stepping Resistance Yellow Manual Therapy Treatment Soft Tissue Mobilization ITB Body Location B ITB Mobilization Type Sustained Pressure,Trigger Point Release Body Position Sitting PT-OP-R Modalities Start: 02/23/22 14:33 Freq: Status: Active Protocol: Document 02/23/22 13:45 DCW (Rec: 02/23/22 14:34 DCW [id number]) Iontophoresis Treatment Left Lateral Hip Treatment Medication Dexamethasone (-) Medication Amount (mL) (ml) 1.0 Medication Dosage 4 mg/mL Treatment Polarity Negative to Negative Active Electrode Placement GT bursa Ultrasound Therapy Treatment Left Lateral Hip Treatment Duration (minutes) 8 Patient Position Sidelying Coupling Medium Ultrasound Gel Applicator Size (cm2) 5 Frequency Setting (mHz) 1 Mode Setting Continuous Duty Cycle 100% Intensity Setting (w/cm2) 1.0 PT-OP-T Assessment and Plan Start: 02/11/22 15:21 Freq: Status: Active Protocol: Document 02/23/22 13:45 DCW (Rec: 02/23/22 14:32 DCW [id number]) Physical Therapy Assessment Impairments Impairments Activity Tolerance,Pain, Strength Goals Two Impairment Pt experiences increased pain immediately upon starting gait Jail Goal (LTG) Pt to report ability to ambulate for 15 minutes without increased pain in order to allow her to increase activity tolerance LTG Duration 04/13/22 One Impairment Pt does not have an appropriate home exercise program Short Term Goal (STG) Pt to be independent and compliant with an appropriate HEP STG Duration 03/13/22 Assessment Summary Assessment Trial of both US and Ionto today to help with inflammation, pt instructed to take off patch in 4 hours or if she gets red and itchy around patch. Is moving better without less pain vs eval. Physical Therapy Plan Frequency and Duration Frequency of Treatment 2x/Week Duration of Treatment Two months Plan of Care Start Date 02/11/22 Plan of Care End Date 04/13/22 Therapeutic Interventions Therapeutic Interventions Home Exercise Program,Manual Therapy,Neuromuscular Re- education,Patient/Caregiver Education,Self-Care/Home Management,Soft Tissue Mobilization,Taping, Therapeutic Activities, Therapeutic Exercises Modalities Cold Pack/Ice Massage,Electric Stimulation,Hot Packs, Iontophoresis,Ultrasound Other Therapeutic Interventions Iontophoresis with Dexamethasone: 4 mg/mL Next Visit Focus/Plan Next Note Type Treatment Note Next Visit Plan Stretching/flexibility, STM, hip strengthening
--- NOTE | 2022-02-26 14:30 | PT.OTN ---
Current Diagnoses Pain in right hip (02/26/22) Pain in left hip (02/26/22) Trochanteric bursitis, right hip (02/26/22) Trochanteric bursitis, left hip (02/26/22) Physical Therapy Treatment Note PT-OP-A Visit Information Start: 02/11/22 15:21 Freq: Status: Active Protocol: Document 02/26/22 13:46 SP (Rec: 02/26/22 14:37 SP [id number]) Out-Patient Physical Therapy Visit Information Visit Information Visit Type Treatment Note Visit Note Vitals: seated post LE ex: SaO2 98% on 2L, HR 90bpm. Visit Start Time 13:46 Visit Stop Time 14:30 Total Visit Minutes 44 Visit Number 5 Number of HULL OUTFIT SUPERVISOR Visits 1 Evaluation Information Evaluation Date 02/11/22 PT-OP-B Current Condition Start: 02/11/22 15:21 Freq: Status: Active Protocol: Document 02/11/22 13:45 DCW (Rec: 02/11/22 15:40 DCW [id number]) Current Condition History of Current Condition Onset Date A couple years Current Complaints Lateral hip pain History of Current Condition Pt is an 86 year old female presenting with a multi-year history of bilateral lateral hip pain. Pt notes pain is very point specific directly inferior to her GT bilaterally . Notes increased pain with any walking, pain occurs immediately upon starting to walk. Reports she typically uses a 4WW for community ambulation, which does not prevent hip pain. Pt has not yet found anything that helps pain. Additionally, pt uses supplemental O2, but only at night, or when coming into her Dr appointments when she knows she'll need to be wearing a mask. Pt has difficulty breathing when supine, needs to either lie on her side or propped up. Pt also notes right anterior thigh numbness when standing longer than five minutes. Prior Treatments and Tests Pt previously treated at this facility in 2019 for low back and posterior hip pain. Treatment Goals Patient/Caregiver Goals Eliminate hip pain with walking PT-OP-C Subjective Start: 02/11/22 15:21 Freq: Status: Active Protocol: Document 02/26/22 13:46 SP (Rec: 02/26/22 14:37 SP [id number]) OP-PT Subjective Patient Comments Patient Comments Pt stated felt good after last tx with the US and iontophoresis patch didn't have any pain and has has less pain since. PT-OP-F Manual Assessment Start: 02/11/22 15:21 Freq: Status: Active Protocol: Document 02/11/22 13:45 DCW (Rec: 02/11/22 15:40 DCW [id number]) Manual Assessments Soft Tissue Assessment Soft Tissue Mobility Assessment Bilateral point-specific pain with palpation immediately next to greater trochanter bilaterally, no tenderness at any other points at this time. PT-OP-K Range of Motion Start: 02/11/22 15:21 Freq: Status: Active Protocol: Document 02/11/22 13:45 DCW (Rec: 02/11/22 15:40 DCW [id number]) Hip Goniometric Range of Motion Hip Right Active Hip ROM WFL Yes Testing Position Sitting Comments WNL, no notable pain Left Active Hip ROM WFL Yes Testing Position Sitting Comments WNL, no notable pain PT-OP-L Special Tests Start: 02/11/22 15:21 Freq: Status: Active Protocol: Document 02/11/22 13:45 DCW (Rec: 02/11/22 15:40 DCW [id number]) Special Tests Hip Special Tests Maria Esther's Test Test Results Negative Straight Leg Raise Test Results Negative PHIL Test Results Negative PT-OP-M Strength Start: 02/11/22 15:21 Freq: Status: Active Protocol: Document 02/11/22 13:45 DCW (Rec: 02/11/22 15:40 DCW [id number]) Hip Strength Hip Manual Muscle Testing Right Flexion (L2) 4+ Good+ Abduction 4 Good Adduction 4+ Good+ External Rotation 4+ Good+ Internal Rotation 4+ Good+ Left Flexion (L2) 4+ Good+ Abduction 4 Good Adduction 4+ Good+ External Rotation 4+ Good+ Internal Rotation 4+ Good+ PT-OP-Q Treatments Start: 02/11/22 15:21 Freq: Status: Active Protocol: Document 02/26/22 13:46 SP (Rec: 02/26/22 14:37 SP [id number]) Gym Equipment Shuttle Recovery Bilateral Squats Details black wedge and head rest for trunk support inclined Resistance 50# Shuttle Recovery Platform Stable Reps/Time x15 Therapeutic Exercises Supine Exercises fig 4 Side bilateral Reps/Minutes 30 Comments good response- states does sitting at home 2 Supine Exercise Name HS stretch Side bilateral Equipment Used w/ strap vs leaning hip hinge forward long sitting or seated in chair Comments Semi-recumbent 1 Supine Exercise Name ITB stretch Side bilateral Equipment Used w/ strap, inclined black table and wedge w/ 2 pillows under head Reps/Minutes 30 x2 Comments Semi-recumbent Sitting Exercises self STMs Sitting Exercise Name quad, ITB, HS, calf- long sit w/ knee bent Side bilateral Equipment Used rolling pin- also discussed racquetball onwall for glut/ lateral hip painfr Reps/Minutes 3 min total Comments good feedback response Standing Exercises 2 Standing Exercise Name Hip extension Side bilateral Resistance Yellow Equipment Used rail Reps/Minutes x10 Comments states feels just muscle postlateral hip working-cued knee extended 1 Standing Exercise Name Hip abduction Side bilateral Resistance TB #2 loop Reps/Minutes x10 Comments cued upright posture. Other Exercises 1 Other Exercise Name Resisted side and forward/ bachward-stepping Resistance Yellow TB- has loopTB at home uses Equipment Used rail and O2 tank support Reps/Minutes 20 ft x2 laps Comments reports pain B hips 7/10 PT-OP-R Modalities Start: 02/23/22 14:33 Freq: Status: Active Protocol: Document 02/26/22 13:46 SP (Rec: 02/26/22 14:37 SP [id number]) Iontophoresis Treatment Left Lateral Hip Treatment Medication Dexamethasone (-) Medication Amount (mL) (ml) 1.0 Medication Dosage 4 mg/mL Treatment Polarity Negative to Negative Active Electrode Placement GT bursa Ultrasound Therapy Treatment Left Lateral Hip Treatment Duration (minutes) 8 Patient Position Sidelying Coupling Medium Ultrasound Gel Applicator Size (cm2) 5 Frequency Setting (mHz) 1 Mode Setting Continuous Duty Cycle 100% Intensity Setting (w/cm2) 1.0 PT-OP-T Assessment and Plan Start: 02/11/22 15:21 Freq: Status: Active Protocol: Document 02/26/22 13:46 SP (Rec: 02/26/22 14:37 SP [id number]) Physical Therapy Assessment Goals Two Impairment Pt experiences increased pain immediately upon starting gait Mcfp Goal (LTG) Pt to report ability to ambulate for 15 minutes without increased pain in order to allow her to increase activity tolerance LTG Duration 04/13/22 One Impairment Pt does not have an appropriate home exercise program Short Term Goal (STG) Pt to be independent and compliant with an appropriate HEP STG Duration 03/13/22 Assessment Summary Assessment Pt good muscle effort response to standing exercises with resistance and proper form stretching modified incline due to can't lay flat. Educated pt on self STMs to LEs with good feedback response long sitting using rolling pin. Pt had good response to US and iontophoresis end of tx with reports of no pain and understanding remove patch in 4 hrs or sooner if experience adverse reacations. Physical Therapy Plan Frequency and Duration Frequency of Treatment 2x/Week Duration of Treatment Two months Plan of Care Start Date 02/11/22 Plan of Care End Date 04/13/22 Therapeutic Interventions Therapeutic Interventions Home Exercise Program,Manual Therapy,Neuromuscular Re- education,Patient/Caregiver Education,Self-Care/Home Management,Soft Tissue Mobilization,Taping, Therapeutic Activities, Therapeutic Exercises Modalities Cold Pack/Ice Massage,Electric Stimulation,Hot Packs, Iontophoresis,Ultrasound Other Therapeutic Interventions Iontophoresis with Dexamethasone: 4 mg/mL Next Visit Focus/Plan Next Note Type Treatment Note Next Visit Plan Progress gait and balance activities next tx. POC: Stretching/flexibility, STM, hip strengthening
--- NOTE | 2022-03-03 14:30 | PT.OTN ---
Current Diagnoses Pain in right hip (03/03/22) Pain in left hip (03/03/22) Trochanteric bursitis, right hip (03/03/22) Trochanteric bursitis, left hip (03/03/22) Physical Therapy Treatment Note PT-OP-A Visit Information Start: 02/11/22 15:21 Freq: Status: Active Protocol: Document 03/03/22 13:47 SP (Rec: 03/03/22 14:44 SP [id number]) Out-Patient Physical Therapy Visit Information Visit Information Visit Type Treatment Note Visit Start Time 13:47 Visit Stop Time 14:30 Total Visit Minutes 42 Visit Number 6 Number of MILLWRIGHT SUPERVISOR Visits 2 Evaluation Information Evaluation Date 02/11/22 PT-OP-B Current Condition Start: 02/11/22 15:21 Freq: Status: Active Protocol: Document 02/11/22 13:45 DCW (Rec: 02/11/22 15:40 DCW [id number]) Current Condition History of Current Condition Onset Date A couple years Current Complaints Lateral hip pain History of Current Condition Pt is an 86 year old female presenting with a multi-year history of bilateral lateral hip pain. Pt notes pain is very point specific directly inferior to her GT bilaterally . Notes increased pain with any walking, pain occurs immediately upon starting to walk. Reports she typically uses a 4WW for community ambulation, which does not prevent hip pain. Pt has not yet found anything that helps pain. Additionally, pt uses supplemental O2, but only at night, or when coming into her Dr appointments when she knows she'll need to be wearing a mask. Pt has difficulty breathing when supine, needs to either lie on her side or propped up. Pt also notes right anterior thigh numbness when standing longer than five minutes. Prior Treatments and Tests Pt previously treated at this facility in 2019 for low back and posterior hip pain. Treatment Goals Patient/Caregiver Goals Eliminate hip pain with walking PT-OP-C Subjective Start: 02/11/22 15:21 Freq: Status: Active Protocol: Document 03/03/22 13:47 SP (Rec: 03/03/22 14:44 SP [id number]) OP-PT Subjective Patient Comments Patient Comments Pt stated the patch helps alot , 50% less pain when walking now. PT-OP-F Manual Assessment Start: 02/11/22 15:21 Freq: Status: Active Protocol: Document 02/11/22 13:45 DCW (Rec: 02/11/22 15:40 DCW [id number]) Manual Assessments Soft Tissue Assessment Soft Tissue Mobility Assessment Bilateral point-specific pain with palpation immediately next to greater trochanter bilaterally, no tenderness at any other points at this time. PT-OP-K Range of Motion Start: 02/11/22 15:21 Freq: Status: Active Protocol: Document 02/11/22 13:45 DCW (Rec: 02/11/22 15:40 DCW [id number]) Hip Goniometric Range of Motion Hip Right Active Hip ROM WFL Yes Testing Position Sitting Comments WNL, no notable pain Left Active Hip ROM WFL Yes Testing Position Sitting Comments WNL, no notable pain PT-OP-L Special Tests Start: 02/11/22 15:21 Freq: Status: Active Protocol: Document 02/11/22 13:45 DCW (Rec: 02/11/22 15:40 DCW [id number]) Special Tests Hip Special Tests Maria Esther's Test Test Results Negative Straight Leg Raise Test Results Negative PHIL Test Results Negative PT-OP-M Strength Start: 02/11/22 15:21 Freq: Status: Active Protocol: Document 02/11/22 13:45 DCW (Rec: 02/11/22 15:40 DCW [id number]) Hip Strength Hip Manual Muscle Testing Right Flexion (L2) 4+ Good+ Abduction 4 Good Adduction 4+ Good+ External Rotation 4+ Good+ Internal Rotation 4+ Good+ Left Flexion (L2) 4+ Good+ Abduction 4 Good Adduction 4+ Good+ External Rotation 4+ Good+ Internal Rotation 4+ Good+ PT-OP-Q Treatments Start: 02/11/22 15:21 Freq: Status: Active Protocol: Document 03/03/22 13:47 SP (Rec: 03/03/22 14:44 SP [id number]) Cardio Equipment Recumbent Elliptical ([employer]) Duration (Minutes) 4 Resistance 1 Seat Position 8 Other LEs only Therapeutic Exercises Standing Exercises HS, calf stretch Standing Exercise Name gastroc, soleus, HS Side bilateral Resistance AROM Equipment Used rail Reps/Minutes 30 x2 Comments states does get LB stretch as well Other Exercises 1 Other Exercise Name Resisted side and forward/ bachward-stepping Resistance Red TB at mid knott Equipment Used rail, MILLWR[employer] SUPERVISOR managed O2 tank Reps/Minutes 20 ft x2 laps Comments reports good lateral hip work out, pain Manual Therapy Treatment Soft Tissue Mobilization ITB Body Location R ITB, glut med, piriformis Mobilization Type Strumming,Sustained Pressure, Trigger Point Release Intensity/Depth Moderate Body Position Sidelying Comments modifed recumbent on L side: elevated black table, black wedge and pillows under L side and between legs Neuro Re-Education Treatment Balance Activities SLS Surface firm Comments LLE 30 s RLE 40s Uneven surface\ Equipment blue foam cushions Comments stagger: firm head turns EC L forward 10s before LOB contact rail recovery EC R forward 30 s PT-OP-R Modalities Start: 02/23/22 14:33 Freq: Status: Active Protocol: Document 03/03/22 13:47 SP (Rec: 03/03/22 14:44 SP [id number]) Iontophoresis Treatment Left Lateral Hip Treatment Medication Dexamethasone (-) Medication Amount (mL) (ml) 1.0 Medication Dosage 4 mg/mL Treatment Polarity Negative to Negative Active Electrode Placement GT bursa Patient Tolerance Good PT-OP-T Assessment and Plan Start: 02/11/22 15:21 Freq: Status: Active Protocol: Document 03/03/22 13:47 SP (Rec: 03/03/22 14:44 SP [id number]) Physical Therapy Assessment Goals Two Impairment Pt experiences increased pain immediately upon starting gait Sleep Manager Goal (LTG) Pt to report ability to ambulate for 15 minutes without increased pain in order to allow her to increase activity tolerance LTG Duration 04/13/22 One Impairment Pt does not have an appropriate home exercise program Short Term Goal (STG) Pt to be independent and compliant with an appropriate HEP STG Duration 03/13/22 Assessment Summary Assessment Pt good effort, rest x2 seated throughout tx. Able to progress increase resistance and no UE support during band walk, balance EC and SLS today without UE support improvement with reports more muscle tiring work than pain. Pt reported would like to reapply iontophoresis patch today. Physical Therapy Plan Frequency and Duration Frequency of Treatment 2x/Week Duration of Treatment Two months Plan of Care Start Date 02/11/22 Plan of Care End Date 04/13/22 Therapeutic Interventions Therapeutic Interventions Home Exercise Program,Manual Therapy,Neuromuscular Re- education,Patient/Caregiver Education,Self-Care/Home Management,Soft Tissue Mobilization,Taping, Therapeutic Activities, Therapeutic Exercises Modalities Cold Pack/Ice Massage,Electric Stimulation,Hot Packs, Iontophoresis,Ultrasound Other Therapeutic Interventions Iontophoresis with Dexamethasone: 4 mg/mL Next Visit Focus/Plan Next Note Type Treatment Note Next Visit Plan Progress gait and balance activities next tx. POC: Stretching/flexibility, STM, hip strengthening
--- NOTE | 2022-03-05 14:33 | PT.OTN ---
Current Diagnoses Pain in right hip (03/05/22) Pain in left hip (03/05/22) Trochanteric bursitis, right hip (03/05/22) Trochanteric bursitis, left hip (03/05/22) Physical Therapy Treatment Note PT-OP-A Visit Information Start: 02/11/22 15:21 Freq: Status: Active Protocol: Document 03/05/22 13:40 SP (Rec: 03/05/22 14:34 SP [id number]) Out-Patient Physical Therapy Visit Information Visit Information Visit Type Treatment Note Visit Note SaO2 97% on 2L, 82HR Visit Start Time 13:40 Visit Stop Time 14:33 Total Visit Minutes 53 Visit Number 7 Number of STATISTICAL REPORTING ANALYST Visits 3 Evaluation Information Evaluation Date 02/11/22 Precautions Precautions O2: 2L PT-OP-B Current Condition Start: 02/11/22 15:21 Freq: Status: Active Protocol: Document 02/11/22 13:45 DCW (Rec: 02/11/22 15:40 DCW [id number]) Current Condition History of Current Condition Onset Date A couple years Current Complaints Lateral hip pain History of Current Condition Pt is an 86 year old female presenting with a multi-year history of bilateral lateral hip pain. Pt notes pain is very point specific directly inferior to her GT bilaterally . Notes increased pain with any walking, pain occurs immediately upon starting to walk. Reports she typically uses a 4WW for community ambulation, which does not prevent hip pain. Pt has not yet found anything that helps pain. Additionally, pt uses supplemental O2, but only at night, or when coming into her Dr appointments when she knows she'll need to be wearing a mask. Pt has difficulty breathing when supine, needs to either lie on her side or propped up. Pt also notes right anterior thigh numbness when standing longer than five minutes. Prior Treatments and Tests Pt previously treated at this facility in 2019 for low back and posterior hip pain. Treatment Goals Patient/Caregiver Goals Eliminate hip pain with walking PT-OP-C Subjective Start: 02/11/22 15:21 Freq: Status: Active Protocol: Document 03/05/22 13:40 SP (Rec: 03/05/22 14:34 SP [id number]) OP-PT Subjective Patient Comments Patient Comments Pt reported the massage last tx helped and iontopatch helps . She stated slept 8 hrs last night. PT-OP-F Manual Assessment Start: 02/11/22 15:21 Freq: Status: Active Protocol: Document 02/11/22 13:45 DCW (Rec: 02/11/22 15:40 DCW [id number]) Manual Assessments Soft Tissue Assessment Soft Tissue Mobility Assessment Bilateral point-specific pain with palpation immediately next to greater trochanter bilaterally, no tenderness at any other points at this time. PT-OP-K Range of Motion Start: 02/11/22 15:21 Freq: Status: Active Protocol: Document 02/11/22 13:45 DCW (Rec: 02/11/22 15:40 DCW [id number]) Hip Goniometric Range of Motion Hip Right Active Hip ROM WFL Yes Testing Position Sitting Comments WNL, no notable pain Left Active Hip ROM WFL Yes Testing Position Sitting Comments WNL, no notable pain PT-OP-L Special Tests Start: 02/11/22 15:21 Freq: Status: Active Protocol: Document 02/11/22 13:45 DCW (Rec: 02/11/22 15:40 DCW [id number]) Special Tests Hip Special Tests Maria Esther's Test Test Results Negative Straight Leg Raise Test Results Negative PHIL Test Results Negative PT-OP-M Strength Start: 02/11/22 15:21 Freq: Status: Active Protocol: Document 02/11/22 13:45 DCW (Rec: 02/11/22 15:40 DCW [id number]) Hip Strength Hip Manual Muscle Testing Right Flexion (L2) 4+ Good+ Abduction 4 Good Adduction 4+ Good+ External Rotation 4+ Good+ Internal Rotation 4+ Good+ Left Flexion (L2) 4+ Good+ Abduction 4 Good Adduction 4+ Good+ External Rotation 4+ Good+ Internal Rotation 4+ Good+ PT-OP-Q Treatments Start: 02/11/22 15:21 Freq: Status: Active Protocol: Document 03/05/22 13:40 SP (Rec: 03/05/22 14:34 SP [id number]) Cardio Equipment Recumbent Elliptical ([employer]) Duration (Minutes) 4 Resistance 1 Seat Position 8 Other LEs only, 30-35 RPM, good slow breath and able conver Gym Equipment Shuttle Recovery Unilateral Squats Details cued soft knee Resistance 37# Shuttle Recovery Platform Stable Reps/Time 2x10 Bilateral Squats Details black wedge, head rest, rolled towel- for trunk support inclined Resistance 50# Shuttle Recovery Platform Stable Reps/Time 2x10 Sport Cord green Exercise Details F/B/side stepping Reps/Duration 5 reps each direction Comments cued posture, core, slow eccentric control- 5%A initial direction Therapeutic Exercises Sitting Exercises STS Sitting Exercise Name arms across chest Equipment Used 18black table Reps/Minutes x10 Comments good form and muscle work HS, piriformis stretch Sitting Exercise Name hip IR, ER Side bilateral Reps/Minutes 60 Comments good form and stretch response PT-OP-R Modalities Start: 02/23/22 14:33 Freq: Status: Active Protocol: Document 03/05/22 13:40 SP (Rec: 03/05/22 14:34 SP [id number]) Iontophoresis Treatment Left Lateral Hip Treatment Medication Dexamethasone (-) Medication Amount (mL) (ml) 1.0 Medication Dosage 4 mg/mL Treatment Polarity Negative to Negative Active Electrode Placement GT bursa Patient Tolerance Good Ultrasound Therapy Treatment Left Lateral Hip Treatment Duration (minutes) 8 Patient Position Sidelying Coupling Medium Ultrasound Gel Applicator Size (cm2) 2 Frequency Setting (mHz) 1 Mode Setting Continuous Duty Cycle 100% Intensity Setting (w/cm2) 1.0 PT-OP-T Assessment and Plan Start: 02/11/22 15:21 Freq: Status: Active Protocol: Document 03/05/22 13:40 SP (Rec: 03/05/22 14:34 SP [id number]) Physical Therapy Assessment Goals Two Impairment Pt experiences increased pain immediately upon starting gait Alf Goal (LTG) Pt to report ability to ambulate for 15 minutes without increased pain in order to allow her to increase activity tolerance LTG Duration 04/13/22 One Impairment Pt does not have an appropriate home exercise program Short Term Goal (STG) Pt to be independent and compliant with an appropriate HEP STG Duration 03/13/22 Assessment Summary Assessment Pt reported good muscle effort activity, required rest and recovery between ther ex, maintained good vital values on 2L supplimental O2, modified incline during laying activities. Pt reported L hip irrritation end tx, improved painfree walking post US and Iontophoresis. Pt has reponded well to Iontophoresis to L hip with no adverse affects post tx, removes at 4 hrs post as instructed. Physical Therapy Plan Frequency and Duration Frequency of Treatment 2x/Week Duration of Treatment Two months Plan of Care Start Date 02/11/22 Plan of Care End Date 04/13/22 Therapeutic Interventions Therapeutic Interventions Home Exercise Program,Manual Therapy,Neuromuscular Re- education,Patient/Caregiver Education,Self-Care/Home Management,Soft Tissue Mobilization,Taping, Therapeutic Activities, Therapeutic Exercises Modalities Cold Pack/Ice Massage,Electric Stimulation,Hot Packs, Iontophoresis,Ultrasound Other Therapeutic Interventions Iontophoresis with Dexamethasone: 4 mg/mL Next Visit Focus/Plan Next Note Type Treatment Note Next Visit Plan REcheck response to shuttle rec, sport cord and STS last tx. Progress gait and balance activities next tx. POC: Stretching/flexibility, STM, hip strengthening
--- NOTE | 2022-03-09 14:31 | PT.OTN ---
Current Diagnoses Pain in right hip (03/09/22) Pain in left hip (03/09/22) Trochanteric bursitis, right hip (03/09/22) Trochanteric bursitis, left hip (03/09/22) Physical Therapy Treatment Note PT-OP-A Visit Information Start: 02/11/22 15:21 Freq: Status: Active Protocol: Document 03/09/22 13:45 DCW (Rec: 03/09/22 14:31 DCW [id number]) Out-Patient Physical Therapy Visit Information Visit Information Visit Type Treatment Note Visit Start Time 13:45 Visit Stop Time 14:30 Total Visit Minutes 45 Visit Number 8 Number of METAL MIXER Visits 0 Evaluation Information Evaluation Date 02/11/22 PT-OP-B Current Condition Start: 02/11/22 15:21 Freq: Status: Active Protocol: Document 02/11/22 13:45 DCW (Rec: 02/11/22 15:40 DCW [id number]) Current Condition History of Current Condition Onset Date A couple years Current Complaints Lateral hip pain History of Current Condition Pt is an 86 year old female presenting with a multi-year history of bilateral lateral hip pain. Pt notes pain is very point specific directly inferior to her GT bilaterally . Notes increased pain with any walking, pain occurs immediately upon starting to walk. Reports she typically uses a 4WW for community ambulation, which does not prevent hip pain. Pt has not yet found anything that helps pain. Additionally, pt uses supplemental O2, but only at night, or when coming into her Dr appointments when she knows she'll need to be wearing a mask. Pt has difficulty breathing when supine, needs to either lie on her side or propped up. Pt also notes right anterior thigh numbness when standing longer than five minutes. Prior Treatments and Tests Pt previously treated at this facility in 2019 for low back and posterior hip pain. Treatment Goals Patient/Caregiver Goals Eliminate hip pain with walking PT-OP-C Subjective Start: 02/11/22 15:21 Freq: Status: Active Protocol: Document 03/09/22 13:45 DCW (Rec: 03/09/22 14:31 DCW [id number]) OP-PT Subjective Patient Comments Patient Comments Pt reports she is feeling better. Does note that she has begun to have skin reaction to the Ionto patch, so she would like to stop using it. PT-OP-F Manual Assessment Start: 02/11/22 15:21 Freq: Status: Active Protocol: Document 02/11/22 13:45 DCW (Rec: 02/11/22 15:40 DCW [id number]) Manual Assessments Soft Tissue Assessment Soft Tissue Mobility Assessment Bilateral point-specific pain with palpation immediately next to greater trochanter bilaterally, no tenderness at any other points at this time. PT-OP-K Range of Motion Start: 02/11/22 15:21 Freq: Status: Active Protocol: Document 02/11/22 13:45 DCW (Rec: 02/11/22 15:40 DCW [id number]) Hip Goniometric Range of Motion Hip Right Active Hip ROM WFL Yes Testing Position Sitting Comments WNL, no notable pain Left Active Hip ROM WFL Yes Testing Position Sitting Comments WNL, no notable pain PT-OP-L Special Tests Start: 02/11/22 15:21 Freq: Status: Active Protocol: Document 02/11/22 13:45 DCW (Rec: 02/11/22 15:40 DCW [id number]) Special Tests Hip Special Tests Maria Esther's Test Test Results Negative Straight Leg Raise Test Results Negative PHIL Test Results Negative PT-OP-M Strength Start: 02/11/22 15:21 Freq: Status: Active Protocol: Document 02/11/22 13:45 DCW (Rec: 02/11/22 15:40 DCW [id number]) Hip Strength Hip Manual Muscle Testing Right Flexion (L2) 4+ Good+ Abduction 4 Good Adduction 4+ Good+ External Rotation 4+ Good+ Internal Rotation 4+ Good+ Left Flexion (L2) 4+ Good+ Abduction 4 Good Adduction 4+ Good+ External Rotation 4+ Good+ Internal Rotation 4+ Good+ PT-OP-Q Treatments Start: 02/11/22 15:21 Freq: Status: Active Protocol: Document 03/09/22 13:45 DCW (Rec: 03/09/22 14:31 DCW [id number]) Cardio Equipment Recumbent Elliptical ([employer]) Duration (Minutes) 4 Resistance 4 Seat Position 9 Other LEs only Therapeutic Exercises Standing Exercises 2 Standing Exercise Name Hip extension Side bilateral Resistance Red Equipment Used rail Reps/Minutes x10 Comments states feels just muscle postlateral hip working-cued knee extended 1 Standing Exercise Name Hip abduction Side bilateral Resistance Red Reps/Minutes x10 Comments cued upright posture. Other Exercises 1 Other Exercise Name Resisted side and forward/ backward-stepping Resistance Red Equipment Used rail, therapist managed O2 tank Reps/Minutes 20 ft x2 laps Comments reports good lateral hip work out, pain Manual Therapy Treatment Soft Tissue Mobilization ITB Body Location R ITB, glut med, piriformis Mobilization Type Strumming,Sustained Pressure, Trigger Point Release Intensity/Depth Moderate Body Position Sidelying Comments modifed recumbent on L side: elevated black table, black wedge and pillows under L side and between legs PT-OP-R Modalities Start: 02/23/22 14:33 Freq: Status: Active Protocol: Document 03/09/22 13:45 DCW (Rec: 03/09/22 14:31 DCW [id number]) Ultrasound Therapy Treatment Left Lateral Hip Treatment Duration (minutes) 10 Patient Position Sidelying Coupling Medium Ultrasound Gel Applicator Size (cm2) 5 Frequency Setting (mHz) 1 Mode Setting Continuous Duty Cycle 100% Intensity Setting (w/cm2) 1.0 Comments 5' each side PT-OP-T Assessment and Plan Start: 02/11/22 15:21 Freq: Status: Active Protocol: Document 03/09/22 13:45 DCW (Rec: 03/09/22 14:31 DCW [id number]) Physical Therapy Assessment Goals Two Impairment Pt experiences increased pain immediately upon starting gait Alf Goal (LTG) Pt to report ability to ambulate for 15 minutes without increased pain in order to allow her to increase activity tolerance LTG Duration 04/13/22 One Impairment Pt does not have an appropriate home exercise program Short Term Goal (STG) Pt to be independent and compliant with an appropriate HEP STG Duration 03/13/22 Assessment Summary Assessment Pt making good progress with pain control while walking, unfortunately will have to forego the Ionto due to beginning of skin reaction. Tolerating current treatment very well. Physical Therapy Plan Frequency and Duration Frequency of Treatment 2x/Week Duration of Treatment Two months Plan of Care Start Date 02/11/22 Plan of Care End Date 04/13/22 Therapeutic Interventions Therapeutic Interventions Home Exercise Program,Manual Therapy,Neuromuscular Re- education,Patient/Caregiver Education,Self-Care/Home Management,Soft Tissue Mobilization,Taping, Therapeutic Activities, Therapeutic Exercises Modalities Cold Pack/Ice Massage,Electric Stimulation,Hot Packs, Iontophoresis,Ultrasound Other Therapeutic Interventions Iontophoresis with Dexamethasone: 4 mg/mL Next Visit Focus/Plan Next Note Type Treatment Note Next Visit Plan Recheck response to shuttle rec, sport cord and STS last tx. Progress gait and balance activities next tx. POC: Stretching/flexibility, STM, hip strengthening
--- NOTE | 2022-03-24 13:06 | PT.OTN ---
Current Diagnoses Pain in right hip (03/24/22) Pain in left hip (03/24/22) Trochanteric bursitis, right hip (03/24/22) Trochanteric bursitis, left hip (03/24/22) Physical Therapy Treatment Note PT-OP-A Visit Information Start: 02/11/22 15:21 Freq: Status: Active Protocol: Document 03/24/22 12:16 SP (Rec: 03/24/22 13:08 SP [id number]) Out-Patient Physical Therapy Visit Information Visit Information Visit Type Treatment Note Visit Note PN next tx 10th visit. Visit Start Time 12:16 Visit Stop Time 13:06 Total Visit Minutes 50 Visit Number 9 Number of DISTRICT CLAIMS MANAGER Visits 1 Evaluation Information Evaluation Date 02/11/22 Precautions Precautions O2: 2L PT-OP-B Current Condition Start: 02/11/22 15:21 Freq: Status: Active Protocol: Document 02/11/22 13:45 DCW (Rec: 02/11/22 15:40 DCW [id number]) Current Condition History of Current Condition Onset Date A couple years Current Complaints Lateral hip pain History of Current Condition Pt is an 86 year old female presenting with a multi-year history of bilateral lateral hip pain. Pt notes pain is very point specific directly inferior to her GT bilaterally . Notes increased pain with any walking, pain occurs immediately upon starting to walk. Reports she typically uses a 4WW for community ambulation, which does not prevent hip pain. Pt has not yet found anything that helps pain. Additionally, pt uses supplemental O2, but only at night, or when coming into her Dr appointments when she knows she'll need to be wearing a mask. Pt has difficulty breathing when supine, needs to either lie on her side or propped up. Pt also notes right anterior thigh numbness when standing longer than five minutes. Prior Treatments and Tests Pt previously treated at this facility in 2019 for low back and posterior hip pain. Treatment Goals Patient/Caregiver Goals Eliminate hip pain with walking PT-OP-C Subjective Start: 02/11/22 15:21 Freq: Status: Active Protocol: Document 03/24/22 12:16 SP (Rec: 03/24/22 13:08 SP [id number]) OP-PT Subjective Patient Comments Patient Comments Pt reports feels PT making a difference. SHe stated no walking on her treadmill at home 1.2mph with little incline and notices not having the R hip pain with holding side rails, 20 min. She states uses a CPAP with full face and thinks wakes up, good PT-OP-F Manual Assessment Start: 02/11/22 15:21 Freq: Status: Active Protocol: Document 02/11/22 13:45 DCW (Rec: 02/11/22 15:40 DCW [id number]) Manual Assessments Soft Tissue Assessment Soft Tissue Mobility Assessment Bilateral point-specific pain with palpation immediately next to greater trochanter bilaterally, no tenderness at any other points at this time. PT-OP-K Range of Motion Start: 02/11/22 15:21 Freq: Status: Active Protocol: Document 02/11/22 13:45 DCW (Rec: 02/11/22 15:40 DCW [id number]) Hip Goniometric Range of Motion Hip Right Active Hip ROM WFL Yes Testing Position Sitting Comments WNL, no notable pain Left Active Hip ROM WFL Yes Testing Position Sitting Comments WNL, no notable pain PT-OP-L Special Tests Start: 02/11/22 15:21 Freq: Status: Active Protocol: Document 02/11/22 13:45 DCW (Rec: 02/11/22 15:40 DCW [id number]) Special Tests Hip Special Tests Maria Esther's Test Test Results Negative Straight Leg Raise Test Results Negative PHIL Test Results Negative PT-OP-M Strength Start: 02/11/22 15:21 Freq: Status: Active Protocol: Document 02/11/22 13:45 DCW (Rec: 02/11/22 15:40 DCW [id number]) Hip Strength Hip Manual Muscle Testing Right Flexion (L2) 4+ Good+ Abduction 4 Good Adduction 4+ Good+ External Rotation 4+ Good+ Internal Rotation 4+ Good+ Left Flexion (L2) 4+ Good+ Abduction 4 Good Adduction 4+ Good+ External Rotation 4+ Good+ Internal Rotation 4+ Good+ PT-OP-Q Treatments Start: 02/11/22 15:21 Freq: Status: Active Protocol: Document 03/24/22 12:16 SP (Rec: 03/24/22 13:08 SP [id number]) Cardio Equipment Recumbent Elliptical ([employer]) Duration (Minutes) 6 Resistance 4 Seat Position 9 Other LEs only Gym Equipment Shuttle Recovery Unilateral Squats Details black wedge, head rest for trunk support inclined Resistance 37# R, 25# L Shuttle Recovery Platform Stable Reps/Time xx20 cued soft knee Bilateral Squats Details black wedge, head rest for trunk support inclined Resistance 50#> 62# Shuttle Recovery Platform Stable Reps/Time x25 Therapeutic Exercises Sitting Exercises STS Sitting Exercise Name arms across chest Equipment Used mesh chair Reps/Minutes x10 Comments states quads tired but not pain HS, piriformis stretch Sitting Exercise Name hip IR, ER Side bilateral Reps/Minutes 60 x2 Comments good form and stretch response Other Exercises 1 Other Exercise Name Resisted side and forward/ backward-stepping Resistance Red Equipment Used rail, pt managed O2 tank Reps/Minutes 20 ft x2 laps Comments reports good lateral hip work out, pain Gait Training Gait Activity 6MWT Description cued confortable pacing for energy conservation and breath Device Used pulling portable O2 tank Level of Assistance S Surface carpet, tile Distance/Duration 502 ft in 3 min 56 sec Treatment Focus endurance baseline assessment Comments SaO2 97% on 2L, HR 92bpm post Reported B hip pain 8/10 by end with +SOB. Manual Therapy Treatment Soft Tissue Mobilization ITB Body Location L>R ITB, glut med, piriformis Mobilization Type Strumming,Sustained Pressure, Trigger Point Release Intensity/Depth Moderate Body Position Sidelying Comments modifed recumbent on L side: elevated black table, black wedge and pillows under L side and between legs PT-OP-R Modalities Start: 02/23/22 14:33 Freq: Status: Active Protocol: Document 03/24/22 12:16 SP (Rec: 03/24/22 13:08 SP [id number]) Ultrasound Therapy Treatment Left Lateral Hip Treatment Duration (minutes) 8 Patient Position Sidelying Coupling Medium Ultrasound Gel Applicator Size (cm2) 5 Frequency Setting (mHz) 1 Mode Setting Continuous Duty Cycle 100% Intensity Setting (w/cm2) 1.0 Comments 5' each side R and L hips PT-OP-T Assessment and Plan Start: 02/11/22 15:21 Freq: Status: Active Protocol: Document 03/24/22 12:16 SP (Rec: 03/24/22 13:08 SP [id number]) Physical Therapy Assessment Goals Two Impairment Pt experiences increased pain immediately upon starting gait Computer Installer Goal (LTG) Pt to report ability to ambulate for 15 minutes without increased pain in order to allow her to increase activity tolerance 03/24/22: progressing: Pt states walked on TM 1.2mph with little incline yesterday for 20 min and no hip pain but B hip pain with gait today. LTG Duration 04/13/22 progressing One Impairment Pt does not have an appropriate home exercise program Short Term Goal (STG) Pt to be independent and compliant with an appropriate HEP STG Duration 03/13/22 Assessment Summary Assessment Pt responded well to hip muscle tirin during standing band walk and bike, responds well to stretching but had pain in B hip and increase respiratory rate during gait endurance assessment today. Pt requested manual and US end tx for relief, good feedback response. Physical Therapy Plan Frequency and Duration Frequency of Treatment 2x/Week Duration of Treatment Two months Plan of Care Start Date 02/11/22 Plan of Care End Date 04/13/22 Therapeutic Interventions Therapeutic Interventions Home Exercise Program,Manual Therapy,Neuromuscular Re- education,Patient/Caregiver Education,Self-Care/Home Management,Soft Tissue Mobilization,Taping, Therapeutic Activities, Therapeutic Exercises Modalities Cold Pack/Ice Massage,Electric Stimulation,Hot Packs, Iontophoresis,Ultrasound Other Therapeutic Interventions Iontophoresis with Dexamethasone: 4 mg/mL Next Visit Focus/Plan Next Note Type Treatment Note Next Visit Plan Continue shuttle rec, sport cord and STS for strengthening . Progress gait and balance activities next tx. POC: Stretching/flexibility, STM, hip strengthening
--- NOTE | 2022-03-29 14:32 | PT.OTN ---
Current Diagnoses Pain in right hip (03/29/22) Pain in left hip (03/29/22) Trochanteric bursitis, right hip (03/29/22) Trochanteric bursitis, left hip (03/29/22) Physical Therapy Treatment Note PT-OP-A Visit Information Start: 02/11/22 15:21 Freq: Status: Active Protocol: Document 03/29/22 13:45 DCW (Rec: 03/29/22 14:31 DCW [id number]) Out-Patient Physical Therapy Visit Information Visit Information Visit Type Progress Note Visit Start Time 13:45 Visit Stop Time 14:30 Total Visit Minutes 45 Visit Number 10 Number of OCTAVE BOARD RACKER Visits 0 Evaluation Information Evaluation Date 02/11/22 Precautions Precautions O2: 2L PT-OP-B Current Condition Start: 02/11/22 15:21 Freq: Status: Active Protocol: Document 02/11/22 13:45 DCW (Rec: 02/11/22 15:40 DCW [id number]) Current Condition History of Current Condition Onset Date A couple years Current Complaints Lateral hip pain History of Current Condition Pt is an 86 year old female presenting with a multi-year history of bilateral lateral hip pain. Pt notes pain is very point specific directly inferior to her GT bilaterally . Notes increased pain with any walking, pain occurs immediately upon starting to walk. Reports she typically uses a 4WW for community ambulation, which does not prevent hip pain. Pt has not yet found anything that helps pain. Additionally, pt uses supplemental O2, but only at night, or when coming into her Dr appointments when she knows she'll need to be wearing a mask. Pt has difficulty breathing when supine, needs to either lie on her side or propped up. Pt also notes right anterior thigh numbness when standing longer than five minutes. Prior Treatments and Tests Pt previously treated at this facility in 2019 for low back and posterior hip pain. Treatment Goals Patient/Caregiver Goals Eliminate hip pain with walking PT-OP-C Subjective Start: 02/11/22 15:21 Freq: Status: Active Protocol: Document 03/29/22 13:45 DCW (Rec: 03/29/22 14:31 DCW [id number]) OP-PT Subjective Patient Comments Patient Comments Pt notes her hip are doing better, still having some increased pain when walking. PT-OP-F Manual Assessment Start: 02/11/22 15:21 Freq: Status: Active Protocol: Document 02/11/22 13:45 DCW (Rec: 02/11/22 15:40 DCW [id number]) Manual Assessments Soft Tissue Assessment Soft Tissue Mobility Assessment Bilateral point-specific pain with palpation immediately next to greater trochanter bilaterally, no tenderness at any other points at this time. PT-OP-K Range of Motion Start: 02/11/22 15:21 Freq: Status: Active Protocol: Document 02/11/22 13:45 DCW (Rec: 02/11/22 15:40 DCW [id number]) Hip Goniometric Range of Motion Hip Right Active Hip ROM WFL Yes Testing Position Sitting Comments WNL, no notable pain Left Active Hip ROM WFL Yes Testing Position Sitting Comments WNL, no notable pain PT-OP-L Special Tests Start: 02/11/22 15:21 Freq: Status: Active Protocol: Document 02/11/22 13:45 DCW (Rec: 02/11/22 15:40 DCW [id number]) Special Tests Hip Special Tests Maria Esther's Test Test Results Negative Straight Leg Raise Test Results Negative PHIL Test Results Negative PT-OP-M Strength Start: 02/11/22 15:21 Freq: Status: Active Protocol: Document 02/11/22 13:45 DCW (Rec: 02/11/22 15:40 DCW [id number]) Hip Strength Hip Manual Muscle Testing Right Flexion (L2) 4+ Good+ Abduction 4 Good Adduction 4+ Good+ External Rotation 4+ Good+ Internal Rotation 4+ Good+ Left Flexion (L2) 4+ Good+ Abduction 4 Good Adduction 4+ Good+ External Rotation 4+ Good+ Internal Rotation 4+ Good+ PT-OP-Q Treatments Start: 02/11/22 15:21 Freq: Status: Active Protocol: Document 03/29/22 13:45 DCW (Rec: 03/29/22 14:31 DCW [id number]) Cardio Equipment Recumbent Elliptical (BiodTapFame) Duration (Minutes) 6 Resistance 4 Seat Position 9 Other LEs only Gym Equipment Shuttle Recovery Unilateral Squats Details black wedge, head rest for trunk support inclined Resistance 37# Shuttle Recovery Platform Stable Reps/Time xx20 cued soft knee Bilateral Squats Details black wedge, head rest for trunk support inclined Resistance 62# Shuttle Recovery Platform Stable Reps/Time x25 Therapeutic Exercises Sitting Exercises STS Sitting Exercise Name arms across chest Equipment Used mesh chair Reps/Minutes x10 Comments states quads tired but not pain HS, piriformis stretch Sitting Exercise Name hip IR, ER Side bilateral Reps/Minutes 60 x2 Comments good form and stretch response Standing Exercises 2 Standing Exercise Name Hip extension Side bilateral Resistance Red Equipment Used rail Reps/Minutes x10 Comments states feels just muscle postlateral hip working-cued knee extended 1 Standing Exercise Name Hip abduction Side bilateral Resistance Red Reps/Minutes x10 Comments cued upright posture. Manual Therapy Treatment Soft Tissue Mobilization ITB Body Location L>R ITB, glut med, piriformis Mobilization Type Strumming,Sustained Pressure, Trigger Point Release Intensity/Depth Moderate Body Position Semi-Recumbent PT-OP-R Modalities Start: 02/23/22 14:33 Freq: Status: Active Protocol: Document 03/24/22 12:16 SP (Rec: 03/24/22 13:08 SP [id number]) Ultrasound Therapy Treatment Left Lateral Hip Treatment Duration (minutes) 8 Patient Position Sidelying Coupling Medium Ultrasound Gel Applicator Size (cm2) 5 Frequency Setting (mHz) 1 Mode Setting Continuous Duty Cycle 100% Intensity Setting (w/cm2) 1.0 Comments 5' each side R and L hips PT-OP-T Assessment and Plan Start: 02/11/22 15:21 Freq: Status: Active Protocol: Document 03/29/22 13:45 DCW (Rec: 03/29/22 14:31 DCW [id number]) Physical Therapy Assessment Goals Two Impairment Pt experiences increased pain immediately upon starting gait Rn Patient Care Goal (LTG) Pt to report ability to ambulate for 15 minutes without increased pain in order to allow her to increase activity tolerance 03/24/22: progressing: Pt states walked on TM 1.2mph with little incline yesterday for 20 min and no hip pain but B hip pain with gait today. LTG Duration 04/13/22 progressing One Impairment Pt does not have an appropriate home exercise program Short Term Goal (STG) Pt to be independent and compliant with an appropriate HEP STG Duration 03/13/22 - improving Assessment Summary Assessment Pt tolerated treatment well, showing good progression since initial evaluation. Pt having substantially less pain with all activities, still limited some with ambulation distance. Tenderness to palpation minimal at this time. Physical Therapy Plan Frequency and Duration Frequency of Treatment 2x/Week Duration of Treatment Two months Plan of Care Start Date 02/11/22 Plan of Care End Date 04/13/22 Therapeutic Interventions Therapeutic Interventions Home Exercise Program,Manual Therapy,Neuromuscular Re- education,Patient/Caregiver Education,Self-Care/Home Management,Soft Tissue Mobilization,Taping, Therapeutic Activities, Therapeutic Exercises Modalities Cold Pack/Ice Massage,Electric Stimulation,Hot Packs, Iontophoresis,Ultrasound Other Therapeutic Interventions Iontophoresis with Dexamethasone: 4 mg/mL Next Visit Focus/Plan Next Note Type Treatment Note Next Visit Plan Continue shuttle rec, sport cord and STS for strengthening . Progress gait and balance activities next tx. POC: Stretching/flexibility, STM, hip strengthening
--- NOTE | 2022-04-09 15:17 | PT.OTN ---
Current Diagnoses Pain in right hip (04/09/22) Pain in left hip (04/09/22) Trochanteric bursitis, right hip (04/09/22) Trochanteric bursitis, left hip (04/09/22) Physical Therapy Treatment Note PT-OP-A Visit Information Start: 02/11/22 15:21 Freq: Status: Active Protocol: Document 04/09/22 14:34 SP (Rec: 04/09/22 15:45 SP [id number]) Out-Patient Physical Therapy Visit Information Visit Information Visit Type Treatment Note Visit Note SPTA assisted w/neuro and dynamic gait w/ direct supervision by CHRIST Wilkins. Visit Start Time 14:34 Visit Stop Time 15:17 Total Visit Minutes 43 Visit Number 11 Number of SURGICAL ASST Visits 1 Evaluation Information Evaluation Date 02/11/22 Precautions Precautions O2: 2L PT-OP-B Current Condition Start: 02/11/22 15:21 Freq: Status: Active Protocol: Document 02/11/22 13:45 DCW (Rec: 02/11/22 15:40 DCW [id number]) Current Condition History of Current Condition Onset Date A couple years Current Complaints Lateral hip pain History of Current Condition Pt is an 86 year old female presenting with a multi-year history of bilateral lateral hip pain. Pt notes pain is very point specific directly inferior to her GT bilaterally . Notes increased pain with any walking, pain occurs immediately upon starting to walk. Reports she typically uses a 4WW for community ambulation, which does not prevent hip pain. Pt has not yet found anything that helps pain. Additionally, pt uses supplemental O2, but only at night, or when coming into her Dr appointments when she knows she'll need to be wearing a mask. Pt has difficulty breathing when supine, needs to either lie on her side or propped up. Pt also notes right anterior thigh numbness when standing longer than five minutes. Prior Treatments and Tests Pt previously treated at this facility in 2019 for low back and posterior hip pain. Treatment Goals Patient/Caregiver Goals Eliminate hip pain with walking PT-OP-C Subjective Start: 02/11/22 15:21 Freq: Status: Active Protocol: Document 04/09/22 14:34 SP (Rec: 04/09/22 15:45 SP [id number]) OP-PT Subjective Patient Comments Patient Comments Pt states sometimes wakes up a night sleeping on R, can't sleep in L due to breathing to hard, good response to pillows between BLE sleeping for support. She states her back pain is more limiting with standing endurance activities than R hip. Patient Reported Progress Improving PT-OP-F Manual Assessment Start: 02/11/22 15:21 Freq: Status: Active Protocol: Document 02/11/22 13:45 DCW (Rec: 02/11/22 15:40 DCW [id number]) Manual Assessments Soft Tissue Assessment Soft Tissue Mobility Assessment Bilateral point-specific pain with palpation immediately next to greater trochanter bilaterally, no tenderness at any other points at this time. PT-OP-K Range of Motion Start: 02/11/22 15:21 Freq: Status: Active Protocol: Document 02/11/22 13:45 DCW (Rec: 02/11/22 15:40 DCW [id number]) Hip Goniometric Range of Motion Hip Right Active Hip ROM WFL Yes Testing Position Sitting Comments WNL, no notable pain Left Active Hip ROM WFL Yes Testing Position Sitting Comments WNL, no notable pain PT-OP-L Special Tests Start: 02/11/22 15:21 Freq: Status: Active Protocol: Document 02/11/22 13:45 DCW (Rec: 02/11/22 15:40 DCW [id number]) Special Tests Hip Special Tests Maria Esther's Test Test Results Negative Straight Leg Raise Test Results Negative PHIL Test Results Negative PT-OP-M Strength Start: 02/11/22 15:21 Freq: Status: Active Protocol: Document 02/11/22 13:45 DCW (Rec: 02/11/22 15:40 DCW [id number]) Hip Strength Hip Manual Muscle Testing Right Flexion (L2) 4+ Good+ Abduction 4 Good Adduction 4+ Good+ External Rotation 4+ Good+ Internal Rotation 4+ Good+ Left Flexion (L2) 4+ Good+ Abduction 4 Good Adduction 4+ Good+ External Rotation 4+ Good+ Internal Rotation 4+ Good+ PT-OP-Q Treatments Start: 02/11/22 15:21 Freq: Status: Active Protocol: Document 04/09/22 14:34 SP (Rec: 04/09/22 15:45 SP [id number]) Cardio Equipment Recumbent Elliptical (BiodVlingo) Duration (Minutes) 6 Resistance 4 Seat Position 9 Other LEs only, Gym Equipment Shuttle Recovery Unilateral Squats Details black wedge, head rest for trunk support inclined, pillow under head Resistance 37# R, 25>37# L Shuttle Recovery Platform Stable Reps/Time x25 Bilateral Squats Details black wedge, head rest for trunk support inclined Resistance 62# Shuttle Recovery Platform Stable Reps/Time x25 Shuttle Balance Red Details Wide EULALIA, Staggered Comments 1. wt shift 2. Head turns, vertical CGA - 10% A Gait Training Gait Activity dynamic gait Description head turns, vertical, quick stops while carrying a cup water Device Used none Level of Assistance CGA Surface firm Distance/Duration 80ft x2 laps Treatment Focus center EULALIA/ trunk alignment, balance recovery Comments Pt demonstrated vier L when turns head left. Manual Therapy Treatment Soft Tissue Mobilization Paraspinals Body Location Paraspinals, QL, glute max, piriformis, glute med. Mobilization Type Cross-Friction,Myofascial Release Intensity/Depth Moderate Body Position Sidelying w/ wedge and pillow prop Comments Manual and discussion reviewed for self STM w/ ball on wall that pt does perform at home. Neuro Re-Education Treatment Balance Activities SLS Surface firm Self-Care/Home Management Treatment Education Patient Education Pain Management Other Education During manual, discussion about past HEP for low back. Pt does bicycle, marching, seated trunk flexion. PT-OP-R Modalities Start: 02/23/22 14:33 Freq: Status: Active Protocol: Document 03/24/22 12:16 SP (Rec: 03/24/22 13:08 SP [id number]) Ultrasound Therapy Treatment Left Lateral Hip Treatment Duration (minutes) 8 Patient Position Sidelying Coupling Medium Ultrasound Gel Applicator Size (cm2) 5 Frequency Setting (mHz) 1 Mode Setting Continuous Duty Cycle 100% Intensity Setting (w/cm2) 1.0 Comments 5' each side R and L hips PT-OP-T Assessment and Plan Start: 02/11/22 15:21 Freq: Status: Active Protocol: Document 04/09/22 14:34 SP (Rec: 04/09/22 15:45 SP [id number]) Physical Therapy Assessment Goals Two Impairment Pt experiences increased pain immediately upon starting gait Fpc Goal (LTG) Pt to report ability to ambulate for 15 minutes without increased pain in order to allow her to increase activity tolerance 03/24/22: progressing: Pt states walked on TM 1.2mph with little incline yesterday for 20 min and no hip pain but B hip pain with gait today. LTG Duration 04/13/22 progressing One Impairment Pt does not have an appropriate home exercise program Short Term Goal (STG) Pt to be independent and compliant with an appropriate HEP STG Duration 03/13/22 - improving Assessment Summary Assessment Pt increased tolerance in wt & reps of LLE during unilateral shuttle squats. Pt was able to complete dynamic head turns with gait, noted L viering with L turn but no LOB, cued centering for self correction toward R. Pt improved stability on shuttle balance with core and hip abd fac with time spent and able to incorporated head turns, she stated though increase respiratory rate today with heat compared to last tx didn' t need supplimental O2 on shuttle balance. She reported LB felt better post manual end tx leaving. Physical Therapy Plan Frequency and Duration Frequency of Treatment 2x/Week Duration of Treatment Two months Plan of Care Start Date 02/11/22 Plan of Care End Date 04/13/22 Therapeutic Interventions Therapeutic Interventions Home Exercise Program,Manual Therapy,Neuromuscular Re- education,Patient/Caregiver Education,Self-Care/Home Management,Soft Tissue Mobilization,Taping, Therapeutic Activities, Therapeutic Exercises Modalities Cold Pack/Ice Massage,Electric Stimulation,Hot Packs, Iontophoresis,Ultrasound Other Therapeutic Interventions Iontophoresis with Dexamethasone: 4 mg/mL Next Visit Focus/Plan Next Note Type Treatment Note Next Visit Plan Pt suggested trial manual beginning/ pre activity in future and see if decreases LB with activities. POC: Continue shuttle rec, sport cord and STS for strengthening. Progress gait and balance activities next tx. POC: Stretching/flexibility, STM, hip strengthening
--- NOTE | 2022-04-21 12:47 | PT.OTN ---
Current Diagnoses Pain in right hip (04/21/22) Pain in left hip (04/21/22) Trochanteric bursitis, right hip (04/21/22) Trochanteric bursitis, left hip (04/21/22) Physical Therapy Treatment Note PT-OP-A Visit Information Start: 02/11/22 15:21 Freq: Status: Active Protocol: Document 04/21/22 12:00 DCW (Rec: 04/21/22 12:46 DCW [id number]) Out-Patient Physical Therapy Visit Information Visit Information Visit Type Progress Note Visit Start Time 12:00 Visit Stop Time 12:45 Total Visit Minutes 45 Visit Number 12 Number of FIRST MATE Visits 0 Evaluation Information Evaluation Date 02/11/22 Precautions Precautions O2: 2L PT-OP-B Current Condition Start: 02/11/22 15:21 Freq: Status: Active Protocol: Document 02/11/22 13:45 DCW (Rec: 02/11/22 15:40 DCW [id number]) Current Condition History of Current Condition Onset Date A couple years Current Complaints Lateral hip pain History of Current Condition Pt is an 86 year old female presenting with a multi-year history of bilateral lateral hip pain. Pt notes pain is very point specific directly inferior to her GT bilaterally . Notes increased pain with any walking, pain occurs immediately upon starting to walk. Reports she typically uses a 4WW for community ambulation, which does not prevent hip pain. Pt has not yet found anything that helps pain. Additionally, pt uses supplemental O2, but only at night, or when coming into her Dr appointments when she knows she'll need to be wearing a mask. Pt has difficulty breathing when supine, needs to either lie on her side or propped up. Pt also notes right anterior thigh numbness when standing longer than five minutes. Prior Treatments and Tests Pt previously treated at this facility in 2019 for low back and posterior hip pain. Treatment Goals Patient/Caregiver Goals Eliminate hip pain with walking PT-OP-C Subjective Start: 02/11/22 15:21 Freq: Status: Active Protocol: Document 04/21/22 12:00 DCW (Rec: 04/21/22 12:46 DCW [id number]) OP-PT Subjective Patient Comments Patient Comments Pt feeling like she is making good progress, still some occasional mild pain along lateral hip. PT-OP-F Manual Assessment Start: 02/11/22 15:21 Freq: Status: Active Protocol: Document 04/21/22 12:00 DCW (Rec: 04/21/22 12:08 DCW [id number]) Manual Assessments Soft Tissue Assessment Soft Tissue Mobility Assessment Mild bilateral point-specific pain with palpation immediately next to greater trochanter bilaterally, no tenderness at any other points at this time. PT-OP-K Range of Motion Start: 02/11/22 15:21 Freq: Status: Active Protocol: Document 02/11/22 13:45 DCW (Rec: 02/11/22 15:40 DCW [id number]) Hip Goniometric Range of Motion Hip Right Active Hip ROM WFL Yes Testing Position Sitting Comments WNL, no notable pain Left Active Hip ROM WFL Yes Testing Position Sitting Comments WNL, no notable pain PT-OP-L Special Tests Start: 02/11/22 15:21 Freq: Status: Active Protocol: Document 02/11/22 13:45 DCW (Rec: 02/11/22 15:40 DCW [id number]) Special Tests Hip Special Tests Maria Esther's Test Test Results Negative Straight Leg Raise Test Results Negative PHIL Test Results Negative PT-OP-M Strength Start: 02/11/22 15:21 Freq: Status: Active Protocol: Document 04/21/22 12:00 DCW (Rec: 04/21/22 12:08 DCW [id number]) Hip Strength Hip Manual Muscle Testing Right Flexion (L2) 4+ Good+ Abduction 4 Good Adduction 4+ Good+ External Rotation 4+ Good+ Internal Rotation 4+ Good+ Left Flexion (L2) 4+ Good+ Abduction 4 Good Adduction 4+ Good+ External Rotation 4+ Good+ Internal Rotation 4+ Good+ PT-OP-Q Treatments Start: 02/11/22 15:21 Freq: Status: Active Protocol: Document 04/21/22 12:00 DCW (Rec: 04/21/22 12:46 DCW [id number]) Cardio Equipment Recumbent Elliptical (Biodex) Duration (Minutes) 6 Resistance 4 Seat Position 9 Other LEs only, Gym Equipment Shuttle Recovery Unilateral Squats Details black wedge, head rest for trunk support inclined Resistance 50# Shuttle Recovery Platform Stable Reps/Time x20 Bilateral Squats Details black wedge, head rest for trunk support inclined Resistance 100# Shuttle Recovery Platform Stable Reps/Time x25 Therapeutic Exercises Standing Exercises 2 Standing Exercise Name Hip extension Side bilateral Resistance Red Equipment Used rail Reps/Minutes x10 Comments states feels just muscle postlateral hip working-cued knee extended 1 Standing Exercise Name Hip abduction Side bilateral Resistance Red Reps/Minutes x10 Comments cued upright posture. Manual Therapy Treatment Soft Tissue Mobilization Paraspinals Body Location Paraspinals, QL, glute max, piriformis, glute med. Mobilization Type Cross-Friction,Myofascial Release Intensity/Depth Moderate Body Position Sidelying w/ wedge and pillow prop Comments Manual and discussion reviewed for self STM w/ ball on wall that pt does perform at home. ITB Body Location L>R ITB, glut med, piriformis Mobilization Type Strumming,Sustained Pressure, Trigger Point Release Intensity/Depth Moderate Body Position Sidelying w/ wedge and pillow prop PT-OP-R Modalities Start: 02/23/22 14:33 Freq: Status: Active Protocol: Document 03/24/22 12:16 SP (Rec: 03/24/22 13:08 SP [id number]) Ultrasound Therapy Treatment Left Lateral Hip Treatment Duration (minutes) 8 Patient Position Sidelying Coupling Medium Ultrasound Gel Applicator Size (cm2) 5 Frequency Setting (mHz) 1 Mode Setting Continuous Duty Cycle 100% Intensity Setting (w/cm2) 1.0 Comments 5' each side R and L hips PT-OP-T Assessment and Plan Start: 02/11/22 15:21 Freq: Status: Active Protocol: Document 04/21/22 12:00 DCW (Rec: 04/21/22 12:46 DCW [id number]) Physical Therapy Assessment Goals Two Impairment Pt experiences increased pain immediately upon starting gait Hydrotechnical Specialist Goal (LTG) Pt to report ability to ambulate for 15 minutes without increased pain in order to allow her to increase activity tolerance 03/24/22: progressing: Pt states walked on TM 1.2mph with little incline yesterday for 20 min and no hip pain but B hip pain with gait today. LTG Duration 05/12/22 progressing One Impairment Pt does not have an appropriate home exercise program Short Term Goal (STG) Pt to be independent and compliant with an appropriate HEP STG Duration 05/12/22 - improving Assessment Summary Assessment Pt doing well overall, significantly less pain in hips, still limited with gait due to low back pain, pt would continue to benefit from skilled therapy working now on improving low back mobility and core strength, along with setting up additional independent HEP. Physical Therapy Plan Frequency and Duration Frequency of Treatment 1-2x/week Duration of Treatment Three weeks Plan of Care Start Date 04/21/22 Plan of Care End Date 05/12/22 Therapeutic Interventions Therapeutic Interventions Home Exercise Program,Manual Therapy,Neuromuscular Re- education,Patient/Caregiver Education,Self-Care/Home Management,Soft Tissue Mobilization,Taping, Therapeutic Activities, Therapeutic Exercises Modalities Cold Pack/Ice Massage,Electric Stimulation,Hot Packs, Iontophoresis,Ultrasound Other Therapeutic Interventions Iontophoresis with Dexamethasone: 4 mg/mL Next Visit Focus/Plan Next Note Type Treatment Note Next Visit Plan Pt suggested trial manual beginning/ pre activity in future and see if decreases LB with activities. POC: Continue shuttle rec, sport cord and STS for strengthening. Progress gait and balance activities next tx. POC: Stretching/flexibility, STM, hip strengthening
--- NOTE | 2022-04-21 12:47 | PT.OPPOC ---
Physical, Occupational & Speech Therapy At [facility] Current Diagnoses Pain in right hip (04/21/22) Pain in left hip (04/21/22) Trochanteric bursitis, right hip (04/21/22) Trochanteric bursitis, left hip (04/21/22) Visit Care Team Role Provider Type Yris Zaman MD Attending Provider Physician Family Provider Primary Care Provider Referring Provider Specialty: Family Practice Address: [address] [place] [address], [facility] Email: [email or web address] Plan Of Care PT-OP-T Assessment and Plan Start: 02/11/22 15:21 Freq: Status: Active Protocol: Document 04/21/22 12:00 DCW (Rec: 04/21/22 12:46 DCW [id number]) Physical Therapy Assessment Goals Two Impairment Pt experiences increased pain immediately upon starting gait [place] Aide Goal (LTG) Pt to report ability to ambulate for 15 minutes without increased pain in order to allow her to increase activity tolerance 03/24/22: progressing: Pt states walked on TM 1.2mph with little incline yesterday for 20 min and no hip pain but B hip pain with gait today. LTG Duration 05/12/22 progressing One Impairment Pt does not have an appropriate home exercise program Short Term Goal (STG) Pt to be independent and compliant with an appropriate HEP STG Duration 05/12/22 - improving Assessment Summary Assessment Pt doing well overall, significantly less pain in hips, still limited with gait due to low back pain, pt would continue to benefit from skilled therapy working now on improving low back mobility and core strength, along with setting up additional independent HEP. Physical Therapy Plan Frequency and Duration Frequency of Treatment 1-2x/week Duration of Treatment Three weeks Plan of Care Start Date 04/21/22 Plan of Care End Date 05/12/22 Therapeutic Interventions Therapeutic Interventions Home Exercise Program,Manual Therapy,Neuromuscular Re- education,Patient/Caregiver Education,Self-Care/Home Management,Soft Tissue Mobilization,Taping, Therapeutic Activities, Therapeutic Exercises Modalities Cold Pack/Ice Massage,Electric Stimulation,Hot Packs, Iontophoresis,Ultrasound Other Therapeutic Interventions Iontophoresis with Dexamethasone: 4 mg/mL Next Visit Focus/Plan Next Note Type Treatment Note Next Visit Plan Pt suggested trial manual beginning/ pre activity in future and see if decreases LB with activities. POC: Continue shuttle rec, sport cord and STS for strengthening. Progress gait and balance activities next tx. POC: Stretching/flexibility, STM, hip strengthening Plan of Care Dates Plan of Care Start Date 04/21/22 Plan of Care End Date 05/12/22 Electronically Signed by: Walter Polanco, PT 04/21/22 2241 If you are in agreement with this Plan of Care, please return a signed and dated copy. I have reviewed this Plan of Care and certify that the skilled therapy services above are required to meet the patient?s needs. Physician Signature Date Printed Name and Credentials Clinical Instructor Signature Printed Name and Credentials
--- NOTE | 2022-04-23 16:06 | PT.OTN ---
Current Diagnoses Pain in right hip (04/23/22) Pain in left hip (04/23/22) Trochanteric bursitis, right hip (04/23/22) Trochanteric bursitis, left hip (04/23/22) Physical Therapy Treatment Note PT-OP-A Visit Information Start: 02/11/22 15:21 Freq: Status: Active Protocol: Document 04/23/22 15:16 DCW (Rec: 04/23/22 16:06 DCW [id number]) Out-Patient Physical Therapy Visit Information Visit Information Visit Type Treatment Note Visit Start Time 15:16 Visit Stop Time 16:00 Total Visit Minutes 44 Visit Number 13 Number of CLUTCH OPERATOR Visits 0 Evaluation Information Evaluation Date 02/11/22 Precautions Precautions O2: 2L PT-OP-B Current Condition Start: 02/11/22 15:21 Freq: Status: Active Protocol: Document 02/11/22 13:45 DCW (Rec: 02/11/22 15:40 DCW [id number]) Current Condition History of Current Condition Onset Date A couple years Current Complaints Lateral hip pain History of Current Condition Pt is an 86 year old female presenting with a multi-year history of bilateral lateral hip pain. Pt notes pain is very point specific directly inferior to her GT bilaterally . Notes increased pain with any walking, pain occurs immediately upon starting to walk. Reports she typically uses a 4WW for community ambulation, which does not prevent hip pain. Pt has not yet found anything that helps pain. Additionally, pt uses supplemental O2, but only at night, or when coming into her Dr appointments when she knows she'll need to be wearing a mask. Pt has difficulty breathing when supine, needs to either lie on her side or propped up. Pt also notes right anterior thigh numbness when standing longer than five minutes. Prior Treatments and Tests Pt previously treated at this facility in 2019 for low back and posterior hip pain. Treatment Goals Patient/Caregiver Goals Eliminate hip pain with walking PT-OP-C Subjective Start: 02/11/22 15:21 Freq: Status: Active Protocol: Document 04/23/22 15:16 DCW (Rec: 04/23/22 16:06 DCW [id number]) OP-PT Subjective Patient Comments Patient Comments After last time, the next morning I was able to stand and do chores without leaning on anything for support, it felt pretty good. PT-OP-F Manual Assessment Start: 02/11/22 15:21 Freq: Status: Active Protocol: Document 04/21/22 12:00 DCW (Rec: 04/21/22 12:08 DCW [id number]) Manual Assessments Soft Tissue Assessment Soft Tissue Mobility Assessment Mild bilateral point-specific pain with palpation immediately next to greater trochanter bilaterally, no tenderness at any other points at this time. PT-OP-K Range of Motion Start: 02/11/22 15:21 Freq: Status: Active Protocol: Document 02/11/22 13:45 DCW (Rec: 02/11/22 15:40 DCW [id number]) Hip Goniometric Range of Motion Hip Right Active Hip ROM WFL Yes Testing Position Sitting Comments WNL, no notable pain Left Active Hip ROM WFL Yes Testing Position Sitting Comments WNL, no notable pain PT-OP-L Special Tests Start: 02/11/22 15:21 Freq: Status: Active Protocol: Document 02/11/22 13:45 DCW (Rec: 02/11/22 15:40 DCW [id number]) Special Tests Hip Special Tests Maria Esther's Test Test Results Negative Straight Leg Raise Test Results Negative PHIL Test Results Negative PT-OP-M Strength Start: 02/11/22 15:21 Freq: Status: Active Protocol: Document 04/21/22 12:00 DCW (Rec: 04/21/22 12:08 DCW [id number]) Hip Strength Hip Manual Muscle Testing Right Flexion (L2) 4+ Good+ Abduction 4 Good Adduction 4+ Good+ External Rotation 4+ Good+ Internal Rotation 4+ Good+ Left Flexion (L2) 4+ Good+ Abduction 4 Good Adduction 4+ Good+ External Rotation 4+ Good+ Internal Rotation 4+ Good+ PT-OP-Q Treatments Start: 02/11/22 15:21 Freq: Status: Active Protocol: Document 04/23/22 15:16 DCW (Rec: 04/23/22 16:06 DCW [id number]) Cardio Equipment Recumbent Elliptical (Biodex) Duration (Minutes) 7 Resistance 4 Seat Position 9 Other LEs only Gym Equipment Shuttle Recovery Unilateral Squats Details black wedge, head rest for trunk support inclined Resistance 50# Shuttle Recovery Platform Stable Reps/Time x20 Bilateral Squats Details black wedge, head rest for trunk support inclined Resistance 100# Shuttle Recovery Platform Stable Reps/Time x25 Therapeutic Exercises Standing Exercises 2 Standing Exercise Name Hip extension Side bilateral Resistance Red Equipment Used rail Reps/Minutes x10 Comments states feels just muscle postlateral hip working-cued knee extended 1 Standing Exercise Name Hip abduction Side bilateral Resistance Red Reps/Minutes x10 Comments cued upright posture. Manual Therapy Treatment Soft Tissue Mobilization Paraspinals Body Location Paraspinals, QL, glute max, piriformis, glute med. Mobilization Type Cross-Friction,Myofascial Release Intensity/Depth Moderate Body Position Sidelying w/ wedge and pillow prop Comments Manual and discussion reviewed for self STM w/ ball on wall that pt does perform at home. ITB Body Location L>R ITB, glut med, piriformis Mobilization Type Strumming,Sustained Pressure, Trigger Point Release Intensity/Depth Moderate Body Position Sidelying w/ wedge and pillow prop PT-OP-R Modalities Start: 02/23/22 14:33 Freq: Status: Active Protocol: Document 03/24/22 12:16 SP (Rec: 03/24/22 13:08 SP [id number]) Ultrasound Therapy Treatment Left Lateral Hip Treatment Duration (minutes) 8 Patient Position Sidelying Coupling Medium Ultrasound Gel Applicator Size (cm2) 5 Frequency Setting (mHz) 1 Mode Setting Continuous Duty Cycle 100% Intensity Setting (w/cm2) 1.0 Comments 5' each side R and L hips PT-OP-T Assessment and Plan Start: 02/11/22 15:21 Freq: Status: Active Protocol: Document 04/23/22 15:16 DCW (Rec: 04/23/22 16:06 DCW [id number]) Physical Therapy Assessment Goals Two Impairment Pt experiences increased pain immediately upon starting gait Half-Way Goal (LTG) Pt to report ability to ambulate for 15 minutes without increased pain in order to allow her to increase activity tolerance 03/24/22: progressing: Pt states walked on TM 1.2mph with little incline yesterday for 20 min and no hip pain but B hip pain with gait today. LTG Duration 05/12/22 progressing One Impairment Pt does not have an appropriate home exercise program Short Term Goal (STG) Pt to be independent and compliant with an appropriate HEP STG Duration 05/12/22 - improving Assessment Summary Assessment Pt happy with current level of function, feeling like her time in therapy has been beneficial. Plan to decrease visits to 1x/week over the next two week, and then discharge. Physical Therapy Plan Frequency and Duration Frequency of Treatment 1-2x/week Duration of Treatment Three weeks Plan of Care Start Date 04/21/22 Plan of Care End Date 05/12/22 Therapeutic Interventions Therapeutic Interventions Home Exercise Program,Manual Therapy,Neuromuscular Re- education,Patient/Caregiver Education,Self-Care/Home Management,Soft Tissue Mobilization,Taping, Therapeutic Activities, Therapeutic Exercises Modalities Cold Pack/Ice Massage,Electric Stimulation,Hot Packs, Iontophoresis,Ultrasound Other Therapeutic Interventions Iontophoresis with Dexamethasone: 4 mg/mL Next Visit Focus/Plan Next Note Type Treatment Note Next Visit Plan POC: Continue shuttle rec, sport cord and STS for strengthening. Progress gait and balance activities next tx. POC: Stretching/flexibility, STM, hip strengthening
--- NOTE | 2022-04-27 07:30 | PT-OP ANOTE ---
Pt called >24 hrs 04/25 voicemail left had to cancel todays' appt, no details provided.
--- NOTE | 2022-04-30 14:30 | PT.OTN ---
Current Diagnoses Pain in right hip (04/30/22) Pain in left hip (04/30/22) Trochanteric bursitis, right hip (04/30/22) Trochanteric bursitis, left hip (04/30/22) Physical Therapy Treatment Note PT-OP-A Visit Information Start: 02/11/22 15:21 Freq: Status: Active Protocol: Document 04/30/22 13:47 DCW (Rec: 04/30/22 14:30 DCW [id number]) Out-Patient Physical Therapy Visit Information Visit Information Visit Type Treatment Note Visit Start Time 13:47 Visit Stop Time 14:30 Total Visit Minutes 43 Visit Number 14 Number of VICE CHANCELLOR Visits 0 Evaluation Information Evaluation Date 02/11/22 Precautions Precautions O2: 2L PT-OP-B Current Condition Start: 02/11/22 15:21 Freq: Status: Active Protocol: Document 02/11/22 13:45 DCW (Rec: 02/11/22 15:40 DCW [id number]) Current Condition History of Current Condition Onset Date A couple years Current Complaints Lateral hip pain History of Current Condition Pt is an 86 year old female presenting with a multi-year history of bilateral lateral hip pain. Pt notes pain is very point specific directly inferior to her GT bilaterally . Notes increased pain with any walking, pain occurs immediately upon starting to walk. Reports she typically uses a 4WW for community ambulation, which does not prevent hip pain. Pt has not yet found anything that helps pain. Additionally, pt uses supplemental O2, but only at night, or when coming into her Dr appointments when she knows she'll need to be wearing a mask. Pt has difficulty breathing when supine, needs to either lie on her side or propped up. Pt also notes right anterior thigh numbness when standing longer than five minutes. Prior Treatments and Tests Pt previously treated at this facility in 2019 for low back and posterior hip pain. Treatment Goals Patient/Caregiver Goals Eliminate hip pain with walking PT-OP-C Subjective Start: 02/11/22 15:21 Freq: Status: Active Protocol: Document 04/30/22 13:47 DCW (Rec: 04/30/22 14:30 DCW [id number]) OP-PT Subjective Patient Comments Patient Comments Pt notes she is much better. PT-OP-F Manual Assessment Start: 02/11/22 15:21 Freq: Status: Active Protocol: Document 04/21/22 12:00 DCW (Rec: 04/21/22 12:08 DCW [id number]) Manual Assessments Soft Tissue Assessment Soft Tissue Mobility Assessment Mild bilateral point-specific pain with palpation immediately next to greater trochanter bilaterally, no tenderness at any other points at this time. PT-OP-K Range of Motion Start: 02/11/22 15:21 Freq: Status: Active Protocol: Document 02/11/22 13:45 DCW (Rec: 02/11/22 15:40 DCW [id number]) Hip Goniometric Range of Motion Hip Right Active Hip ROM WFL Yes Testing Position Sitting Comments WNL, no notable pain Left Active Hip ROM WFL Yes Testing Position Sitting Comments WNL, no notable pain PT-OP-L Special Tests Start: 02/11/22 15:21 Freq: Status: Active Protocol: Document 02/11/22 13:45 DCW (Rec: 02/11/22 15:40 DCW [id number]) Special Tests Hip Special Tests Maria Esther's Test Test Results Negative Straight Leg Raise Test Results Negative PHIL Test Results Negative PT-OP-M Strength Start: 02/11/22 15:21 Freq: Status: Active Protocol: Document 04/21/22 12:00 DCW (Rec: 04/21/22 12:08 DCW [id number]) Hip Strength Hip Manual Muscle Testing Right Flexion (L2) 4+ Good+ Abduction 4 Good Adduction 4+ Good+ External Rotation 4+ Good+ Internal Rotation 4+ Good+ Left Flexion (L2) 4+ Good+ Abduction 4 Good Adduction 4+ Good+ External Rotation 4+ Good+ Internal Rotation 4+ Good+ PT-OP-Q Treatments Start: 02/11/22 15:21 Freq: Status: Active Protocol: Document 04/30/22 13:47 DCW (Rec: 04/30/22 14:30 DCW [id number]) Cardio Equipment Recumbent Elliptical (Biodex) Duration (Minutes) 6 Resistance 5 Seat Position 9 Therapeutic Exercises Standing Exercises 2 Standing Exercise Name Hip extension Side bilateral Resistance Red Equipment Used rail Reps/Minutes x10 Comments states feels just muscle postlateral hip working-cued knee extended 1 Standing Exercise Name Hip abduction Side bilateral Resistance Red Reps/Minutes x10 Comments cued upright posture. Other Exercises 1 Other Exercise Name Resisted side and forward/ backward-stepping Resistance Red Equipment Used rail, pt managed O2 tank Reps/Minutes 20 ft x2 laps Comments reports good lateral hip work out, pain Manual Therapy Treatment Soft Tissue Mobilization Paraspinals Body Location Paraspinals, QL, glute max, piriformis, glute med. Mobilization Type Cross-Friction,Myofascial Release Intensity/Depth Moderate Body Position Sidelying w/ wedge and pillow prop Comments Manual and discussion reviewed for self STM w/ ball on wall that pt does perform at home. ITB Body Location L>R ITB, glut med, piriformis Mobilization Type Strumming,Sustained Pressure, Trigger Point Release Intensity/Depth Moderate Body Position Sidelying w/ wedge and pillow prop PT-OP-R Modalities Start: 02/23/22 14:33 Freq: Status: Active Protocol: Document 03/24/22 12:16 SP (Rec: 03/24/22 13:08 SP [id number]) Ultrasound Therapy Treatment Left Lateral Hip Treatment Duration (minutes) 8 Patient Position Sidelying Coupling Medium Ultrasound Gel Applicator Size (cm2) 5 Frequency Setting (mHz) 1 Mode Setting Continuous Duty Cycle 100% Intensity Setting (w/cm2) 1.0 Comments 5' each side R and L hips PT-OP-T Assessment and Plan Start: 02/11/22 15:21 Freq: Status: Active Protocol: Document 04/30/22 13:47 DCW (Rec: 04/30/22 14:30 DCW [id number]) Physical Therapy Assessment Goals Two Impairment Pt experiences increased pain immediately upon starting gait Custodial Goal (LTG) Pt to report ability to ambulate for 15 minutes without increased pain in order to allow her to increase activity tolerance 03/24/22: progressing: Pt states walked on TM 1.2mph with little incline yesterday for 20 min and no hip pain but B hip pain with gait today. LTG Duration 05/12/22 progressing One Impairment Pt does not have an appropriate home exercise program Short Term Goal (STG) Pt to be independent and compliant with an appropriate HEP STG Duration 05/12/22 - improving Assessment Summary Assessment Pt feeling better today, still some slight soreness in her low back, but prepared for discharge following her appointment next week. Physical Therapy Plan Frequency and Duration Frequency of Treatment 1-2x/week Duration of Treatment Three weeks Plan of Care Start Date 04/21/22 Plan of Care End Date 05/12/22 Therapeutic Interventions Therapeutic Interventions Home Exercise Program,Manual Therapy,Neuromuscular Re- education,Patient/Caregiver Education,Self-Care/Home Management,Soft Tissue Mobilization,Taping, Therapeutic Activities, Therapeutic Exercises Modalities Cold Pack/Ice Massage,Electric Stimulation,Hot Packs, Iontophoresis,Ultrasound Other Therapeutic Interventions Iontophoresis with Dexamethasone: 4 mg/mL Next Visit Focus/Plan Next Note Type Discharge Summary Next Visit Plan POC: Continue shuttle rec, sport cord and STS for strengthening. Progress gait and balance activities next tx. POC: Stretching/flexibility, STM, hip strengthening
--- NOTE | 2022-05-07 16:01 | PT.OTN ---
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 Pt notes pain is very point specific directly inferior to her GT bilaterally . Notes increased pain with any walking, pain occurs immediately upon starting to walk. Reports she typically uses a 4WW for community ambulation, which does not prevent hip pain. Pt has not yet found anything that helps pain. Additionally, pt uses supplemental O2, but only at night, or when coming into her Dr appointments when she knows she'll need to be wearing a mask. Pt has difficulty breathing when supine, needs to either lie on her side or propped up. Pt also notes right anterior thigh numbness when standing longer than five minutes. Prior Treatments and Tests Pt previously treated at this facility in 2019 for low back and posterior hip pain. Treatment Goals Patient/Caregiver Goals Eliminate hip pain with walking PT-OP-C Subjective Start: 02/11/22 15:21 Freq: Status: Active Protocol: Document 05/07/22 15:15 DCW (Rec: 05/07/22 16:01 DCW [id number]) OP-PT Subjective Patient Comments Patient Comments Pt reports she is feeling great today. PT-OP-F Manual Assessment Start: 02/11/22 15:21 Freq: Status: Active Protocol: Document 04/21/22 12:00 DCW (Rec: 04/21/22 12:08 DCW [id number]) Manual Assessments Soft Tissue Assessment Soft Tissue Mobility Assessment Mild bilateral point-specific pain with palpation immediately next to greater trochanter bilaterally, no tenderness at any other points at this time. PT-OP-K Range of Motion Start: 02/11/22 15:21 Freq: Status: Active Protocol: Document 02/11/22 13:45 DCW (Rec: 02/11/22 15:40 DCW [id number]) Hip Goniometric Range of Motion Hip Right Active Hip ROM WFL Yes Testing Position Sitting Comments WNL, no notable pain Left Active Hip ROM WFL Yes Testing Position Sitting Comments WNL, no notable pain PT-OP-L Special Tests Start: 02/11/22 15:21 Freq: Status: Active Protocol: Document 02/11/22 13:45 DCW (Rec: 02/11/22 15:40 DCW [id number]) Special Tests Hip Special Tests Maria Esther's Test Test Results Negative Straight Leg Raise Test Results Negative PHIL Test Results Negative PT-OP-M Strength Start: 02/11/22 15:21 Freq: Status: Active Protocol: Document 04/21/22 12:00 DCW (Rec: 04/21/22 12:08 DCW [id number]) Hip Strength Hip Manual Muscle Testing Right Flexion (L2) 4+ Good+ Abduction 4 Good Adduction 4+ Good+ External Rotation 4+ Good+ Internal Rotation 4+ Good+ Left Flexion (L2) 4+ Good+ Abduction 4 Good Adduction 4+ Good+ External Rotation 4+ Good+ Internal Rotation 4+ Good+ PT-OP-Q Treatments Start: 02/11/22 15:21 Freq: Status: Active Protocol: Document 05/07/22 15:15 DCW (Rec: 05/07/22 16:01 DCW [id number]) Cardio Equipment Recumbent Elliptical (Biodex) Duration (Minutes) 6 Resistance 5 Seat Position 9 Gym Equipment Shuttle Recovery Unilateral Squats Details black wedge, head rest for trunk support inclined Resistance 50# Shuttle Recovery Platform Stable Reps/Time x20 Bilateral Squats Details black wedge, head rest for trunk support inclined Resistance 100# Shuttle Recovery Platform Stable Reps/Time x25 Therapeutic Exercises Standing Exercises 2 Standing Exercise Name Hip extension Side bilateral Resistance Red Equipment Used rail Reps/Minutes x10 Comments states feels just muscle postlateral hip working-cued knee extended 1 Standing Exercise Name Hip abduction Side bilateral Resistance Red Reps/Minutes x10 Comments cued upright posture. Manual Therapy Treatment Soft Tissue Mobilization Paraspinals Body Location Paraspinals, QL, glute max, Mobilization Type Cross-Friction,Myofascial Release Intensity/Depth Moderate Body Position Sidelying w/ wedge and pillow prop Comments Manual and discussion reviewed for self STM w/ ball on wall that pt does perform at home. ITB Body Location L>R ITB, glut med, piriformis Mobilization Type Strumming,Sustained Pressure, Trigger Point Release Intensity/Depth Moderate Body Position Sidelying w/ wedge and pillow prop PT-OP-R Modalities Start: 02/23/22 14:33 Freq: Status: Active Protocol: Document 03/24/22 12:16 SP (Rec: 03/24/22 13:08 SP [id number]) Ultrasound Therapy Treatment Left Lateral Hip Treatment Duration (minutes) 8 Patient Position Sidelying Coupling Medium Ultrasound Gel Applicator Size (cm2) 5 Frequency Setting (mHz) 1 Mode Setting Continuous Duty Cycle 100% Intensity Setting (w/cm2) 1.0 Comments 5' each side R and L hips PT-OP-T Assessment and Plan Start: 02/11/22 15:21 Freq: Status: Active Protocol: Document 05/07/22 15:15 DCW (Rec: 05/07/22 16:01 DCW [id number]) Physical Therapy Assessment Goals Two Impairment Pt experiences increased pain immediately upon starting gait Snf Goal (LTG) Pt to report ability to ambulate for 15 minutes without increased pain in order to allow her to increase activity tolerance 03/24/22: progressing: Pt states walked on TM 1.2mph with little incline yesterday for 20 min and no hip pain but B hip pain with gait today. LTG Duration 05/12/22 progressing One Impairment Pt does not have an appropriate home exercise program Short Term Goal (STG) Pt to be independent and compliant with an appropriate HEP STG Duration 05/12/22 - improving Progress Towards Goals Progress Towards Goals Goals Met Assessment Summary Assessment Pt has met all goals, feeling much better overall, reports no further complaints. Pt appropriate for discharge at this time. Physical Therapy Plan Frequency and Duration Frequency of Treatment 1-2x/week Duration of Treatment Three weeks Plan of Care Start Date 04/21/22 Plan of Care End Date 05/12/22 Therapeutic Interventions Therapeutic Interventions Home Exercise Program,Manual Therapy,Neuromuscular Re- education,Patient/Caregiver Education,Self-Care/Home Management,Soft Tissue Mobilization,Taping, Therapeutic Activities, Therapeutic Exercises Modalities Cold Pack/Ice Massage,Electric Stimulation,Hot Packs, Iontophoresis,Ultrasound Other Therapeutic Interventions Iontophoresis with Dexamethasone: 4 mg/mL Discharge Physical Therapy Discharge Reasons Goals Met Next Visit Focus/Plan Next Note Type Discharge Summary
== END 2022-05-11 13:17 ==
LOC: PHYS 15:15
PROVIDERS: Family Provider Family Medicine; PCP Family Medicine; Referring Provider Family Medicine; Visit Provider Family Medicine
DX: M25.551 Pain in right hip (principal); M25.552 Pain in left hip; M70.62 Trochanteric bursitis, left hip; M70.61 Trochanteric bursitis, right hip
CPT/HCPCS: 97035; 97110; 97112; 97140; 97161

== ENCOUNTER → 2022-05-13 08:00 | Outpatient (CLI) | payer OTHER, SELFPAY ==
[2020-06-03 00:47] VITALS: BMI 31.6
[2022-05-13 08:46] LABS: Add Manual Diff / Slide Review NO; Basophils Absolute Auto 100 /uL (0-100); Basophils Percent Auto 0.7 % (0-2); Eosinophils Absolute Auto 200 /uL (0-450); Eosinophils Percent Auto 3.1 % (2-4); Hematocrit 36.9 % (36-46); Hemoglobin 12.2 g/dL (12.0-16.0); Lymphocytes Absolute Auto 2200 /uL (1100-4500); Lymphocytes Percent Auto 28.6 % (25-40); Mean Corpuscular HGB Conc 33.1 % (30-36); Mean Corpuscular Hemoglobin 28.4 PG (26-34); Mean Corpuscular Volume 85.6 fL (80-100); Monocytes Absolute Auto 800 /uL (0-900); Monocytes Percent Auto 11.1 % (3-14); Neutrophils Absolute Auto 4300 /uL (1500-7000); Neutrophils Percent Auto 56.5 % (50-75); Platelet Count 260 X10^3/uL (150-400); Red Blood Cell Count 4.31 X10^6/uL (4.0-5.2); Red Cell Distribution Width 14.3 % (11.6-14.8); White Blood Cell Count 7.5 X10^3/uL (4.5-11.0)
[2022-05-13 09:33] LABS: Blood Urea Nitrogen 20 mg/dL (7-17); Calcium 9.4 mg/dL (8.4-10.2); Carbon Dioxide 28 mmol/L (22-32); Chloride 102 mmol/L (98-107); Cholesterol 165 mg/dL (140-199); Estimated Glomerular Filt Rate > 60 mL/min (>60); Glucose 97 mg/dL (80-110); HDL Cholesterol 57 mg/dL (40-60); HEMOLYSIS < 15 (0-50); LDL Cholesterol Calculated 87 mg/dL (<100); Potassium 4.3 mmol/L (3.4-5.1); Sodium 137 mmol/L (137-145); Triglycerides 106 mg/dL (35-150)
== END ==
PROVIDERS: Family Provider Family Medicine; PCP Family Medicine; Referring Provider Internal Medicine Cardiovascular Disease; Visit Provider Internal Medicine Cardiovascular Disease
DX: I10 Essential (primary) hypertension (principal); Z79.01 Long term (current) use of anticoagulants; E78.5 Hyperlipidemia, unspecified
CPT/HCPCS: 36415; 80048; 80061; 85025

== ENCOUNTER → 2022-10-20 08:21 | Outpatient (CLI) | payer OTHER, SELFPAY ==
[2020-06-03 00:47] VITALS: BMI 31.6
[2022-10-20 09:42] LABS: TSH w/ Reflex to FT4 3.67 uIU/mL (0.47-4.68)
== END ==
PROVIDERS: Family Provider Family Medicine; PCP Family Medicine; Referring Provider Family Medicine; Visit Provider Family Medicine
DX: E03.9 Hypothyroidism, unspecified (principal)
CPT/HCPCS: 36415; 84443

== ENCOUNTER → 2022-11-26 14:04 | Outpatient (CLI) | payer OTHER, SELFPAY ==
[2020-06-03 00:47] VITALS: BMI 31.6
--- NOTE | 2022-11-26 14:06 | DI.MG.S_ITS ---
BILATERAL DIGITAL SCREENING MAMMOGRAM 3D/2D WITH CAD: 11/26/2022 CLINICAL: Routine screening. Family history of breast cancer. Comparison is made to exams dated: 11/25/2021 mammogram, 10/17/2020 mammogram, and 09/08/2019 mammogram - [facility]. Both breasts are heterogeneously dense, which may obscure small masses (category c / 51-75% glandular tissue). Current study was also evaluated with a Computer Aided Detection (CAD) system. There are benign vascular calcifications in both breasts. No significant masses, calcifications, or other findings are seen in either breast. There has been no significant interval change. IMPRESSION: BENIGN There is no mammographic evidence of malignancy. A 1 year screening mammogram is recommended. This exam was interpreted at Station ID: [id number]. NOTE: For mammograms, a report in lay terms will be sent to the patient. Approximately 15% of breast malignancies will not be visualized mammographically. In the management of a palpable breast mass, a negative mammogram must not discourage biopsy of a clinically suspicious lesion. Electronically Signed By: Ely sprague/chas:11/26/2022 17:44:47 letter sent: Normal Exam ACR BI-RADS Category 2: Benign Finding(s) 3342F
== END ==
PROVIDERS: Family Provider Family Medicine; PCP Family Medicine; Referring Provider Family Medicine; Visit Provider Family Medicine
DX: Z12.31 Encounter for screening mammogram for malignant neoplasm of breast (principal); Z80.3 Family history of malignant neoplasm of breast
CPT/HCPCS: 77063; 77067

== ENCOUNTER → 2022-12-30 14:31 | Outpatient (CLI) | payer OTHER, SELFPAY ==
[2022-12-28 16:36] VITALS: BMI 31.6
[2023-01-01 12:43] LABS: Candida species Negative (Negative); Gardnerella vaginalis Negative (Negative); Trichomoas vaginalis Negative (Negative)
== END ==
PROVIDERS: Family Provider Family Medicine; PCP Family Medicine; Visit Provider Obstetrics & Gynecology
DX: N89.8 Other specified noninflammatory disorders of vagina (principal)
CPT/HCPCS: 87480; 87510; 87660

== ENCOUNTER → 2023-01-10 07:32 | Outpatient (CLI) | payer OTHER, SELFPAY ==
[2022-12-28 16:36] VITALS: BMI 31.6
[2023-01-10 09:03] LABS: Add Manual Diff / Slide Review NO; Basophils Absolute Auto 0 /uL (0-100); Basophils Percent Auto 0.4 % (0-2); Eosinophils Absolute Auto 300 /uL (0-450); Eosinophils Percent Auto 3.5 % (2-4); Hematocrit 37.2 % (36-46); Lymphocytes Absolute Auto 2200 /uL (1100-4500); Lymphocytes Percent Auto 29.7 % (25-40); Mean Corpuscular HGB Conc 34.9 % (30-36); Mean Corpuscular Hemoglobin 29.4 PG (26-34); Mean Corpuscular Volume 84.3 fL (80-100); Monocytes Absolute Auto 800 /uL (0-900); Monocytes Percent Auto 10.4 % (3-14); Neutrophils Absolute Auto 4200 /uL (1500-7000); Platelet Count 256 X10^3/uL (150-400); Red Blood Cell Count 4.42 X10^6/uL (4.0-5.2); Red Cell Distribution Width 14.8 % (11.6-14.8); White Blood Cell Count 7.5 X10^3/uL (4.5-11.0)
[2023-01-10 09:12] LABS: BUN Creatinine Ratio 27.5 (6-22); Blood Urea Nitrogen 25 mg/dL (7-17); Calcium 9.5 mg/dL (8.4-10.2); Carbon Dioxide 26 mmol/L (22-32); Chloride 100 mmol/L (98-107); Estimated Glomerular Filt Rate > 60 mL/min (>60); Glucose 100 mg/dL (80-110); HEMOLYSIS < 15 (0-50); Potassium 3.9 mmol/L (3.4-5.1); Sodium 137 mmol/L (137-145)
== END ==
PROVIDERS: Family Provider Family Medicine; PCP Family Medicine; Referring Provider Internal Medicine Cardiovascular Disease; Visit Provider Internal Medicine Cardiovascular Disease
DX: I10 Essential (primary) hypertension (principal)
CPT/HCPCS: 36415; 80048; 85025

== ENCOUNTER → 2023-01-17 15:51 | Outpatient (CLI) | payer OTHER, SELFPAY ==
[2022-12-28 16:36] VITALS: BMI 31.6
--- NOTE | 2023-01-17 15:51 | DI.US.S_ITS ---
PROCEDURE: US PELVIC COMPLETE INDICATIONS: POST MENOPAUSAL SPOTTING TECHNIQUE: Real-time scanning was performed of the pelvic organs, with image documentation. Additional endovaginal scanning was necessary due to incomplete visualization of the adnexal and endometrial structures by transabdominal scanning. COMPARISON: None. FINDINGS: Uterus: Uterus is anteverted and normal in size at 4.8 x 2.5 x 2.8 cm. The myometrium is homogeneous. The endometrium measures 2.3 mm combined thickness. Ovaries: Neither ovary visualized Other: No pathologic free abdominal or pelvic fluid. IMPRESSION: Unremarkable ultrasound the uterus. Normal endometrial thickness. Nonvisualized ovaries. Free fluid or adnexal mass. Approved by: Jonathan Ramirez M.D. on 01/17/2023 at 18:11
== END ==
PROVIDERS: Family Provider Family Medicine; PCP Family Medicine; Referring Provider Obstetrics & Gynecology; Visit Provider Obstetrics & Gynecology
DX: N95.0 Postmenopausal bleeding (principal)
CPT/HCPCS: 76830; 76856

== ENCOUNTER → 2023-05-24 08:07 | Outpatient (CLI) | payer OTHER, SELFPAY ==
[2022-12-28 16:36] VITALS: BMI 31.6
--- NOTE | 2023-05-24 08:30 | DI.ECHO.S_ITS ---
[facility]---------+ [facility] +---------+ : : [address] : : : : [id number] : : : : Phone: [phone]---------+ Echocardiogram Report + + :Name: JUAN MANUEL RIZO Study Date: 05/24/2023 Height: 64 in : :[facility] ReadingLocation: Weight: 177 lb : : Gender: Female BSA: 1.9 m2 : :: 1935 Age: 87 yrs BP: 143/75 mmHg: :Reason For Study: HEART FAILURE : :Ordering Physician: CHANDRAKANT, : :ISSA LOMAX Performed By: Arina Burks : :Referring: ISSA STALLINGS MD : + + Interpretation Summary 1) Normal left ventricular thickness, size, and systolic function (EF 60-65%). 2) Apical wall motion abnormality may reflect pacemaker activation. 3) Upper normal right ventricular size with normal function. Pacemaker lead visualized in the right ventricle. 4) No significant valvular abnormalities. 5) The right ventricular systolic pressure is estimated to be at least 37 mmHg based on an estimated right atrial pressure of 3 mm Hg. 6) Compared to the Echo done 04/29/2020, no significant change. Procedure: A two-dimensional transthoracic echocardiogram with color flow and Doppler was performed. The study quality was technically adequate. Comparison is made with the echocardiogram of 04/29/2020. The patient was in sinus rhythm with heart rates between 69-80 bpm during the exam. Left Ventricle: The left ventricle is normal in size and wall thickness. The ejection fraction is estimated to be 60-65%. Apical wall motion abnormality may reflect pacemaker activation. Right Ventricle: The right ventricle is at the upper limits of normal in size. There is a pacemaker lead in the right ventricle. The right ventricular systolic function is normal. Atria: The left atrial size is normal. Right atrial size is normal. There is a catheter/pacemaker lead seen in the right atrium. There is no Doppler evidence for an interatrial shunt. Mitral Valve: The mitral valve leaflets appear mildly thickened, but open well. There is mild to moderate mitral annular calcification. There is trace mitral regurgitation. Aortic Valve: The aortic valve is trileaflet. The aortic valve opens well. There is no aortic valve stenosis. No aortic regurgitation is present. Tricuspid Valve: The tricuspid valve is normal in structure and function. There is mild tricuspid regurgitation. The right ventricular systolic pressure is estimated to be at least 37 mmHg based on an estimated right atrial pressure of 3 mm Hg. Pulmonic Valve: The pulmonic valve leaflets are thin and pliable; valve motion is normal. There is mild pulmonic regurgitation. Great Vessels: The aortic root is normal size. The dimensions of the ascending aorta are normal. The IVC is of normal diameter and collapses greater than 50% with a sniff. This suggests a low right atrial pressure of 3 mm Hg. Pericardium/ Pleura There is no pericardial effusion. There is no pleural effusion. MMode/2D Measurements & Calculations LVIDd: 4.4 cm LVOT diam: 2.1 cm LVIDs: 2.8 cm Ao root diam: 3.2 cm FS: 37.0 % asc Aorta Diam: 3.1 cm IVSd: 0.94 cm Ao Arch Diam (Prox Trans): 2.3 cm LVPWd: 0.92 cm LV pascual. diameter/BSA (cm/m^2): 2.4 LV sys. diameter/BSA (cm/m^2): 1.5 LA A2 area: 18.5 cm2 RA long axis: 4.3 cm LA A4 area: 13.1 cm2 RA area: 11.8 cm2 LA length (vol): 4.6 cm RA vol: 27.7 ml LA vol: 44.7 ml RA : 14.9 ml/m2 LA vol index: 24.1 ml/m2 IVC diam: 1.4 cm RVD1 (basal): 4.1 cm RVD2 (mid): 2.9 cm TAPSE: 2.3 cm Doppler Measurements & Calculations Ao V2 max: 130.2 cm/sec LVOT Max Nam: 114.0 cm/sec Ao V2 mean: 96.9 cm/sec LV V1 max P.2 mmHg Ao max P.8 mmHg LV V1 VTI: 25.2 cm Ao mean P.0 mmHg BETTE(I,D): 2.9 cm2 Ao V2 VTI: 28.8 cm BETTE(V,D): 2.9 cm2 sev ratio: 0.88 BETTE indexed to BSA (cm^2/m^2): 1.6 MV E max nam: 73.1 cm/sec TR max nam: 288.9 cm/sec MV A max nam: 109.8 cm/sec TR max P.4 mmHg MV E/A: 0.67 PA V2 max: 113.4 cm/sec Med Peak E' Nam: 6.3 cm/sec PA V2 mean: 74.9 cm/sec E/E' med: 11.6 PA mean P.6 mmHg Lat Peak E' Nam: 7.6 cm/sec PA pr(Accel): 46.5 mmHg E/E' lat: 9.6 E/e' average: 10.6 MV dec time: 0.24 sec SV(LVOT): 84.6 ml Reading Physician:01:07 PM
== END ==
PROVIDERS: Family Provider Family Medicine; PCP Family Medicine; Referring Provider Family Medicine; Visit Provider Family Medicine
DX: I08.1 Rheumatic disorders of both mitral and tricuspid valves (principal); I50.9 Heart failure, unspecified
CPT/HCPCS: 93306

== ENCOUNTER → 2023-07-21 08:15 | Outpatient (CLI) | payer OTHER, SELFPAY ==
[2023-06-16 11:11] VITALS: BMI 31.6
[2023-07-21 09:03] LABS: Add Manual Diff / Slide Review NO; Basophils Absolute Auto 100 /uL (0-100); Basophils Percent Auto 0.7 % (0-2); Eosinophils Absolute Auto 300 /uL (0-450); Eosinophils Percent Auto 3.5 % (2-4); Hematocrit 37.9 % (36-46); Hemoglobin 13.1 g/dL (12.0-16.0); Lymphocytes Absolute Auto 2100 /uL (1100-4500); Mean Corpuscular HGB Conc 34.5 % (30-36); Mean Corpuscular Hemoglobin 29.1 PG (26-34); Mean Corpuscular Volume 84.4 fL (80-100); Monocytes Absolute Auto 800 /uL (0-900); Monocytes Percent Auto 8.8 % (3-14); Neutrophils Absolute Auto 5600 /uL (1500-7000); Platelet Count 242 X10^3/uL (150-400); Red Blood Cell Count 4.49 X10^6/uL (4.0-5.2); Red Cell Distribution Width 14.4 % (11.6-14.8); White Blood Cell Count 8.9 X10^3/uL (4.5-11.0)
[2023-07-21 09:54] LABS: BUN Creatinine Ratio 23.2 (6-22); Blood Urea Nitrogen 19 mg/dL (7-17); Calcium 9.8 mg/dL (8.4-10.2); Carbon Dioxide 25 mmol/L (22-32); Chloride 102 mmol/L (98-107); Cholesterol 171 mg/dL (140-199); Estimated Glomerular Filt Rate > 60 mL/min (>60); Glucose 104 mg/dL (80-110); HDL Cholesterol 67 mg/dL (40-60); HEMOLYSIS 19 (0-50); LDL Cholesterol Calculated 87 mg/dL (<100); Potassium 4.1 mmol/L (3.4-5.1); Sodium 138 mmol/L (137-145); Triglycerides 87 mg/dL (35-150)
== END ==
PROVIDERS: Family Provider Family Medicine; PCP Family Medicine; Referring Provider Internal Medicine Cardiovascular Disease; Visit Provider Internal Medicine Cardiovascular Disease
DX: I10 Essential (primary) hypertension (principal); Z79.01 Long term (current) use of anticoagulants
CPT/HCPCS: 36415; 80048; 80061; 85025

== ENCOUNTER → 2024-01-10 14:26 | Outpatient (CLI) | payer OTHER, SELFPAY ==
[2023-06-16 11:11] VITALS: BMI 31.6
--- NOTE | 2024-01-10 14:28 | DI.MG.S_ITS ---
BILATERAL DIGITAL SCREENING MAMMOGRAM 3D/2D WITH CAD: 01/10/2024 CLINICAL: Routine screening. Family history breast cancer. Comparison is made to exams dated: 11/26/2022 mammogram, 11/25/2021 mammogram, and 10/17/2020 mammogram - [facility]. Both breasts are heterogeneously dense, which may obscure small masses (category c / 51-75% glandular tissue). Current study was also evaluated with a Computer Aided Detection (CAD) system. There are benign vascular calcifications in both breasts. No significant masses, calcifications, or other findings are seen in either breast. There has been no significant interval change. IMPRESSION: BENIGN There is no mammographic evidence of malignancy. A 1 year screening mammogram is recommended. This exam was interpreted at Station ID: [id number]. NOTE: For mammograms, a report in lay terms will be sent to the patient. Approximately 15% of breast malignancies will not be visualized mammographically. In the management of a palpable breast mass, a negative mammogram must not discourage biopsy of a clinically suspicious lesion. Electronically Signed By: Rajat figueroa/chas:01/10/2024 15:29:26 letter sent: Normal Exam ACR BI-RADS Category 2: Benign Finding(s) 3342F
== END ==
PROVIDERS: Family Provider Family Medicine; PCP Family Medicine; Referring Provider Family Medicine; Visit Provider Family Medicine
DX: Z12.31 Encounter for screening mammogram for malignant neoplasm of breast (principal); Z80.3 Family history of malignant neoplasm of breast; R92.333 Mammographic heterogeneous density, bilateral breasts
CPT/HCPCS: 77063; 77067

== ENCOUNTER → 2024-02-20 09:04 | Outpatient (CLI) | payer OTHER, SELFPAY ==
[2023-06-16 11:11] VITALS: BMI 31.6
[2024-02-20 10:32] LABS: Add Manual Diff / Slide Review NO; Basophils Absolute Auto 0 /uL (0-100); Basophils Percent Auto 0.4 % (0-2); Eosinophils Absolute Auto 300 /uL (0-450); Eosinophils Percent Auto 4.2 % (2-4); Hematocrit 38.2 % (36-46); Hemoglobin 12.8 g/dL (12.0-16.0); Lymphocytes Absolute Auto 1800 /uL (1100-4500); Lymphocytes Percent Auto 24.1 % (25-40); Mean Corpuscular HGB Conc 33.5 % (30-36); Mean Corpuscular Hemoglobin 29.1 PG (26-34); Mean Corpuscular Volume 86.7 fL (80-100); Monocytes Absolute Auto 600 /uL (0-900); Monocytes Percent Auto 8.5 % (3-14); Neutrophils Absolute Auto 4800 /uL (1500-7000); Neutrophils Percent Auto 62.8 % (50-75); Platelet Count 261 X10^3/uL (150-400); Red Blood Cell Count 4.41 X10^6/uL (4.0-5.2); Red Cell Distribution Width 14.4 % (11.6-14.8); White Blood Cell Count 7.6 X10^3/uL (4.5-11.0)
[2024-02-20 10:56] LABS: BUN Creatinine Ratio 19.4 (6-22); Blood Urea Nitrogen 18 mg/dL (7-17); Calcium 9.2 mg/dL (8.4-10.2); Carbon Dioxide 28 mmol/L (22-32); Chloride 104 mmol/L (98-107); Estimated Glomerular Filt Rate 60 mL/min (>60); Glucose 104 mg/dL (80-110); HEMOLYSIS < 15 (0-50); Potassium 3.8 mmol/L (3.4-5.1); Sodium 139 mmol/L (137-145)
== END ==
LOC: LAB 09:05
PROVIDERS: Family Provider Family Medicine; PCP Family Medicine; Referring Provider Internal Medicine Cardiovascular Disease; Visit Provider Internal Medicine Cardiovascular Disease
DX: I50.32 Chronic diastolic (congestive) heart failure (principal); Z79.01 Long term (current) use of anticoagulants
CPT/HCPCS: 36415; 80048; 85025

== ENCOUNTER → 2024-08-22 07:09 | Outpatient (CLI) | payer OTHER, SELFPAY ==
[2024-04-30 14:54] VITALS: BMI 31.6
[2024-08-22 07:57] LABS: Hematocrit 36.8 % (36-46); Hemoglobin 12.6 g/dL (12.0-16.0); Mean Corpuscular HGB Conc 34.3 % (30-36); Mean Corpuscular Hemoglobin 29.4 PG (26-34); Mean Corpuscular Volume 85.7 fL (80-100); Platelet Count 234 X10^3/uL (150-400); Red Blood Cell Count 4.29 X10^6/uL (4.0-5.2); White Blood Cell Count 7.3 X10^3/uL (4.5-11.0)
[2024-08-22 10:10] LABS: Blood Urea Nitrogen 27 mg/dL (7-17); Calcium 9.6 mg/dL (8.4-10.2); Carbon Dioxide 25 mmol/L (22-32); Chloride 105 mmol/L (98-107); Cholesterol 165 mg/dL (140-199); Estimated Glomerular Filt Rate 60 mL/min (>60); Glucose 101 mg/dL (80-110); HDL Cholesterol 80 mg/dL (40-60); HEMOLYSIS 28 (0-50); Potassium 3.9 mmol/L (3.4-5.1); Sodium 135 mmol/L (137-145)
[2024-08-22 15:25] LABS: LDL Cholesterol Calculated 71 mg/dL (<100); Triglycerides 68 mg/dL (35-150)
== END ==
PROVIDERS: Family Provider Family Medicine; PCP Family Medicine; Referring Provider Internal Medicine Cardiovascular Disease; Visit Provider Internal Medicine Cardiovascular Disease
DX: E78.5 Hyperlipidemia, unspecified (principal); I50.32 Chronic diastolic (congestive) heart failure
CPT/HCPCS: 36415; 80048; 80061; 85027

== ENCOUNTER → 2024-10-10 14:45 | Outpatient (CLI) | payer OTHER, SELFPAY ==
[2024-04-30 14:54] VITALS: BMI 31.6
--- NOTE | 2024-10-10 14:46 | DI.RAD.S_ITS ---
PROCEDURE: XR KNEE RT 3V INDICATIONS: knee pain TECHNIQUE: 3 views of the knee were acquired. COMPARISON: [facility], , KNEE 3V RIGHT, 07/06/2017, 9:36. FINDINGS: Bones: No fractures or dislocations. No suspicious bony lesions. Soft tissues: No joint effusion. No suspicious soft tissue calcifications. IMPRESSION: Medial compartment joint space narrowing Lateral compartment chondrocalcinosis No change Approved by: Jonathan Ramirez M.D. on 10/11/2024 at 17:43
[2024-10-10 17:32] LABS: Thyroid Stimulating Hormone 0.428 uIU/mL (0.47-4.68)
== END ==
PROVIDERS: Family Provider Family Medicine; PCP Family Medicine; Referring Provider Family Medicine; Visit Provider Family Medicine
DX: M25.569 Pain in unspecified knee (principal); M11.261 Other chondrocalcinosis, right knee; E03.9 Hypothyroidism, unspecified
CPT/HCPCS: 36415; 73562; 84443

== ENCOUNTER → 2024-12-01 08:33 | Outpatient (CLI) | payer OTHER, SELFPAY ==
[2024-04-30 14:54] VITALS: BMI 31.6
[2024-12-01 09:58] LABS: HEMOLYSIS < 15 (0-50); Iron 65 ug/dL (37-170)
[2024-12-01 10:13] LABS: Percent Iron Saturation 22 % (15-50); Total Iron Binding Capacity 295 ug/dL (265-497); Transferrin 237 mg/dL (206-381)
[2024-12-01 10:31] LABS: Thyroid Stimulating Hormone 2.94 uIU/mL (0.47-4.68)
== END ==
PROVIDERS: Family Provider Family Medicine; PCP Family Medicine; Referring Provider Family Medicine; Visit Provider Family Medicine
DX: E03.9 Hypothyroidism, unspecified (principal); G25.81 Restless legs syndrome; I10 Essential (primary) hypertension
CPT/HCPCS: 36415; 83540; 83550; 84443

== ENCOUNTER → 2024-12-12 15:05 | Outpatient (CLI) | payer OTHER, SELFPAY ==
[2024-04-30 14:54] VITALS: BMI 31.6
[2024-12-12 16:41] LABS: HEMOLYSIS < 15 (0-50)
[2024-12-12 16:48] LABS: Alanine Aminotransferase 21 IU/L (<35); Albumin 4.7 g/dL (3.5-5.0); Albumin Globulin Ratio 1.4 (1.0-2.8); Alkaline Phosphatase 73 U/L (38-126); Aspartate Aminotransferase 30 IU/L (14-36); BUN Creatinine Ratio 29.8 (6-22); Bilirubin Total 0.3 mg/dL (0.2-1.3); Blood Urea Nitrogen 31 mg/dL (7-17); Calcium 9.8 mg/dL (8.4-10.2); Carbon Dioxide 26 mmol/L (22-32); Chloride 102 mmol/L (98-107); Estimated Glomerular Filt Rate 52 mL/min (>60); Globulin 3.4 g/dL (1.7-4.1); Glucose 109 mg/dL (80-110); Potassium 3.7 mmol/L (3.4-5.1); Sodium 138 mmol/L (137-145); Total Protein 8.1 g/dL (6.3-8.2)
[2024-12-12 16:56] LABS: NT-proBNP (BNP-Adult 18+) 63 pg/mL (<450)
[2024-12-12 17:43] LABS: Vitamin D 25 Hydroxy (D3) 43.4 ng/mL (30.0-100.0)
[2024-12-12 18:14] LABS: Vitamin B12 798 pg/mL (239-931)
== END ==
PROVIDERS: Family Provider Family Medicine; PCP Family Medicine; Referring Provider Family Medicine; Visit Provider Family Medicine
DX: R06.02 Shortness of breath; E55.9 Vitamin D deficiency, unspecified; G25.81 Restless legs syndrome; R73.03 Prediabetes; I10 Essential (primary) hypertension
CPT/HCPCS: 36415; 80053; 82306; 82607; 83880

== ENCOUNTER → 2025-01-22 14:49 | Outpatient (CLI) | payer OTHER, SELFPAY ==
[2024-04-30 14:54] VITALS: BMI 31.6
--- NOTE | 2025-01-22 14:51 | DI.MG.S_ITS ---
MM screening mammo BI: 01/22/2025. BI-RADS: 1 CLINICAL: 89-year old female for bilateral screening mammogram. No Tyrer-Cuzick risk score calculation due to patient's age being over 85 years old. No personal or first-degree family history of breast cancer. PRIOR EXAMS 01/10/2024, 11/26/2022, 11/25/2021, 10/17/2020, 09/08/2019, 08/25/2018, 04/29/2017, 04/16/2016, 04/14/2016, 04/03/2015. MAMMOGRAPHY TECHNIQUE: 2D and 3D (tomosynthesis) digital mammographic views obtained, with additional images as needed for full coverage. Current study was also evaluated with a Computer Aided Detection (CAD) system. DENSITY C. The breasts are heterogeneously dense, which may obscure small masses. MAMMOGRAPHY FINDINGS Bilateral: No suspicious mass, asymmetry, microcalcification, or other abnormality seen. No significant change from comparison. IMPRESSION: * No evidence of malignancy. RECOMMENDATIONS Bilateral * Annual screening mammography. OVERALL ASSESSMENT CATEGORY BI-RADS-1: Negative. The [employer] recommends annual screening mammography beginning at age 40 for women with average risk of breast cancer. ELECTRONICALLY SIGNED: Ely Jacinto M.D. on 01/23/2025 at 10:49:00 AM PT Interpreting Station ID: [id number]
== END ==
LOC: MAMMO 14:49
PROVIDERS: Family Provider Family Medicine; PCP Family Medicine; Referring Provider Family Medicine; Visit Provider Family Medicine
DX: Z12.31 Encounter for screening mammogram for malignant neoplasm of breast (principal); R92.333 Mammographic heterogeneous density, bilateral breasts
CPT/HCPCS: 77063; 77067

== ENCOUNTER → 2025-01-31 08:31 | Outpatient (CLI) | payer OTHER, SELFPAY ==
[2024-04-30 14:54] VITALS: BMI 31.6
[2025-01-31 10:34] LABS: TSH w/ Reflex to FT4 1.56 uIU/mL (0.47-4.68)
== END ==
PROVIDERS: Family Provider Family Medicine; PCP Family Medicine; Referring Provider Family Medicine; Visit Provider Family Medicine
DX: E03.9 Hypothyroidism, unspecified (principal)
CPT/HCPCS: 36415; 84443

== ENCOUNTER → 2025-02-06 09:49 | Outpatient (CLI) | payer OTHER, SELFPAY ==
[2024-04-30 14:54] VITALS: BMI 31.6
[2025-02-06 10:42] LABS: Add Manual Diff / Slide Review NO; Basophils Absolute Auto 0 /uL (0-100); Basophils Percent Auto 0.3 % (0-2); Eosinophils Absolute Auto 200 /uL (0-450); Eosinophils Percent Auto 2.7 % (2-4); Hematocrit 38.7 % (36-46); Hemoglobin 13.2 g/dL (12.0-16.0); Lymphocytes Absolute Auto 2300 /uL (1100-4500); Lymphocytes Percent Auto 28.3 % (25-40); Mean Corpuscular HGB Conc 34.1 % (30-36); Mean Corpuscular Hemoglobin 29.5 PG (26-34); Mean Corpuscular Volume 86.5 fL (80-100); Monocytes Absolute Auto 700 /uL (0-900); Neutrophils Absolute Auto 4900 /uL (1500-7000); Neutrophils Percent Auto 59.7 % (50-75); Platelet Count 259 X10^3/uL (150-400); Red Blood Cell Count 4.47 X10^6/uL (4.0-5.2); White Blood Cell Count 8.2 X10^3/uL (4.5-11.0)
[2025-02-09 15:09] LABS: Aspergillus fumigatus IgE <0.10 kU/L (Class 0)
[2025-02-11 15:08] LABS: Immunoglobulin E 31 IU/mL (6-495)
== END ==
PROVIDERS: Family Provider Family Medicine; PCP Family Medicine; Referring Provider Internal Medicine; Visit Provider Internal Medicine
DX: J45.40 Moderate persistent asthma, uncomplicated (principal)
CPT/HCPCS: 36415; 82785; 85025; 86003

== ENCOUNTER → 2025-02-22 07:23 | Outpatient (CLI) | payer OTHER, SELFPAY ==
[2024-04-30 14:54] VITALS: BMI 31.6
[2025-02-22 08:01] LABS: Hematocrit 37.7 % (36-46); Hemoglobin 12.8 g/dL (12.0-16.0); Mean Corpuscular Hemoglobin 29.8 PG (26-34); Mean Corpuscular Volume 87.7 fL (80-100); Platelet Count 265 X10^3/uL (150-400); Red Cell Distribution Width 14.5 % (11.6-14.8); White Blood Cell Count 8.9 X10^3/uL (4.5-11.0)
[2025-02-22 10:37] LABS: HEMOLYSIS < 15 (0-50); NT-proBNP (BNP-Adult 18+) 72 pg/mL (<450)
[2025-02-22 11:31] LABS: BUN Creatinine Ratio 23.4 (6-22); Blood Urea Nitrogen 22 mg/dL (7-17); Calcium 9.5 mg/dL (8.4-10.2); Carbon Dioxide 22 mmol/L (22-32); Chloride 105 mmol/L (98-107); Estimated Glomerular Filt Rate 59 mL/min (>60); Glucose 104 mg/dL (70-99); Sodium 138 mmol/L (137-145)
== END ==
PROVIDERS: Family Provider Family Medicine; PCP Family Medicine; Referring Provider Internal Medicine Cardiovascular Disease; Visit Provider Internal Medicine Cardiovascular Disease
DX: I50.32 Chronic diastolic (congestive) heart failure (principal); Z79.01 Long term (current) use of anticoagulants
CPT/HCPCS: 36415; 80048; 83880; 85027

== ENCOUNTER → 2025-06-24 14:06 | Outpatient (CLI) | payer OTHER, SELFPAY ==
[2024-04-30 14:54] VITALS: BMI 31.6
--- NOTE | 2025-06-24 14:07 | DI.RAD.S_ITS ---
PROCEDURE: XR FOOT LT MIN 3V INDICATIONS: left foot injury TECHNIQUE: 3 views of the foot were acquired. COMPARISON: None. FINDINGS: Bones: No fractures or dislocations. No suspicious bony lesions. Calcaneal midfoot spurs are present. Soft tissues: No tibiotalar joint effusion. Achilles tendon appears normal. IMPRESSION: No visualized acute fracture or dislocation. However, if clinical concern and/or pain persist, short interval imaging followup in 7-10 days is recommended, as occult injury cannot be definitively excluded. Dictated by: Rachna Hyman M.D. on 06/24/2025 at 17:09 Approved by: Rachna Hyman M.D. on 06/24/2025 at 17:09
== END ==
PROVIDERS: PCP Family Medicine; Referring Provider Physician Assistant Medical; Visit Provider Physician Assistant Medical
DX: S99.922A Unspecified injury of left foot, initial encounter (principal); M77.32 Calcaneal spur, left foot; X58.XXXA Exposure to other specified factors, initial encounter
CPT/HCPCS: 73630

== ENCOUNTER → 2025-08-30 12:16 | Outpatient (CLI) | payer OTHER, SELFPAY ==
[2024-04-30 14:54] VITALS: BMI 31.6
[2025-08-30 12:51] LABS: Add Manual Diff / Slide Review NO; Hematocrit 37.8 % (36-46); Hemoglobin 12.8 g/dL (12.0-16.0); Lymphocytes Absolute Auto 2400 /uL (1100-4500); Mean Corpuscular HGB Conc 33.8 % (30-36); Mean Corpuscular Hemoglobin 28.9 PG (26-34); Mean Corpuscular Volume 85.4 fL (80-100); Platelet Count 269 X10^3/uL (150-400)
[2025-08-30 13:26] LABS: HEMOLYSIS < 15 (0-50); NT-proBNP (BNP-Adult 18+) 94 pg/mL (<450)
[2025-08-30 15:47] LABS: Blood Urea Nitrogen 26 mg/dL (7-17); Calcium 9.3 mg/dL (8.4-10.2); Carbon Dioxide 20 mmol/L (22-32); Chloride 104 mmol/L (98-107); Estimated Glomerular Filt Rate 53 mL/min (>60); Glucose 116 mg/dL (70-99); Potassium 3.8 mmol/L (3.4-5.1); Sodium 138 mmol/L (137-145)
== END ==
PROVIDERS: PCP Family Medicine; Referring Provider Internal Medicine Cardiovascular Disease; Visit Provider Internal Medicine Cardiovascular Disease
DX: I50.32 Chronic diastolic (congestive) heart failure (principal)
CPT/HCPCS: 36415; 80048; 83880; 85025